=== PATIENT | female | born 1960 | race Caucasian/White ===

== ENCOUNTER 2020-11-23 16:18 | Inpatient (IN) | payer SELFPAY ==
--- OUTSIDE RECORDS SUMMARY | 2020-11-23 16:21 | XMS REPORT | Continuity of Care Document ---
:1960 Author Organization [facility] t Address [address] [place] [address] Care Team Providers Name Role Phone Unavailable Unavailable Unavailable Payers Payer Name Policy Type Policy Number Effective Date Expiration Date S ource Problems This patient has no known problems. Allergies, Adverse Reactions, Alerts Allergy Allergy Status Severity Reaction(s) Onset Inactive Treating Comm ents Source Name Type Date Date Clinician renata DA Active [place] [facility] ne 3-17 Clear 00:00: [address] Medications This patient has no known medications. Procedures This patient has no known procedures. Results Test Description Test Time Test Comments Results Result Comments Source COMPREHENSIVE METABOLIC PANEL 2019-06-27 05:44:00 Test Item Value Reference Range Interpretation Comme nts SODIUM (test code = NA) 139 mmol/L 134-147 N POTASSIUM (test code = K) 3.0 mmol/L 3.4-5.0 L CHLORIDE (test code = CL) 109 mmol/L 100-108 H CARBON DIOXIDE (test code = CO2) 25 mmol/L 21-32 N ANION GAP (test code = GAP) 5.0 GAP calc 4.0-15.0 N GLUCOSE (test code = GLU) 94 MG/DL 70-110 N BLOOD UREA NITROGEN (test code = BUN) 8 MG/DL 7-18 N GLOMERULAR FILTRATION RATE (test code = GFR) >=60 max estimate estG FR >60 CREATININE (test code = CREAT) 0.4 MG/DL 0.6-1.0 L TOTAL PROTEIN (test code = PROT) 6.1 G/DL 6.4-8.2 L ALBUMIN (test code = ALB) 2.7 G/DL 3.4-5.0 L GLOBULIN (test code = GLOB) 3.4 GM/dL ALBUMIN/GLOBULIN RATIO (test code = A/G) 0.8 RATIO 1.2-2.2 L CALCIUM (test code = CA) 8.4 MG/DL 8.5-10.1 L BILIRUBIN TOTAL (test code = BILT) 0.90 MG/DL 0.2-1.2 N SGOT/AST (test code = AST) 89 Unit/L 15-37 H SGPT/ALT (test code = ALT) 34 Unit/L 12-78 N ALKALINE PHOSPHATASE TOTAL (test code = ALKP) 71 Unit/L 45-117 N CBC W/AUTO [id number] 05:35:00 Test Item Value Reference Range Interpretation Comments WHITE BLOOD CELL (test code = 14.0 K/mm3 3.5-11.0 H WBC) RED BLOOD CELL (test code = RBC) 4.21 M/mm3 4.70-6.10 L HEMOGLOBIN (test code = HGB) 12.5 G/DL 10.4-14.9 N HEMATOCRIT (test code = HCT) 36.6 % 31.5-44.1 N MEAN CELL VOLUME (test code = 86.9 Fl 84.5-98.6 N MCV) MEAN CELL HGB (test code = MCH) 29.7 pg 27.0-34.2 N MEAN CELL HGB CONCETRATION (test 34.2 G/DL 31.5-34.0 H code = MCHC) RED CELL DISTRIBUTION WIDTH (test 12.8 SD 11.5-14.5 N code = RDW) PLATELET COUNT (test code = PLT) 197.0 K/mm3 150-450 N MEAN PLATELET VOLUME (test code = 11.60 fL 7.0-10.5 H MPV) NEUTROPHIL % (test code = NT%) 70.1 % 40-76 N LYMPHOCYTE % (test code = LY%) 19.0 % 20.5-51.1 L MONOCYTE % (test code = MO%) 9.3 % 1.7-9.3 N EOSINOPHIL % (test code = EO%) 1.1 % 0.0-6.0 N BASOPHIL % (test code = BA%) 0.5 % 0.0-2.0 N NEUTROPHIL # (test code = NT#) 9.82 K/mm3 1.8-7.6 H LYMPHOCYTE # (test code = LY#) 2.7 K/mm3 0.6-3.2 N MONOCYTE # (test code = MO#) 1.3 K/mm3 0.3-1.1 H EOSINOPHIL # (test code = EO#) 0.2 K/mm3 0.0-0.4 N BASOPHIL # (test code = BA#) 0.1 K/mm3 0.0-0.1 N MANUAL DIFF REQUIRED (test code = NO DIFF/SCN CRITERIA MDIFF) GLYCOSYLATED HEMOGLOBIN [id number] 06:58:00 Test Item Value Reference Range Interpretation Comments GLYCOSYLATED HEMOGLOBIN (HA1C) 5.1 % A1C 0.0-5.7 N (test code = GLYHGB) ESTIMATED AVERAGE GLUCOSE (test 100 MG/DLest code = EAG) COMPREHENSIVE METABOLIC [id number] 06:48:00 Test Item Value Reference Range Interpretation Comments SODIUM (test code = NA) 140 mmol/L 134-147 N POTASSIUM (test code = 3.4 mmol/L 3.4-5.0 N K) CHLORIDE (test code = 111 mmol/L 100-108 H CL) CARBON DIOXIDE (test 22 mmol/L 21-32 N code = CO2) ANION GAP (test code = 7.0 GAP calc 4.0-15.0 N GAP) GLUCOSE (test code = 101 MG/DL 70-110 N GLU) BLOOD UREA NITROGEN 6 MG/DL 7-18 L (test code = BUN) GLOMERULAR FILTRATION >=60 max estimate >60 RATE (test code = GFR) estGFR CREATININE (test code = 0.4 MG/DL 0.6-1.0 L CREAT) TOTAL PROTEIN (test code 5.8 G/DL 6.4-8.2 L = PROT) ALBUMIN (test code = 2.7 G/DL 3.4-5.0 L ALB) GLOBULIN (test code = 3.1 GM/dL GLOB) ALBUMIN/GLOBULIN RATIO 0.9 RATIO 1.2-2.2 L (test code = A/G) CALCIUM (test code = CA) 8.0 MG/DL 8.5-10.1 L BILIRUBIN TOTAL (test 0.70 MG/DL 0.2-1.2 N code = BILT) SGOT/AST (test code = 188 Unit/L 15-37 H AST) SGPT/ALT (test code = 43 Unit/L 12-78 N ALT) ALKALINE PHOSPHATASE 67 Unit/L 45-117 N TOTAL (test code = ALKP) LIPID PROFILE (CORONARY RISK)2019-06-26 06:48:00 Test Item Value Reference Range Interpretation Comments TRIGLYCERIDES (test code = TRIG) 170 MG/DL 0-150 H CHOLESTEROL (test code = CHOL) 177 MG/DL 133-200 N CHOLESTEROL/HDL RATIO (test code = 6.56 RATIO >0 CHOLHDL) HDL CHOLESTEROL (test code = HDL) 27 MG/DL 40-59 L NON-HDL CHOLESTEROL (test code = 150 mg/dL <130 H NHDL) LIPOPROTEIN LDL (test code = LDL) 126 MG/DL 0-129 N LDL/HDL (test code = LDL/HDL) 4.66 Ratio 1.48-3.22 Avg H [id number] 06:48:00 Test Item Value Reference Range Interpretation Comments PHOSPHOROUS (test code = PHOS) 2.2 MG/DL 2.5-4.9 L [id number] 06:48:00 Test Item Value Reference Range Interpretation Comments MAGNESIUM (test code = MAG) 1.8 MG/DL 1.8-2.4 N CBC W/AUTO [id number] 06:35:00 Test Item Value Reference Range Interpretation Comments WHITE BLOOD CELL (test code = 15.8 K/mm3 3.5-11.0 H WBC) RED BLOOD CELL (test code = RBC) 4.31 M/mm3 4.70-6.10 L HEMOGLOBIN (test code = HGB) 12.8 G/DL 10.4-14.9 N HEMATOCRIT (test code = HCT) 37.6 % 31.5-44.1 N MEAN CELL VOLUME (test code = 87.2 Fl 84.5-98.6 N MCV) MEAN CELL HGB (test code = MCH) 29.7 pg 27.0-34.2 N MEAN CELL HGB CONCETRATION (test 34.0 G/DL 31.5-34.0 N code = MCHC) RED CELL DISTRIBUTION WIDTH (test 12.9 SD 11.5-14.5 N code = RDW) PLATELET COUNT (test code = PLT) 208.0 K/mm3 150-450 N MEAN PLATELET VOLUME (test code = 11.30 fL 7.0-10.5 H MPV) NEUTROPHIL % (test code = NT%) 76.2 % 40-76 H LYMPHOCYTE % (test code = LY%) 17.3 % 20.5-51.1 L MONOCYTE % (test code = MO%) 5.4 % 1.7-9.3 N EOSINOPHIL % (test code = EO%) 0.6 % 0.0-6.0 N BASOPHIL % (test code = BA%) 0.5 % 0.0-2.0 N NEUTROPHIL # (test code = NT#) 12.06 K/mm3 1.8-7.6 H LYMPHOCYTE # (test code = LY#) 2.7 K/mm3 0.6-3.2 N MONOCYTE # (test code = MO#) 0.9 K/mm3 0.3-1.1 N EOSINOPHIL # (test code = EO#) 0.1 K/mm3 0.0-0.4 N BASOPHIL # (test code = BA#) 0.1 K/mm3 0.0-0.1 N MANUAL DIFF REQUIRED (test code = NO DIFF/SCN CRITERIA MDIFF) COAGULATION TIME [id number] 14:53:00 Test Item Value Reference Range Interpretation Comments COAGULATION TIME ACTIVATED (test 142 SECistat 74-125 H code = ACT) - XR CHEST 1 [id number] 10:40:00 Name: MARGIE COLLINS [facility] : 1960 Age/S: 58 / F [id number] [address] Unit #: [id number] Loc: [place] [address] Phys: Ramses Horowitz MD Acct: [id number] Dis Date: Status: ADM IN PHONE #: [phone] Exam Date: 06/25/2019 100 FAX #: Reason: STEMI EXAMS: CPT: [id number] XR CHEST 1 V [id number] Fluoro Time: DAP (Gy m2): Air Kerma (mGy): EXAM: - XR CHEST 1 V Location code:C3 HISTORY: Follow-up evaluation COMPARISON: 05/27/2019FINDINGS: Frontal view of the chest is submitted. Heart size within normal limits. Mild pulmonary congestive changes noted. The lungs are clear of focal consolidation. No effusion or evidence of pneumothorax.. No acute osseous pathology. IMPRESSION 1. Mild pulmonary congestive changes. No large effusion. at 1040 Reported and signed by: Ro Fuentes M.D. CC: Ramses Horowitz MD; Alistair Hays MD PAGE 1 Signed Report Name: MARGIE COLLINS [place] : 1960 Age/S: 58 / F [id number] [address] Unit #: [id number] Loc: [place] [address] Phys: Ramses Horowitz MD Acct: [id number] Dis Date: Status: ADM IN PHONE #: [phone] Exam Date: 06/25/2019 100 FAX #: Reason: STEMI EXAMS: CPT: [id number] XR CHEST 1 V 31300 Fluoro Time: DAP (Gy m2): Air Kerma (mGy): <Continued> Technologist: Una Ron, RT(R)(CT) Trnscb Date/Time: 06/25/2019 (1040) [id number] Orig Print D/T: S: 06/25/2019 (1043) PAGE 2 Signed ReportCOAGULATION TIME [id number] 07:17:00 Test Item Value Reference Range Interpretation Comments COAGULATION TIME ACTIVATED (test 384 SECistat 74-125 H code = ACT) TROPONIN I [id number] 07:12:00 Test Item Value Reference Range Interpretation Comments TROPONIN I RAPID 0.09 ng/mL 0.00-0.08 H Results above 0.08 are (test code = consistent with NACB TROPIRAP) IFCCCommittee recommendations to use the 99th percen tile of anormal populat ion as a reference decis ion-limit. - The use of se rial sampling and testingprotocol is arecommended pr actice.- An elevated tro poninlevel alone is often not sufficientfor d iagnosis of myocardial i nfraction. BASIC METABOLIC [id number] 06:22:00 Test Item Value Reference Range Interpretation Comments SODIUM (test code = NA) 140 mmol/L 134-147 N POTASSIUM (test code = 3.1 mmol/L 3.4-5.0 L K) CHLORIDE (test code = 110 mmol/L 100-108 H CL) CARBON DIOXIDE (test 21 mmol/L 21-32 N code = CO2) ANION GAP (test code = 9.0 GAP calc 4.0-15.0 N GAP) GLUCOSE (test code = 147 MG/DL 70-110 H GLU) BLOOD UREA NITROGEN 6 MG/DL 7-18 L (test code = BUN) GLOMERULAR FILTRATION >=60 max estimate >60 RATE (test code = GFR) estGFR CREATININE (test code = 0.7 MG/DL 0.6-1.0 N CREAT) CALCIUM (test code = CA) 8.5 MG/DL 8.5-10.1 N Completed by Nursing: IDANIAREATINE KINASE (CK)2019-06-25 06:22:00 Test Item Value Reference Range Interpretation Comments CREATINE KINASE (CK) (test code = 52 Unit/L 26-192 N CK) Completed by Nursing: [id number] 06:22:00 Test Item Value Reference Range Interpretation Comments TROPONIN-I (test 0.301 NG/ML 0.000-0.045 HH Negative: < /= 0.045 code = TROPI) Positive: >/= 0.046 Correlation wit h serial results, other cardiac markers, and cl inical findings is nec essary to determine the c linical significance of this result. Quantit ative results using d ifferent methodologies s hould not be compared to one another as nume rical results may hever yby method. Completed by Nursing: NOBASIC METABOLIC [id number] 06:03:00 Test Item Value Reference Range Interpretation Comments SODIUM (test code = NA) 140 mmol/L 134-147 N POTASSIUM (test code = K) 3.1 mmol/L 3.4-5.0 L CHLORIDE (test code = CL) 110 mmol/L 100-108 H CARBON DIOXIDE (test code = CO2) 21 mmol/L 21-32 N ANION GAP (test code = GAP) 9.0 GAP calc 4.0-15.0 N GLUCOSE (test code = GLU) 147 MG/DL 70-110 H BLOOD UREA NITROGEN (test code = 6 MG/DL 7-18 L BUN) GLOMERULAR FILTRATION RATE (test estGFR >60 code = GFR) CREATININE (test code = CREAT) MG/DL 0.6-1.0 CALCIUM (test code = CA) 8.5 MG/DL 8.5-10.1 N Completed by Nursing: IDANIAREATINE KINASE (CK)2019-06-25 06:03:00 Test Item Value Reference Range Interpretation Comments CREATINE KINASE (CK) (test code = CK) Unit/L 26-192 Completed by Nursing: [id number] 06:03:00 Test Item Value Reference Range Interpretation Comments TROPONIN-I (test code = TROPI) NG/ML 0.000-0.045 Completed by Nursing: NOCBC W/O [id number] 05:56:00 Test Item Value Reference Range Interpretation Comments WHITE BLOOD CELL (test code = 17.7 K/mm3 3.5-11.0 H WBC) RED BLOOD CELL (test code = RBC) 5.11 M/mm3 4.70-6.10 N HEMOGLOBIN (test code = HGB) 15.1 G/DL 10.4-14.9 H HEMATOCRIT (test code = HCT) 43.4 % 31.5-44.1 N MEAN CELL VOLUME (test code = 84.9 Fl 84.5-98.6 N MCV) MEAN CELL HGB (test code = MCH) 29.5 pg 27.0-34.2 N MEAN CELL HGB CONCETRATION (test 34.8 G/DL 31.5-34.0 H code = MCHC) RED CELL DISTRIBUTION WIDTH (test 12.7 SD 11.5-14.5 N code = RDW) PLATELET COUNT (test code = PLT) 323.0 K/mm3 150-450 N MEAN PLATELET VOLUME (test code = 11.10 fL 7.0-10.5 H MPV) - XR CHEST 1 [id number] 05:51:00 Name: MARGIE COLLINS [facility] : 1960 Age/S: 58 / F [address] [facility] Unit #: [id number] Loc: [place] [address] Phys: Ilir Bundy MD Acct: [id number] Dis Date: Status: ADM IN PHONE #: [phone] Exam Date: 06/25/201945 FAX #: Reason: chest pain EXAMS: CPT: [id number] XR CHEST 1 V 79837 Fluoro Time: DAP (Gy m2): Air Kerma (mGy): EXAMINATION: - XR CHEST 1 V LOCATION: H61 INDICATION/CLINICAL HISTORY: chest pain COMPARISON: None. TECHNIQUE: Frontal view of the chest. FINDINGS: Cardiomedia stinal silhouette: Mild enlargement of the cardiac silhouette. Pulmonary vasculature: Not congested. Lungs/pleura: No consolidation, pneumothorax or pleural effusion. Upper abdomen: Unremarkable. Regional osseous structures: Intact. IMPRESSION: No acute cardiopulmonary findings. at 0551 Reported and signed by: Mason Small M.D. CC: Ilir Bundy MD PAGE 1 Signed Report Name: MARGIE COLLINS [place] : 1960 Age/S: 58 / F [id number] Unit #: [id number] Loc: [place] [address] Phys: Ilir Bundy MD Acct: [id number] Dis Date: Status: ADM IN PHONE #: [phone] Exam Date: 06/25/201945 FAX#: Reason: chest pain EXAMS: CPT: [id number] XR CHEST 1 V 86887 Fluoro Time: DAP (Gy m2): Air Kerma (mGy): <Continued& gt; Technologist: RT Michael(R) Trnscb Date/Time: 06/25/2019 (0551) [id number] Orig Print D/T: S: 06/25/2019 (0554) PAGE 2 Signed Report
[2020-11-23 18:50] LABS: Urine Blood 1+ (Negative); Urine Glucose Negative (Negative); Urine Protein 2+ (Negative)
[2020-11-23 19:10] LABS: Urine Bacteria 20-50 /HPF (<20); Urine Mucus 2+ /HPF (NONE SEEN)
--- NOTE | 2020-11-23 21:59 | RAD REPORT ---
EXAM DESCRIPTION: RAD - Chest Single View - 11/23/2020 9:15 pm CLINICAL HISTORY: COUGH COMPARISON: August 2012 TECHNIQUE: AP portable chest image was obtained 11/23/2020 9:15 pm . FINDINGS: No peripheral mass or consolidation. Interstitial pattern is similar to comparison when ad justing for the differences in technology and technique between the 8 year interval. No failure or vo lume overload. Heart and vasculature are normal. No measurable pleural effusion and no pneumothorax. No acute bony abnormality seen. No acute aortic findings suspected. IMPRESSION: No acute cardiopulmonary process. No significant change from comparison study.
[2020-11-23 22:11] LABS: Protime INR 1.28
[2020-11-23 22:12] LABS: Absolute Lymphocytes (CBC) 2.4 K/uL (0.7-4.9); Basophils % 0.3 % (0-1.3); Hematocrit 33.5 % (36.0-45.0); Lymphocytes % 14.4 % (15.3-44.8); MPV 8.5 fL (7.6-11.3)
[2020-11-23 22:24] LABS: ALT/SGPT 71 U/L (12-78); AST/SGOT 44 U/L (15-37); Albumin 2.4 g/dL (3.4-5.0); Alkaline Phosphatase 292 U/L (45-117); BUN Blood Urea Nitrogen 13 mg/dL (7-18); Bicarbonate 32 mmol/L (21-32); Bilirubin Direct 0.2 mg/dL (0-0.2); Bilirubin Total 0.6 mg/dL (0.2-1.0); Glucose Level 104 mg/dL (74-106); Lipase 110 U/L (73-393); NT PRO-BNP 793 pg/mL (<125); Protein, Total 8.2 g/dL (6.4-8.2); Sodium Level 135 mmol/L (136-145); Troponin (Emerg Dept Use Only) < 0.02 ng/mL (0.0-0.045)
[2020-11-23 22:25] LABS: Potassium 2.8 mmol/L (3.5-5.1)
[2020-11-23] MEDS ORDERED: CEFTRIAXONE/SWI 1gm 1 GM/10 ML SYR ONE (22:27)
[2020-11-23] MEDS ORDERED: NA CHLORIDE 0.9% 1,000 ML ONE (22:27)
[2020-11-23 22:31] LABS: Thyroid Stimulating Hormone 1.7 uIU/mL (0.360-3.740)
[2020-11-23 22:34] LABS: Magnesium 2.1 mg/dL (1.8-2.4)
[2020-11-23 22:47] LABS: Phosphorus 3.8 mg/dL (2.5-4.9)
[2020-11-23] MEDS ORDERED: NS KCL 20MEQ 1,000 ML IV ONE (23:55)
[2020-11-23] MEDS ORDERED: FAMOTIDINE 20 MG/2 ML VIAL IV ONE (23:55)
[2020-11-23] MEDS ORDERED: POTASSIUM 25 MEQ EFFERV TAB ONE (23:55)
--- NOTE | 2020-11-24 00:25 | ER ---
Nurse's Notes [facility] Name: Idalmis Charles Age: 60 yrs Sex: Female : 1960 Arrival Date: 11/23/2020 Time: 16:43 Bed 28 Private MD: Diagnosis: Pyelonephritis acute;Hypokalemia;Weakness;Elevated white blood cell count Presentation: 11/23 16:59 Chief complaint: Generalized weakness and lack of appetite x 2 weeks. Denies hb pain/fever/cough/N/V/D. Coronavirus screen: At this time, the client does not indicate any symptoms associated with coronavirus-19. Ebola Screen: No symptoms or risks identified at this time. Risk Assessment: Do you want to hurt yourself or someone else? Patient reports no desire to harm self or others. Onset of symptoms was November 09, 2020. 16:59 Method Of Arrival: Wheelchair hb 16:59 Acuity: BAR 3 hb Historical: - Allergies: 17:01 meperidine HCl; hb - Immunization history:: Client reports receiving the 2nd dose of the Covid vaccine. - Social history:: Smoking status: Patient denies any tobacco usage or history of. Assessment: 11/24 03:05 General: Appears in no apparent distress. comfortable, Behavior is calm, cooperative. ch4 Pain: Denies pain. Neuro: No deficits noted. Cardiovascular: No deficits noted. Respiratory: Respiratory pattern is tachypnea. GI: No deficits noted. : Reports burning with urination, pain urgency, urinary frequency. EENT: No deficits noted. Derm: No deficits noted. Musculoskeletal: Reports weakness in right leg and left leg. 05:08 Reassessment: Patient is alert, oriented x 3, equal unlabored respirations, skin ch4 warm/dry/pink. Patient states feeling better. Vital Signs: 11/23 16:59 BP 128 / 88; Pulse 99; Resp 16; Temp 97.5; Pulse Ox 98% on R/A; Weight 65.77 kg; Height hb 5 ft. 2 in. (157.48 cm); Pain 0/10; 11/24 01:48 BP 136 / 96; Pulse 97; Resp 16; Temp 97.8; Pulse Ox 95% ; ch4 03:06 BP 100 / 65; Pulse 98; Resp 27; Temp 97.9; Pulse Ox 96% ; ch4 05:09 BP 116 / 85; Pulse 93; Resp 20; Temp 97.9; Pulse Ox 96% on R/A; ch4 11/23 16:59 Body Mass Index 26.52 (65.77 kg, 157.48 cm) hb ED Course: 11/23 16:43 Patient arrived in ED. ds1 17:00 Triage completed. hb 17:01 Arm band placed on. hb 18:51 Urine Microscopic Only Sent. hb 20:12 Antony Palacio MD is Attending Physician. ju 21:15 XRAY Chest (1 view) In Process Unspecified. EDMS 22:30 Abel Kapadia MD is Hospitalizing Provider. ju 22:58 CT Chest, Abdomen, Pelvis - W/Contrast In Process Unspecified. EDMI 11/24 00:17 Giancarlo Pereira is Hospitalizing Provider. ju 01:34 Violeta Gutierrez, VIKASH is Primary Nurse. ch4 01:44 LFT's Sent. ch4 01:44 CBC with Diff Sent. ch4 01:44 Basic Metabolic Panel Sent. ch4 03:06 Inserted saline lock: 20 gauge in right antecubital area, using aseptic technique. ch4 Administered Medications: 11/23 22:47 Discontinued: NS 0.9% 1000 ml IV at 1 bolus Per protocol; 1000 mL bolus ju 22:15 Drug: NS 0.9% 1000 ml Route: IV; Rate: 1 bolus; Site: right antecubital; bb 23:46 Follow up: IV Status: Completed infusion; IV Intake: 1000ml bb 22:15 Drug: Rocephin (cefTRIAXone) 1 grams Route: IV; Rate: per protocol; Site: right bb antecubital; 23:45 Drug: Potassium Effervescent Tablet 50 mEq Route: PO; bb 23:45 Drug: Pepcid (famotidine) 20 mg Route: IVP; Site: right antecubital; bb 23:46 Drug: NS 0.9% with KCl 20 mEq/L 1000 ml Route: IV; Rate: 125 ml/hr; Site: right bb antecubital; Intake: 23:46 IV: 1000ml; Total: 1000ml. bb Outcome: 22:31 Decision to Hospitalize by Provider. ju 11/24 00:25 Decision to Hospitalize by Provider. ju 11/25 12:59 Patient left the ED. ld1 Signatures: Dispatcher [employer] Antony Jennings MD MD cha Sanford, Kathy ds1 Awilda Burr, RN RN bb Ana Lilia Jones, RN RN hb Stefanie Ayers RN RN ld1 Violeta Gutierrez RN RN ch4
--- NOTE | 2020-11-24 00:26 | EDPHYS ---
Physician Documentation [facility] Name: Idalmis Charles Age: 60 yrs Sex: Female : 1960 Arrival Date: 11/23/2020 Time: 16:43 Bed 28 Private MD: MARILUZ Physician Antony Palacio HPI: 11/23 20:41 This 60 yrs old Female presents to ER via Wheelchair with complaints of ju General Weakness. 20:41 weak, not eating, foul urine. Onset: The symptoms/episode began/occurred 5 day(s) ago. ju Severity of symptoms: At their worst the symptoms were mild in the emergency department the symptoms are unchanged. The patient has not experienced similar symptoms in the past. Historical: - Allergies: 17:01 meperidine HCl; hb - Immunization history:: Client reports receiving the 2nd dose of the Covid vaccine. - Social history:: Smoking status: Patient denies any tobacco usage or history of. ROS: 20:42 Constitutional: Negative for fever, chills, and weight loss, Eyes: Negative for injury, ju pain, redness, and discharge, ENT: Negative for injury, pain, and discharge, Neck: Negative for injury, pain, and swelling, Cardiovascular: Negative for chest pain, palpitations, and edema, Respiratory: Negative for shortness of breath, cough, wheezing, and pleuritic chest pain, Back: Negative for injury and pain, MS/Extremity: Negative for injury and deformity, Skin: Negative for injury, rash, and discoloration, Neuro: Negative for headache, weakness, numbness, tingling, and seizure, Psych: Negative for depression, anxiety, suicide ideation, homicidal ideation, and hallucinations, Allergy/Immunology: Negative for hives, rash, and allergies, Endocrine: Negative for neck swelling, polydipsia, polyuria, polyphagia, and marked weight changes, Hematologic/Lymphatic: Negative for swollen nodes, abnormal bleeding, and unusual bruising. 20:42 Abdomen/GI: Positive for 20:42 : Positive for foul smelling urine. Exam: 20:42 Constitutional: This is a well developed, well nourished patient who is awake, alert, ju and in no acute distress. Head/Face: Normocephalic, atraumatic. Eyes: Pupils equal round and reactive to light, extra-ocular motions intact. Lids and lashes normal. Conjunctiva and sclera are non-icteric and not injected. Cornea within normal limits. Periorbital areas with no swelling, redness, or edema. ENT: Nares patent. No nasal discharge, no septal abnormalities noted. Tympanic membranes are normal and external auditory canals are clear. Oropharynx with no redness, swelling, or masses, exudates, or evidence of obstruction, uvula midline. Mucous membranes moist. Neck: Trachea midline, no thyromegaly or masses palpated, and no cervical lymphadenopathy. Supple, full range of motion without nuchal rigidity, or vertebral point tenderness. No Meningismus. Chest/axilla: Normal chest wall appearance and motion. Nontender with no deformity. No lesions are appreciated. Cardiovascular: Regular rate and rhythm with a normal S1 and S2. No gallops, murmurs, or rubs. Normal PMI, no JVD. No pulse deficits. Respiratory: Lungs have equal breath sounds bilaterally, clear to auscultation and percussion. No rales, rhonchi or wheezes noted. No increased work of breathing, no retractions or nasal flaring. Abdomen/GI: Soft, non-tender, with normal bowel sounds. No distension or tympany. No guarding or rebound. No evidence of tenderness throughout. Back: No spinal tenderness. No costovertebral tenderness. Full range of motion. Skin: Warm, dry with normal turgor. Normal color with no rashes, no lesions, and no evidence of cellulitis. MS/ Extremity: Pulses equal, no cyanosis. Neurovascular intact. Full, normal range of motion. Neuro: Awake and alert, GCS 15, oriented to person, place, time, and situation. Cranial nerves II-XII grossly intact. Motor strength 5/5 in all extremities. Sensory grossly intact. Cerebellar exam normal. Normal gait. Psych: Awake, alert, with orientation to person, place and time. Behavior, mood, and affect are within normal limits. 20:42 Musculoskeletal/extremity: DVT Exam: No signs of deep vein thrombosis. no pain, no swelling, no tenderness, negative Homans' sign noted on exam, no appreciated bluish discoloration, no erythema, no increased warmth. 22:12 ECG was reviewed by the Attending Physician. ju Vital Signs: 16:59 BP 128 / 88; Pulse 99; Resp 16; Temp 97.5; Pulse Ox 98% on R/A; Weight 65.77 kg; Height hb 5 ft. 2 in. (157.48 cm); Pain 0/10; 11/24 01:48 BP 136 / 96; Pulse 97; Resp 16; Temp 97.8; Pulse Ox 95% ; ch4 03:06 BP 100 / 65; Pulse 98; Resp 27; Temp 97.9; Pulse Ox 96% ; ch4 05:09 BP 116 / 85; Pulse 93; Resp 20; Temp 97.9; Pulse Ox 96% on R/A; ch4 11/23 16:59 Body Mass Index 26.52 (65.77 kg, 157.48 cm) hb [facility]: 11/23 20:12 Patient medically screened. [facility] 20:43 Differential diagnosis: urinary tract infection. Data reviewed: vital signs, nurses [facility] notes, lab test result(s), EKG, radiologic studies, plain films. Data interpreted: environmental monitoring specialist: rate is 99 beats/min, rhythm is regular, Pulse oximetry: on room air is 98 %. Test interpretation: by ED physician or midlevel provider: ECG, plain radiologic studies. Counseling: I had a detailed discussion with the patient and/or guardian regarding: the historical points, exam findings, and any diagnostic results supporting the discharge/admit diagnosis, lab results, radiology results. 11/23 18:49 Order name: Urine Microscopic Only 11/23 18:49 Order name: Urine Dipstick-Ancillary; Complete Time: 20:30 [facility] 11/23 18:49 Order name: Urine Microscopic Only; Complete Time: 20:30 [facility] 11/23 19:11 Order name: Urine Culture [facility] 11/23 20:32 Order name: Basic Metabolic Panel [facility] 11/23 20:32 Order name: CBC with Diff [facility] 11/23 20:32 Order name: LFT's [facility] 11/23 20:32 Order name: Magnesium; Complete Time: 22:44 [facility] 11/23 20:32 Order name: NT PRO-BNP; Complete Time: 22:44 [facility] 11/23 20:32 Order name: PT-INR; Complete Time: 22:26 [facility] 11/23 20:32 Order name: Troponin (emerg Dept Use Only); Complete Time: 22:44 [facility] 11/23 20:32 Order name: Lipase; Complete Time: 22:44 [facility] 11/23 20:32 Order name: Blood Culture Adult (2) ju 11/23 20:32 Order name: Basic Metabolic Panel; Complete Time: 22:44 [facility] 11/23 20:32 Order name: CBC with Automated Diff; Complete Time: 22:26 [facility] 11/23 20:32 Order name: Liver (Hepatic) Function; Complete Time: 22:44 [facility] 11/23 21:54 Order name: TSH; Complete Time: 22:48 ju 11/23 22:35 Order name: Phosphorus; Complete Time: 22:48 ED[facility] 11/24 01:24 Order name: SARS-COV-2 RT PCR [facility] 11/24 07:54 Order name: CBC with Automated Diff [facility] 11/24 08:31 Order name: Comprehensive Metabolic Panel [facility] 11/24 08:31 Order name: Lipid Profile ED[facility] 11/24 08:31 Order name: Magnesium EDMS 11/24 08:31 Order name: Thyroid Stimulating Hormone EDMS 11/25 03:39 Order name: CBC with Automated Diff EDMS 11/25 03:44 Order name: Comprehensive Metabolic Panel EDMS 11/25 03:44 Order name: Magnesium EDMS 11/25 04:10 Order name: T4 Free EDMS 11/23 18:49 Order name: Urine Dipstick-Ancillary (obtain specimen); Complete Time: 18:49 11/23 20:32 Order name: XRAY Chest (1 view); Complete Time: 22:26 ju 11/23 20:32 Order name: EKG; Complete Time: 20:33 ju 11/23 20:32 Order name: Cardiac monitoring; Complete Time: 01:44 [facility] 11/23 20:32 Order name: EKG - Nurse/Tech; Complete Time: 01:44 [facility] 11/23 20:32 Order name: IV Saline Lock; Complete Time: 00:53 [facility] 11/23 20:32 Order name: Labs collected and sent; Complete Time: 00:53 [facility] 11/23 20:32 Order name: O2 Per Protocol; Complete Time: 00:53 [facility] 11/23 20:32 Order name: O2 Sat Monitoring; Complete Time: 00:53 [facility] 11/23 22:29 Order name: CT Chest, Abdomen, Pelvis - W/Contrast [facility] 11/25 04:10 Order name: Transferrin Sat/Iron Binding [facility] 11/25 04:10 Order name: Ferritin [facility] 11/25 04:10 Order name: Vitamin B12 Level EDMS EC:12 Rate is 102 beats/min. Rhythm is regular. QRS [place] is Normal. ID interval is normal. ju QRS interval is normal. QT interval is normal. No Q waves. T waves are Normal. No ST changes noted. Clinical impression: Abnormal EKG without significant change and No evidence of ischemia. Interpreted by me. Reviewed by me. Administered Medications: 22:47 Discontinued: NS 0.9% 1000 ml IV at 1 bolus Per protocol; 1000 mL bolus ju 22:15 Drug: NS 0.9% 1000 ml Route: IV; Rate: 1 bolus; Site: right antecubital; bb 23:46 Follow up: IV Status: Completed infusion; IV Intake: 1000ml bb 22:15 Drug: Rocephin (cefTRIAXone) 1 grams Route: IV; Rate: per protocol; Site: right bb antecubital; 23:45 Drug: Potassium Effervescent Tablet 50 mEq Route: PO; bb 23:45 Drug: Pepcid (famotidine) 20 mg Route: IVP; Site: right antecubital; bb 23:46 Drug: NS 0.9% with KCl 20 mEq/L 1000 ml Route: IV; Rate: 125 ml/hr; Site: right bb antecubital; Disposition Summary: 11/24/20 00:25 Hospitalization Ordered Hospitalization Status: Inpatient Admission(11/24/20 00:25) ju Provider: Giancarlo Pereira(11/24/20 00:25) ju Condition: Fair(11/24/20 00:25) ju Problem: new(11/24/20 00:25) ju Symptoms: have improved(11/24/20 00:25) ju Bed/Room Type: Standard(11/24/20 00:25) ju Location: [facility] ER HOLD(11/24/20 02:35) mw Room Assignment: ERHOLD-(11/24/20 02:35) mw Diagnosis - Pyelonephritis acute ju - Hypokalemia ju - Weakness ju - Elevated white blood cell count ju Forms: - Medication Reconciliation Form ju - SBAR form ju Signatures: Dispatcher [employer] [facility] Yaritza Hanson RN RN mw Anderson, Corey, MD MD cha Ballard, Brenda, RN RN bb Attema, Lee, FNP-C FNP-Ana Lilia Paniagua, RN RN hb Corrections: (The following items were deleted from the chart) 22:31 22:31 Inpatient Admission ju ju 22:31 22:31 Abel Kapadia ju ju 22:31 22:31 Telemetry/MedSurg (Inpatient) ju ju 22:31 22:31 Stable ju ju 22:31 22:31 new ju ju 22:31 22:31 have improved ju ju 22:31 22:31 Standard ju ju 22:31 22:31 ju ju 22:31 22:31 COPD/ Chronic obstructive pulmonary disease, unspecified ju ju 22:31 22:31 COPD/ Chronic obstructive pulmonary disease with (acute) exacerbation ju ju 22:31 22:31 Dyspnea ju ju 22:35 22:28 PHOSPHORUS+C.LAB.BRZ ordered. EDMS EDMS 23:56 23:42 CORONAVIRUS+MR.LAB.BRZ ordered. EDMS EDMS 11/24 02:35 00:25 Telemetry/MedSurg (Inpatient) ju mw 02:35 00:25 ju mw
--- NOTE | 2020-11-24 01:26 | P.HP ---
Certification for Inpatient Patient admitted to: Inpatient With expected LOS: >2 Midnights Patient will require the following post-hospital care: None Practitioner: I am a practitioner with admitting privileges, knowledge of patient current condition, hospital course, and medical plan of care. Services: Services provided to patient in accordance with Admission requirements found in Title 42 Section 412.3 of the Code of Federal Regulations Patient History Date of Service: 11/24/20 Primary Care Provider: Dr. Fernandes Reason for admission: Bilateral pyelonephritis, hypokalemia History of Present Illness: 60-year-old female with history of CAD, hyperlipidemia, hypertension presents emergency department for malaise, fatigue over the course of last 2 weeks. Patient was evaluated in the emergency department labs were significant for white blood cell count 16.7 hemoglobin 1.5 adequate 33.5 sodium 135 potassium 2.8 chloride 95 alk phos 292 BNP 793 urinalysis with positive nitrite 2+ leukoesterase, microscopic with 20-50 bacteria greater than [address] abdomen pelvis with bilateral pyelonephritis. ED provider wishes to admit for hypokalemia, pyelonephritis. Allergies meperidine HCl [From Demerol] Allergy (Severe, Verified 08/29/12 20:58) Pt states "went into coma for 21 days" Home Medications: Propranolol [Inderal*] 20 mg PO BID 08/28/12 Valsartan [Diovan*] DAILY 08/28/12 Butalbital/Acetaminophen [Bupap Tablet] 1 each PO Q6HP PRN #40 tablet 08/30/12 Naproxen [Naprosyn] 500 mg PO BID #60 tablet 08/30/12 Tizanidine [Zanaflex*] 2 mg PO TIDP PRN #60 tab 08/30/12 - Past Medical/Surgical History Diabetic: No -: CAD -: Hypertension -: Hyperlipidemia -: Hysterectomy -: Left ankle -: Right surgery Psychosocial/ Personal History: Patient lives at home with her family - Family History Father -: Cancer - Social History Smoking Status: Never smoker Alcohol use: No CD- Drugs: No Caffeine use: Yes Place of Residence: Home Review of Systems 10-point ROS is otherwise unremarkable General: Chills, Sweats, Weakness, Malaise Physical Examination - Physical Exam General: Alert, In no apparent distress, Oriented x3 HEENT: Atraumatic, PERRLA, Mucous membr. moist/pink, EOMI, Sclerae nonicteric Neck: Supple, 2+ carotid pulse no bruit, No LAD, Without JVD or thyroid abnormality Respiratory: Clear to auscultation bilaterally, Normal air movement Cardiovascular: Regular rate/rhythm, Normal S1 S2 Capillary refill: <2 Seconds Gastrointestinal: Normal bowel sounds, No tenderness Musculoskeletal: No tenderness Integumentary: No rashes Neurological: Normal speech, Normal strength at 5/5 x4 extr, Normal tone, Normal affect - Studies Laboratory Data (last 24 hrs) 11/23/20 22:27: Phosphorus Cancelled 11/23/20 21:51: Phosphorus 3.8 11/23/20 21:51: PT 14.7 H, INR 1.28 11/23/20 21:51: WBC 16.70 H, Hgb 11.5 L, Hct 33.5 L, Plt Count 514 H 11/23/20 21:20: Sodium 135 L, Potassium 2.8 L*, BUN 13, Creatinine 0.58, Glucose 104, Magnesium 2.1, Total Bilirubin 0.6, AST 44 H, ALT 71, Alkaline Phosphatase 292 H, Lipase 110 Assessment and Plan - Plan Assessment: Bilateral pyelonephritis Hypokalemia CAD Hypertension Hyperlipidemia Plan: Bilateral pyelonephritis: Continue with IV Rocephin, full liquid diet advance as tolerated. Daily labs. Patient afebrile at this time. Anticipate clinical improvement over the course next 24 to 48 hours. Hypokalemia: Replaced in ER, continue with potassium protocol. CAD: Continue medications. Hypertension: Continue home medications Hyperlipidemia: Continue home medications DVT PPX: Lovenox Code status: Full Discharge Plan: Home Plan to discharge in: 48 Hours - Advance Directives Does patient have a Living Will: Yes Does patient have a Durable POA for Healthcare: No - Code Status/Comfort Care Code Status Assessed: Yes (Full code) Critical Care: No Time Spent Managing Pts Care (In Minutes): 55
--- NOTE | 2020-11-24 06:23 | P.PN ---
Subjective Date of Service: 11/24/20 Primary Care Provider: Dr. Fernandes Chief Complaint: Bilateral pyelonephritis, hypokalemia Subjective: Improving (Patient reports improvement.) Physical Examination - Studies Laboratory Data (last 24 hrs) 11/23/20 22:27: Phosphorus Cancelled 11/23/20 21:51: Phosphorus 3.8 11/23/20 21:51: PT 14.7 H, INR 1.28 11/23/20 21:51: WBC 16.70 H, Hgb 11.5 L, Hct 33.5 L, Plt Count 514 H 11/23/20 21:20: Sodium 135 L, Potassium 2.8 L*, BUN 13, Creatinine 0.58, Glucose 104, Magnesium 2.1, Total Bilirubin 0.6, AST 44 H, ALT 71, Alkaline Phosphatase 292 H, Lipase 110 Assessment & Plan Discharge Plan: Home Plan to discharge in: 48 Hours Physician Review Additional Text: COVID: negative CT Scan: TECHNIQUE: CT images through the chest, abdomen, and pelvis following IV contrast. Multiplanar reformats. Automated exposure control was utilized on this examination as a dose lowering technique. CT CHEST FINDINGS: Heart and mediastinum: Heart size is normal. Small pericardial effusion. Severe multivessel calcified and soft atherosclerosis. Mediastinal lymph nodes are increased in number but not in size and are favored to be reactive. Thyroid gland: Visualized portions are normal. Lungs: Moderate emphysema. Numerous small bilateral pulmonary nodules measure up to 4 mm in the left upper lobe (reference nodule series 401 image 26, left lower lobe). Airways: No filling defects. No bronchiectasis. Pleura: No pneumothorax. No significant pleural effusion. Musculoskeletal and soft tissues: Breast implants are noted. CHEST IMPRESSION: 1. Numerous bilateral small pulmonary nodules are likely infectious or inflammatory. If patient is low risk for malignancy, no routine follow-up imaging is recommended; if patient is high risk for malignancy, a non- contrast Chest CT at 12 months is optional. If performed and the nodules are stable at 12 months, no further follow-up is recommended. 2. Small pericardial effusion. 3. Severe atherosclerosis. 4. Moderate emphysema. 5. Reactive appearing mediastinal lymph nodes. CT ABDOMEN & PELVIS FINDINGS: Liver: A 1.5 cm arterially enhancing lesion is noted in the lateral right liver, likely representing a perfusion anomaly or hemangioma. Gallbladder and biliary: Normal gallbladder. Unremarkable biliary tree. Pancreas: Normal. Spleen: Normal. Kidneys and adrenal glands: Normal adrenal glands. Bilateral renal cysts are present. Areas of cortical hypoenhancement are present bilaterally. Left ureteral wall enhancement is noted. Stomach and Small Bowel: The stomach and small bowel are normal. Urinary bladder: Normal. Uterus and Adnexa: Hysterectomy. Colon and Appendix: The colon is unremarkable. No evidence of appendicitis. Peritoneal cavity: No ascites or free air. Retroperitoneum and lymph nodes: Retroperitoneal lymph nodes are increased in number but not in size and are likely reactive. Vascular: Severe multivessel calcified and soft atherosclerosis with focal 50% narrowing of the aorta on series 501 image 20 at the diaphragmatic hiatus. Musculoskeletal and soft tissues: Soft tissues are unremarkable. Lumbar spondylosis.No aggressive bone lesions. No compression fracture. ABDOMEN AND PELVIS IMPRESSION: 1. Bilateral renal cortical hypoenhancing areas likely represent pyelonephritis. 2. Severe atherosclerosis with 50% focal narrowing of the aorta at the diaphragmatic hiatus. CXR: COMPARISON: August 2012 TECHNIQUE: AP portable chest image was obtained 11/23/2020 9:15 pm . FINDINGS: No peripheral mass or consolidation. Interstitial pattern is similar to comparison when adjusting for the differences in technology and technique between the 8 year interval. No failure or volume overload. Heart and vasculature are normal. No measurable pleural effusion and no pneumothorax. No acute bony abnormality seen. No acute aortic findings suspected. IMPRESSION: No acute cardiopulmonary process. No significant change from comparison study. Physical exam: General: Alert, In no apparent distress, Oriented x3 HEENT: Atraumatic, PERRLA, Mucous membr. moist/pink, EOMI, Sclerae nonicteric Neck: Supple, 2+ carotid pulse no bruit, No LAD, Without JVD or thyroid abnormality Respiratory: Clear to auscultation bilaterally, Normal air movement Cardiovascular: Regular rate/rhythm, Normal S1 S2 Capillary refill: <2 Seconds Gastrointestinal: Normal bowel sounds, No tenderness Musculoskeletal: No tenderness Integumentary: No rashes Neurological: Normal speech, Normal strength at 5/5 x4 extr, Normal tone, Normal affect Impression: Bilateral pyelonephritis Hypokalemia CAD Hypertension Hyperlipidemia CT scan showing multiple small pulmonary nodules, moderate emphysema, reactive mediastinal lymph nodes, with possible small pericardial effusion Anemia likely dilutional Plan: Bilateral pyelonephritis: Patient improved. Will change IV Rocephin to IV Cipro for better pyelonephritis coverage. Will check echocardiogram. Await blood, urine culture results. Will advance diet. Will provide medication for pain. Continue Lovenox for DVT prophylaxis. Anticipate continued improvement. Hypokalemia: Electrolyte protocol in place. CAD: Need to obtain and restart home medication. Hypertension: Blood pressure stable off medication at this time. Obtain and verify home medication. Hyperlipidemia: Obtain and verify home medication. CT scan showing multiple small pulmonary nodules, moderate emphysema, reactive mediastinal lymph nodes, with possible small pericardial effusion: Will check echocardiogram to further evaluate. Plenty nodules can be followed up as an outpatient with pulmonology with repeat CT scan. Anemia likely dilutional: Continue to monitor lab closely. Will check iron and B12 studies. DVT PPX: Lovenox Code status: Full Discharge Plan: Home Time Spent Managing Pts Care (In Minutes): 55
[2020-11-24] MEDS ORDERED: ONDANSETRON 4 MG/2 ML VIAL IV PRN (07:19)
[2020-11-24] MEDS ORDERED: ACETAMINOPHEN 500 MG TAB PO PRN (07:19)
[2020-11-24] MEDS: NA CHLORIDE 0.9% 1,000 ML IV SCH ×3 (07:19→23:05)
[2020-11-24 07:53] LABS: Basophils % 0.4 % (0-1.3); Hematocrit 28.2 % (36.0-45.0); Lymphocytes % 15.6 % (15.3-44.8); MPV 8.2 fL (7.6-11.3); RBC Red Blood Cell Count 3.25 M/uL (3.86-4.86)
[2020-11-24] MEDS: CIPROFLOXACIN 400mg IV 400 MG/200 ML BAG IV SCH ×2 (08:17→21:02)
[2020-11-24] MEDS: ENOXAPARIN 40 MG/0.4 ML SQ SCH (08:17)
[2020-11-24 08:20] LABS: ALT/SGPT 48 U/L (12-78); AST/SGOT 25 U/L (15-37); Alkaline Phosphatase 221 U/L (45-117); BUN Blood Urea Nitrogen 10 mg/dL (7-18); Bicarbonate 32 mmol/L (21-32); Bilirubin Total 0.5 mg/dL (0.2-1.0); Glucose Level 105 mg/dL (74-106); HDL Cholesterol 14 mg/dL (40-60); LDL Cholesterol, Calculated 87 (<130); Potassium 3.2 mmol/L (3.5-5.1); Protein, Total 6.7 g/dL (6.4-8.2); Sodium Level 140 mmol/L (136-145)
[2020-11-24] MEDS ORDERED: CIPROFLOXACIN 400mg IV 400 MG/200 ML BAG IV ONE ×2 (08:29→21:24)
[2020-11-24] MEDS ORDERED: ENOXAPARIN 40 MG/0.4 ML SQ ONE (08:29)
[2020-11-24] MEDS ORDERED: NA CHLORIDE 0.9% 1,000 ML ONE ×2 (08:30→23:15)
[2020-11-24 08:57] VITALS: BMI 26.5
[2020-11-24] MEDS ORDERED: CEFTRIAXONE/SWI 1gm 1 GM/10 ML SYR IV SCH (09:00)
[2020-11-24] MEDS ORDERED: CEFTRIAXONE 1 GM/NS 50 ML 1 GM/50 ML BAG IV SCH (09:00)
--- NOTE | 2020-11-24 10:49 | RAD REPORT ---
EXAM DESCRIPTION: CT Chest, Abdomen, and Pelvis COMPARISON: None. CLINICAL HISTORY: [facility] TECHNIQUE: CT images through the chest, abdomen, and pelvis following IV contrast. Multiplanar refor mats. Automated exposure control was utilized on this examination as a dose lowering technique. CT CHEST FINDINGS: Heart and mediastinum: Heart size is normal. Small pericardial effusion. Severe m ultivessel calcified and soft atherosclerosis. Mediastinal lymph nodes are increased in number but no t in size and are favored to be reactive. Thyroid gland: Visualized portions are normal. Lungs: Moderate emphysema. Numerous small bilateral pulmonary nodules measure up to 4 mm in the left upper lobe (reference nodule series 401 image 26, left lower lobe). Airways: No filling defects. No bronchiectasis. Pleura: No pneumothorax. No significant pleural effusion. Musculoskeletal and soft tissues: Breast implants are noted. CHEST IMPRESSION: 1. Numerous bilateral small pulmonary nodules are likely infectious or inflammator y. If patient is low risk for malignancy, no routine follow-up imaging is recommended; if patient i s high risk for malignancy, a non-contrast Chest CT at 12 months is optional. If performed and the no dules are stable at 12 months, no further follow-up is recommended. 2. Small pericardial effusion. 3. Severe atherosclerosis. 4. Moderate emphysema. 5. Reactive appearing mediastinal lymph nodes. CT ABDOMEN & PELVIS FINDINGS: Liver: A 1.5 cm arterially enhancing lesion is noted in the lateral ri ght liver, likely representing a perfusion anomaly or hemangioma. Gallbladder and biliary: Normal gallbladder. Unremarkable biliary tree. Pancreas: Normal. Spleen: Normal. Kidneys and adrenal glands: Normal adrenal glands. Bilateral renal cysts are present. Areas of cortic al hypoenhancement are present bilaterally. Left ureteral wall enhancement is noted. Stomach and Small Bowel: The stomach and small bowel are normal. Urinary bladder: Normal. Uterus and Adnexa: Hysterectomy. Colon and Appendix: The colon is unremarkable. No evidence of appendicitis. Peritoneal cavity: No ascites or free air. Retroperitoneum and lymph nodes: Retroperitoneal lymph nodes are increased in number but not in size and are likely reactive. Vascular: Severe multivessel calcified and soft atherosclerosis with focal 50% narrowing of the aorta on series 501 image 20 at the diaphragmatic hiatus. Musculoskeletal and soft tissues: Soft tissues are unremarkable. Lumbar spondylosis.No aggressive bon e lesions. No compression fracture. ABDOMEN AND PELVIS IMPRESSION: 1. Bilateral renal cortical hypoenhancing areas likely represent pyel onephritis. 2. Severe atherosclerosis with 50% focal narrowing of the aorta at the diaphragmatic hiatus. Electronically signed by: Trever Jerome MD 11/23/2020 11:56 PM CDT Due to temporary technical issues with the PACS/Fluency reporting system, reports are being signed by the in house radiologists without review as a courtesy to insure prompt reporting. The interpreting radiologist is fully responsible for the content of the report.
[2020-11-24] MEDS ORDERED: HYDROCODONE/APAP 7.5/325 MG TAB PO PRN (12:35)
[2020-11-24] MEDS ORDERED: TRAMADOL HCL 50 MG TAB PO PRN (12:35)
--- NOTE | 2020-11-24 16:55 | EKG ---
Test Date: 2020-11-23 Test Time: 21:56:16 Hand Chain Maker: ARTUR MEASUREMENT RESULTS: Intervals: Rate: 102 KS: 164 QRSD: 110 QT: 386 QTc: 503 Golden: P: 74 KS: 164 QRS: 75 T: 62 INTERPRETIVE STATEMENTS: Sinus tachycardia Incomplete right bundle branch block Borderline ECG Compared to ECG 08/29/2012 06:41:37 Incomplete right bundle-branch block now present Sinus rhythm no longer present Left-axis deviation no longer present Electronically Signed On 11-24-20 16:53:35 CDT by Shane French
[2020-11-25] MEDS: NA CHLORIDE 0.9% 1,000 ML IV SCH (00:31)
[2020-11-25 03:24] LABS: Absolute Lymphocytes (CBC) 2.4 K/uL (0.7-4.9); Basophils % 0.6 % (0-1.3); Hematocrit 28.9 % (36.0-45.0); Lymphocytes % 18.5 % (15.3-44.8); MPV 8.5 fL (7.6-11.3); RBC Red Blood Cell Count 3.31 M/uL (3.86-4.86)
[2020-11-25 03:35] VITALS: O2SAT 95
[2020-11-25 03:44] LABS: ALT/SGPT 40 U/L (12-78); AST/SGOT 18 U/L (15-37); Alkaline Phosphatase 197 U/L (45-117); BUN Blood Urea Nitrogen 9 mg/dL (7-18); Bicarbonate 31 mmol/L (21-32); Bilirubin Total 0.4 mg/dL (0.2-1.0); Glucose Level 102 mg/dL (74-106); Magnesium 1.9 mg/dL (1.8-2.4); Potassium 3.2 mmol/L (3.5-5.1); Protein, Total 6.7 g/dL (6.4-8.2); Sodium Level 142 mmol/L (136-145)
[2020-11-25 04:09] LABS: Ferritin 486.6 ng/mL (8-388)
--- NOTE | 2020-11-25 06:26 | P.PN ---
Subjective Date of Service: 11/25/20 Primary Care Provider: Dr. Fernandes Chief Complaint: Bilateral pyelonephritis, hypokalemia Subjective: Improving, Doing well Physical Examination - Vital Signs Temperature: 97.3 F Blood Pressure: 135/82 Pulse: 100 Respirations: 19 Pulse Ox (%): 96 Assessment & Plan Discharge Plan: Home Physician Review Additional Text: COVID: negative CT Scan: TECHNIQUE: CT images through the chest, abdomen, and pelvis following IV contrast. Multiplanar reformats. Automated exposure control was utilized on this examination as a dose lowering technique. CT CHEST FINDINGS: Heart and mediastinum: Heart size is normal. Small pericardial effusion. Severe multivessel calcified and soft atherosclerosis. Mediastinal lymph nodes are increased in number but not in size and are favored to be reactive. Thyroid gland: Visualized portions are normal. Lungs: Moderate emphysema. Numerous small bilateral pulmonary nodules measure up to 4 mm in the left upper lobe (reference nodule series 401 image 26, left lower lobe). Airways: No filling defects. No bronchiectasis. Pleura: No pneumothorax. No significant pleural effusion. Musculoskeletal and soft tissues: Breast implants are noted. CHEST IMPRESSION: 1. Numerous bilateral small pulmonary nodules are likely infectious or inflammatory. If patient is low risk for malignancy, no routine follow-up imaging is recommended; if patient is high risk for malignancy, a non- contrast Chest CT at 12 months is optional. If performed and the nodules are stable at 12 months, no further follow-up is recommended. 2. Small pericardial effusion. 3. Severe atherosclerosis. 4. Moderate emphysema. 5. Reactive appearing mediastinal lymph nodes. CT ABDOMEN & PELVIS FINDINGS: Liver: A 1.5 cm arterially enhancing lesion is noted in the lateral right liver, likely representing a perfusion anomaly or hemangioma. Gallbladder and biliary: Normal gallbladder. Unremarkable biliary tree. Pancreas: Normal. Spleen: Normal. Kidneys and adrenal glands: Normal adrenal glands. Bilateral renal cysts are present. Areas of cortical hypoenhancement are present bilaterally. Left ureteral wall enhancement is noted. Stomach and Small Bowel: The stomach and small bowel are normal. Urinary bladder: Normal. Uterus and Adnexa: Hysterectomy. Colon and Appendix: The colon is unremarkable. No evidence of appendicitis. Peritoneal cavity: No ascites or free air. Retroperitoneum and lymph nodes: Retroperitoneal lymph nodes are increased in number but not in size and are likely reactive. Vascular: Severe multivessel calcified and soft atherosclerosis with focal 50% narrowing of the aorta on series 501 image 20 at the diaphragmatic hiatus. Musculoskeletal and soft tissues: Soft tissues are unremarkable. Lumbar spon dylosis.No aggressive bone lesions. No compression fracture. ABDOMEN AND PELVIS IMPRESSION: 1. Bilateral renal cortical hypoenhancing areas likely represent pyelonephritis. 2. Severe atherosclerosis with 50% focal narrowing of the aorta at the diaphragmatic hiatus. CXR: COMPARISON: August 2012 TECHNIQUE: AP portable chest image was obtained 11/23/2020 9:15 pm . FINDINGS: No peripheral mass or consolidation. Interstitial pattern is similar to comparison when adjusting for the differences in technology and technique between the 8 year interval. No failure or volume overload. Heart and vasculature are normal. No measurable pleural effusion and no pneumothorax. No acute bony abnormality seen. No acute aortic findings suspected. IMPRESSION: No acute cardiopulmonary process. No significant change from comparison study. ECHO: MEASUREMENTS (cm) DIASTOLIC (NORMALS) SYSTOLIC (NORMALS) IVSd 1.0 (0.6-1.2) LA Diam 3.4 (1.9-4.0) LVEF 59% LVIDd 3.8 (3.5-5.7) LVIDs 2.6 (2.0-3.5) %FS 31% LVPWd 0.9 (0.6-1.2) Ao Diam 2.4 (2.0-3.7) 2 DIMENSIONAL ASSESSMENT: RIGHT ATRIUM: NORMAL LEFT ATRIUM: NORMAL RIGHT VENTRICLE: NORMAL LEFT VENTRICLE: NORMAL TRICUSPID VALVE: NORMAL MITRAL VALVE: NORMAL PULMONIC VALVE: NORMAL AORTIC VALVE: NORMAL PERICARDIAL EFFUSION: TRACE AORTIC ROOT: NORMAL LEFT VENTRICULAR WALL MOTION: NORMAL DOPPLER/COLOR FLOW: NORMAL COMMENTS: TRACE PERICARDIAL EFFUSION. NORMAL LEFT VENTRICULAR SIZE AND FUNCTION. Physical exam: General: Alert, In no apparent distress, Oriented x3 HEENT: Atraumatic, PERRLA, Mucous membr. moist/pink, EOMI, Sclerae nonicteric Neck: Supple, 2+ carotid pulse no bruit, No LAD, Without JVD or thyroid abnormality Respiratory: Clear to auscultation bilaterally, Normal air movement Cardiovascular: Regular rate/rhythm, Normal S1 S2 Capillary refill: <2 Seconds Gastrointestinal: Normal bowel sounds, No tenderness Musculoskeletal: No tenderness Integumentary: No rashes Neurological: Normal speech, Normal strength at 5/5 x4 extr, Normal tone, Normal affect Impression: Bilateral pyelonephritis Hypokalemia CAD Hypertension Hyperlipidemia CT scan showing multiple small pulmonary nodules, moderate emphysema, reactive mediastinal lymph nodes, with possible small pericardial effusion Anemia likely dilutional Plan: Bilateral pyelonephritis: Patient improved and doing well. She is currently on Cipro IV. Urine culture pending. Blood culture negative. She is without pain. She is wanting to go home today. We will plan for discharge today. Hypokalemia: Electrolyte protocol in place. CAD: Need to obtain and restart home medication. Hypertension: Blood pressure stable off medication at this time. Obtain and verify home medication. Hyperlipidemia: Obtain and verify home medication. CT scan showing multiple small pulmonary nodules, moderate emphysema, reactive mediastinal lymph nodes, with possible small pericardial effusion: Will check echocardiogram to further evaluate. Plenty nodules can be followed up as an outpatient with pulmonology with repeat CT scan. Anemia likely dilutional: We will start iron supplementation at discharge DVT PPX: Lovenox Code status: Full Discharge Plan: Home Time Spent Managing Pts Care (In Minutes): 55
--- NOTE | 2020-11-25 08:21 | ECHO ---
HEIGHT: 5 ft 2 in WEIGHT: 144 lb 15.968 oz DATE OF STUDY: 11/24/[address]: Elmer Harris DO 2-DIMENSIONAL: YES M.MODE: YES DOPPLER: YES COLOR FLOW: YES TDS: NO PORTABLE: NO DEFINITY: NO BUBBLE STUDY: NO DIAGNOSIS: PERICARDIAL EFFUSION CARDIAC HISTORY: CATHERIZATION: NO SURGERY: NO PROSTHETIC VALVE: NO PACEMAKER: NO MEASUREMENTS (cm) DIASTOLIC (NORMALS) SYSTOLIC (NORMALS) IVSd 1.0 (0.6-1.2) LA Diam 3.4 (1.9-4.0) LVEF 59% LVIDd 3.8 (3.5-5.7) LVIDs 2.6 (2.0-3.5) %FS 31% LVPWd 0.9 (0.6-1.2) Ao Diam 2.4 (2.0-3.7) 2 DIMENSIONAL ASSESSMENT: RIGHT ATRIUM: NORMAL LEFT ATRIUM: NORMAL RIGHT VENTRICLE: NORMAL LEFT VENTRICLE: NORMAL TRICUSPID VALVE: NORMAL MITRAL VALVE: NORMAL PULMONIC VALVE: NORMAL AORTIC VALVE: NORMAL PERICARDIAL EFFUSION: TRACE AORTIC ROOT: NORMAL LEFT VENTRICULAR WALL MOTION: NORMAL DOPPLER/COLOR FLOW: NORMAL COMMENTS: TRACE PERICARDIAL EFFUSION. NORMAL LEFT VENTRICULAR SIZE AND FUNCTION. TECHNOLOGIST: Beth YI
[2020-11-25] MEDS ORDERED: NA CHLORIDE 0.9% 1,000 ML ONE (08:48)
[2020-11-25] MEDS: CIPROFLOXACIN 400mg IV 400 MG/200 ML BAG IV SCH (09:00)
[2020-11-25] MEDS: ENOXAPARIN 40 MG/0.4 ML SQ SCH (09:00)
[2020-11-25] MEDS ORDERED: THIAMINE HCL 100 MG TABLET PO SCH (09:00)
[2020-11-25] MEDS ORDERED: FOLIC ACID 1 MG TABLET PO SCH (09:00)
[2020-11-25] MEDS ORDERED: POTASSIUM CL SA 10 MEQ TAB PO ONE ×2 (09:00→09:41)
[2020-11-25] MEDS ORDERED: THIAMINE HCL 100 MG TABLET ONE (09:41)
[2020-11-25] MEDS ORDERED: ENOXAPARIN 40 MG/0.4 ML SQ ONE (09:41)
[2020-11-25] MEDS ORDERED: FOLIC ACID 1 MG TABLET ONE (09:41)
[2020-11-25] MEDS ORDERED: CIPROFLOXACIN 400mg IV 400 MG/200 ML BAG IV ONE (09:42)
--- NOTE | 2020-11-25 10:57 | P.DS ---
Admission Date: 11/24/20 Discharge Date: 11/25/20 Primary Care Provider: Dr. Fernandes Disposition: ROUTINE DISCHARGE Discharge Condition: GOOD Reason for Admission: Bilateral pyelonephritis, hypokalemia Consultations: none Procedures: COVID: negative CT Scan: TECHNIQUE: CT images through the chest, abdomen, and pelvis following IV c ontrast. Multiplanar reformats. Automated exposure control was utilized on this examination as a dose lowering technique. CT CHEST FINDINGS: Heart and mediastinum: Heart size is normal. Small bette cardial effusion. Severe multivessel calcified and soft atherosclerosis. Mediastinal lymph nodes are increased in number but not in size and are favored to be reactive. Thyroid gland: Visualized portions are normal. Lungs: Moderate emphysema. Numerous small bilateral pulmonary nodules measure up to 4 mm in the left upper lobe (reference nodule series 401 image 26, left lower lobe). Airways: No filling defects. No bronchiectasis. Pleura: No pneumothorax. No significant pleural effusion. Musculoskeletal and soft tissues: Breast implants are noted. CHEST IMPRESSION: 1. Numerous bilateral small pulmonary nodules are likely infectious or inflammatory. If patient is low risk for malignancy, no routine follow-up imaging is recommended; if patient is high risk for malignancy, a non- contrast Chest CT at 12 months is optional. If performed and the nodules are stable at 12 months, no further follow-up is recommended. 2. Small pericardial effusion. 3. Severe atherosclerosis. 4. Moderate emphysema. 5. Reactive appearing mediastinal lymph nodes. CT ABDOMEN & PELVIS FINDINGS: Liver: A 1.5 cm arterially enhancing lesion is noted in the lateral right liver, likely representing a perfusion anomaly or hemangioma. Gallbladder and biliary: Normal gallbladder. Unremarkable biliary tree. Pancreas: Normal. Spleen: Normal. Kidneys and adrenal glands: Normal adrenal glands. Bilateral renal cysts are present. Areas of cortical hypoenhancement are present bilaterally. Left ureteral wall enhancement is noted. Stomach and Small Bowel: The stomach and small bowel are normal. Urinary bladder: Normal. Uterus and Adnexa: Hysterectomy. Colon and Appendix: The colon is unremarkable. No evidence of appendicitis. Peritoneal cavity: No ascites or free air. Retroperitoneum and lymph nodes: Retroperitoneal lymph nodes are increased in number but not in size and are likely reactive. Vascular: Severe multivessel calcified and soft atherosclerosis with focal 50% narrowing of the aorta on series 501 image 20 at the diaphragmatic hiatus. Musculoskeletal and soft tissues: Soft tissues are unremarkable. Lumbar spondylosis.No aggressive bone lesions. No compression fracture. ABDOMEN AND PELVIS IMPRESSION: 1. Bilateral renal cortical hypoenhancing areas likely represent pyelonephritis. 2. Severe atherosclerosis with 50% focal narrowing of the aorta at the diaphragmatic hiatus. CXR: COMPARISON: August 2012 TECHNIQUE: AP portable chest image was obtained 11/23/2020 9:15 pm . FINDINGS: No peripheral mass or consolidation. Interstitial pattern is similar to comparison when adjusting for the differences in technology and technique between the 8 year interval. No failure or volume overload. Heart and vasculature are normal. No measurable pleural effusion and no pneumothorax. No acute bony abnormality seen. No acute aortic findings suspected. IMPRESSION: No acute cardiopulmonary process. No significant change from comparison study. ECHO: MEASUREMENTS (cm) DIASTOLIC (NORMALS) SYSTOLIC (NORMALS) IVSd 1.0 (0.6-1.2) LA Diam 3.4 (1.9-4.0) LVEF 59% LVIDd 3.8 (3.5-5.7) LVIDs 2.6 (2.0-3.5) %FS 31% LVPWd 0.9 (0.6-1.2) Ao Diam 2.4 (2.0-3.7) 2 DIMENSIONAL ASSESSMENT: RIGHT ATRIUM: NORMAL LEFT ATRIUM: NORMAL RIGHT VENTRICLE: NORMAL LEFT VENTRICLE: NORMAL TRICUSPID VALVE: NORMAL MITRAL VALVE: NORMAL PULMONIC VALVE: NORMAL AORTIC VALVE: NORMAL PERICARDIAL EFFUSION: TRACE AORTIC ROOT: NORMAL LEFT VENTRICULAR WALL MOTION: NORMAL DOPPLER/COLOR FLOW: NORMAL COMMENTS: TRACE PERICARDIAL EFFUSION. NORMAL LEFT VENTRICULAR SIZE AND FUNCTION. Medical problem list: Bilateral pyelonephritis Hypokalemia CAD Hypertension Hyperlipidemia CT scan showing multiple small pulmonary nodules, moderate emphysema, reactive mediastinal lymph nodes, with possible small pericardial effusion Anemia likely dilutional with iron deficiency History of tobacco abuse Brief History of Present Illness: 60-year-old female with history of CAD, hyperlipidemia, hypertension presents emergency department for malaise, fatigue over the course of last 2 weeks. Patient was evaluated in the emergency department labs were significant for white blood cell count 16.7 hemoglobin 1.5 adequate 33.5 sodium 135 potassium 2.8 chloride 95 alk phos 292 BNP 793 urinalysis with positive nitrite 2+ leukoesterase, microscopic with 20-50 bacteria greater than [address] abdomen pelvis with bilateral pyelonephritis. Patient was admitted for treatment. Hospital Course: Patient presented with fatigue secondary to bilateral pyelonephritis. Patient was admitted for treatment. Patient received IV fluids and antibiotic therapy. Patient has improved. Blood cultures negative. Urine culture pending. White count improved. Patient has significantly improved. Patient desires to leave. With improved status patient will be discharged home with Cipro 500 mg 1 pill twice daily for 10 days. Recommend follow-up with PCP within 1 week to follow- up his hospitalization. PCP will need to follow-up on urine culture results. These will result tomorrow. Education on pyelonephritis provided. Recommend to recheck urine culture in 1 week to monitor resolution. UTI prevention provided. Patient with history of CAD, hypertension, hyperlipidemia. Patient takes valsartan and propanolol. Blood pressure stable off medication at this time. Recommend to hold medication at this time. Recommend to monitor blood pressure daily. Recommend to maintain blood pressure less than 130/80. If blood pressure remains above 140/90 then she may restart her medication with the help of her PCP. Recommend follow-up with her PCP within 1 week to further monitor and address. CT scan showed multiple small pulmonary nodules, moderate emphysema, reactive mediastinal lymph nodes with small pericardial effusion. Echocardiogram shows trace pericardial effusion. Ejection fraction within normal range. Patient likely with underlying COPD. Recommend follow-up with PCP to further evaluate and monitor. Patient may benefit with pulmonology evaluation as an outpatient for pulmonary function test to further evaluate. Patient will also benefit with repeat CT scan in the future to monitor stability of pulmonary nodules. Recommend recheck echocardiogram within 1 month to monitor the pericardial effusion. Patient may also benefit evaluation by cardiology as an outpatient due to her chronic conditions including CAD, hypertension and hyperlipidemia. Patient with anemia. This is likely dilutional. Iron deficiency noted. Patient will continue with iron supplementation daily. Recommend to recheck labCBC in 1 to 2 weeks to monitor her progress. This can be done with the help of her PCP. Vital Signs/Physical Exam: Temp Pulse Resp BP Pulse Ox 97.3 F 100 H 19 135/82 96 11/25/20 10:56 11/25/20 10:56 11/25/20 10:56 11/25/20 10:56 11/25/20 10:56 General: Alert, In no apparent distress, Oriented x3, Cooperative HEENT: Atraumatic Neck: Supple Respiratory: Clear to auscultation bilaterally, Normal air movement Cardiovascular: Normal pulses, Regular rate/rhythm Gastrointestinal: Normal bowel sounds, No ascites, No tenderness, No masses, No rebound, No guarding Musculoskeletal: No tenderness, No warmth Integumentary: No tenderness/swelling Neurological: Normal speech, Normal strength at 5/5 x4 extr, Normal tone Laboratory Data at Discharge: WBC 12.80 K/uL (4.3-10.9) H 11/25/20 02:48 Hgb 9.8 g/dL (12.0-15.0) L 11/25/20 02:48 Hct 28.9 % (36.0-45.0) L 11/25/20 02:48 Plt Count 460 K/uL (152-406) H 11/25/20 02:48 PT 14.7 SECONDS (9.5-12.5) H 11/23/20 21:51 INR 1.28 11/23/20 21:51 Sodium 142 mmol/L (136-145) 11/25/20 02:48 Potassium 3.2 mmol/L (3.5-5.1) L 11/25/20 02:48 BUN 9 mg/dL (7-18) 11/25/20 02:48 Creatinine 0.47 mg/dL (0.55-1.3) L 11/25/20 02:48 Glucose 102 mg/dL (74-106) 11/25/20 02:48 Phosphorus Cancelled 11/23/20 22:27 Magnesium 1.9 mg/dL (1.8-2.4) 11/25/20 02:48 Total Bilirubin 0.4 mg/dL (0.2-1.0) 11/25/20 02:48 AST 18 U/L (15-37) 11/25/20 02:48 ALT 40 U/L (12-78) 11/25/20 02:48 Alkaline Phosphatase 197 U/L (45-117) H 11/25/20 02:48 Triglycerides 104 mg/dL (<150) 11/24/20 07:34 Cholesterol 122 mg/dL (<200) 11/24/20 07:34 HDL Cholesterol 14 mg/dL (40-60) L 11/24/20 07:34 Cholesterol/HDL Ratio 8.71 11/24/20 07:34 Lipase 110 U/L (73-393) 11/23/20 21:20 Home Medications: Ciprofloxacin HCl [Cipro 500 MG Tablet] 500 mg PO BID #20 tab 11/25/20 Ferrous Sulfate [Ferrous Sulfate*] 325 mg PO DAILY #30 tab 11/25/20 New Medications: Ciprofloxacin HCl [Cipro 500 MG Tablet] 500 mg PO BID #20 tab Ferrous Sulfate [Ferrous Sulfate*] 325 mg PO DAILY #30 tab Physician Discharge Instructions: Patient presented with fatigue secondary to bilateral pyelonephritis. Patient was admitted for treatment. Patient received IV fluids and antibiotic therapy. Patient has improved. Blood cultures negative. Urine culture pending. White count improved. Patient has significantly improved. Patient desires to leave. With improved status patient will be discharged home with Cipro 500 mg 1 pill twice daily for 10 days. Recommend follow-up with PCP within 1 week to follow- up his hospitalization. PCP will need to follow-up on urine culture results. These will result tomorrow. Education on pyelonephritis provided. Recommend to recheck urine culture in 1 week to monitor resolution. UTI prevention provided. Patient with history of CAD, hypertension, hyperlipidemia. Patient takes valsartan and propanolol. Blood pressure stable off medication at this time. Recommend to hold medication at this time. Recommend to monitor blood pressure daily. Recommend to maintain blood pressure less than 130/80. If blood pressure remains above 140/90 then she may restart her medication with the help of her PCP. Recommend follow-up with her PCP within 1 week to further monitor and address. CT scan showed multiple small pulmonary nodules, moderate emphysema, reactive mediastinal lymph nodes with small pericardial effusion. Echocardiogram shows trace pericardial effusion. Ejection fraction within normal range. Patient likely with underlying COPD. Recommend follow-up with PCP to further evaluate and monitor. Patient may benefit with pulmonology evaluation as an outpatient for pulmonary function test to further evaluate. Patient will also benefit with repeat CT scan in the future to monitor stability of pulmonary nodules. Recommend recheck echocardiogram within 1 month to monitor the pericardial effusion. Patient may also benefit evaluation by cardiology as an outpatient due to her chronic conditions including CAD, hypertension and hyperlipidemia. Patient with anemia. This is likely dilutional. Iron deficiency noted. Patient will continue with iron supplementation daily. Recommend to recheck labCBC in 1 to 2 weeks to monitor her progress. This can be done with the help of her PCP. Diet: AHA Activity: Ad iwona Followup: NONE,NONE [Primary Care Provider] - Time spent managing pt's care (in minutes): 55
[2020-11-25 15:03] VITALS: BP 139/65; TEMP 98.9
[2020-11-26] MEDS ORDERED: FERROUS SULFATE 325 MG TAB PO SCH (09:00)
== END 2020-11-25 12:45 | disposition home or self-care (01) | DRG 690 ==
LOC: ER 16:18 → ERHOLD 11-24 00:55
PROVIDERS: ADMIT Family Medicine; ATTEND Family Medicine
DX: N10 Acute pyelonephritis (principal); I31.3 Pericardial effusion (noninflammatory); E87.6 Hypokalemia; I25.10 Atherosclerotic heart disease of native coronary artery without angina pectoris; E78.5 Hyperlipidemia, unspecified; I10 Essential (primary) hypertension; R91.8 Other nonspecific abnormal finding of lung field; J43.9 Emphysema, unspecified; D64.9 Anemia, unspecified; Z20.822 Contact with and (suspected) exposure to COVID-19
CPT/HCPCS: 36415; 71045; 71260; 74177; 80048; 80053; 80061; 80076; 81003; 81015; 82607; 82728; 83540; 83690; 83735; 83880; 84100; 84439; 84443; 84466; 84484; 85025; 85610; 87040; 87077; 87086; 87088; 87186; 93005; 93306; 94010; 96361; 96374; 96375; 99284; J0696; J0744; J1650; J3480; J7030; Q9967; U0003

== ENCOUNTER 2021-02-06 15:55 | Emergency (ER) | payer SELFPAY ==
[2021-02-06 16:35] LABS: Basophils % 1.3 % (0-1.3); Hematocrit 42.8 % (36.0-45.0); Lymphocytes % 31.8 % (15.3-44.8); MPV 9.2 fL (7.6-11.3); RBC Red Blood Cell Count 5.12 M/uL (3.86-4.86)
[2021-02-06 16:36] LABS: Protime INR 1.01
--- NOTE | 2021-02-06 16:47 | RAD REPORT ---
EXAM DESCRIPTION: CT - Stone Protocol - 02/06/2021 4:31 pm CLINICAL HISTORY: Abdominal pain. COMPARISON: November 2020 TECHNIQUE: Computed axial tomography of the abdomen pelvis was obtained without oral or IV contrast. Lack of IV and oral contrast limits evaluation of solid organs, bowel, and vessels. Coronal reformat marcel images were obtained and reviewed. All CT scans are performed using dose optimization technique as appropriate and may include automated exposure control or mA/KV adjustment according to patient size. FINDINGS: A renal calculus is not seen. An ureteral calculus is not noted. A bladder calculus is not present. Bilateral renal cysts. The liver, spleen, pancreas and adrenals appear grossly normal There is no evidence of diverticulitis. Small umbilical hernia contains fat. Hysterectomy. No adnexal mass. IMPRESSION: Negative for a genitourinary calculus
--- NOTE | 2021-02-06 16:48 | RAD REPORT ---
EXAM DESCRIPTION: Jason Single View02/06/2021 4:12 pm CLINICAL HISTORY: Chest pain COMPARISON: November 2020 FINDINGS: The lungs appear clear of acute infiltrate. The heart is borderline enlarged IMPRESSION: No acute abnormalities displayed
[2021-02-06 16:51] LABS: ALT/SGPT 27 U/L (12-78); AST/SGOT 18 U/L (15-37); Albumin 3.7 g/dL (3.4-5.0); Alkaline Phosphatase 110 U/L (45-117); BUN Blood Urea Nitrogen 10 mg/dL (7-18); Bicarbonate 26 mmol/L (21-32); Bilirubin Direct 0.1 mg/dL (0-0.2); Bilirubin Total 0.4 mg/dL (0.2-1.0); Glucose Level 112 mg/dL (74-106); Lipase 69 U/L (73-393); Magnesium 2.3 mg/dL (1.8-2.4); NT PRO-BNP 449 pg/mL (<125); Potassium 3.6 mmol/L (3.5-5.1); Protein, Total 7.7 g/dL (6.4-8.2); Sodium Level 142 mmol/L (136-145); Troponin (Emerg Dept Use Only) < 0.02 ng/mL (0.0-0.045)
[2021-02-06] MEDS ORDERED: HYDROMORPHONE HCL 1 MG/ML INJ ONE ×2 (17:06→19:17)
[2021-02-06] MEDS ORDERED: ONDANSETRON 4 MG/2 ML VIAL ONE (17:06)
[2021-02-06] MEDS ORDERED: NA CHLORIDE 0.9% 1,000 ML ONE (17:06)
[2021-02-06 17:25] LABS: Urine Blood Negative (Negative); Urine Glucose Negative (Negative); Urine Protein Negative (Negative)
[2021-02-06 17:47] LABS: Urine Bacteria <20 /HPF (<20); Urine RBC <5 /HPF (NONE SEEN)
--- NOTE | 2021-02-06 18:25 | EDPHYS ---
Physician Documentation [facility] Name: Idalmis Charles Age: 60 yrs Sex: Female : 1960 Arrival Date: 02/06/2021 Time: 15:57 Bed 8 Private MD: Christian Fernandes T ED Physician Bladimir Sandoval HPI: 02/06 16:17 This 60 yrs old Female presents to ER via EMS with complaints of Breathing ma2 Difficulty, Flank Pain. 16:17 Onset: The symptoms/episode began/occurred gradually, 1 day(s) ago. Associated signs ma2 and symptoms: Pertinent negatives: diaphoresis, fever, hemoptysis, nausea. Severity of symptoms: At their worst the symptoms were moderate in the emergency department the symptoms are unchanged. The patient has not experienced similar symptoms in the past. Historical: - Allergies: 16:06 meperidine HCl; ss - Immunization history:: Client reports receiving the 2nd dose of the Covid vaccine. - Social history:: Smoking status: Patient denies any tobacco usage or history of. Patient/guardian denies using alcohol, street drugs, The patient lives with family. - Family history:: not pertinent. ROS: 16:17 Constitutional: Negative for fever, chills, and weight loss. ma2 16:17 All other systems are negative. Exam: 16:17 Constitutional: This is a well developed, well nourished patient who is awake, alert, ma2 and in no acute distress. ENT: Nares patent. No nasal discharge, no septal abnormalities noted. Tympanic membranes are normal and external auditory canals are clear. Oropharynx with no redness, swelling, or masses, exudates, or evidence of obstruction, uvula midline. Mucous membranes moist. Neck: Trachea midline, no thyromegaly or masses palpated, and no cervical lymphadenopathy. Supple, full range of motion without nuchal rigidity, or vertebral point tenderness. No Meningismus. Chest/axilla: Normal chest wall appearance and motion. Nontender with no deformity. No lesions are appreciated. Cardiovascular: Regular rate and rhythm with a normal S1 and S2. No gallops, murmurs, or rubs. Normal PMI, no JVD. No pulse deficits. Respiratory: Lungs have equal breath sounds bilaterally, clear to auscultation and percussion. No rales, rhonchi or wheezes noted. No increased work of breathing, no retractions or nasal flaring. Abdomen/GI: Soft, non-tender, with normal bowel sounds. No distension or tympany. No guarding or rebound. No evidence of tenderness throughout. Back: No spinal tenderness. No costovertebral tenderness. Full range of motion. MS/ Extremity: Pulses equal, no cyanosis. Neurovascular intact. Full, normal range of motion. Neuro: Awake and alert, GCS 15, oriented to person, place, time, and situation. Cranial nerves II-XII grossly intact. Motor strength 5/5 in all extremities. Sensory grossly intact. Cerebellar exam normal. Normal gait. Vital Signs: 16:03 BP 162 / 99; Pulse 92; Resp 18 S; Temp 98.7(TE); Pulse Ox 100% on R/A; Weight 68.04 kg; ss Height 5 ft. 2 in. (157.48 cm); Pain 10/; 17:03 BP 151 / 91; Pulse 80; Resp 16; Pulse Ox 95% ; bp 17:38 BP 119 / 84; Pulse 81; Pulse Ox 95% on R/A; ap3 18:34 BP 130 / 88; Pulse 75; Resp 16; Temp 98.5; Pulse Ox 96% ; bp 16:03 Body Mass Index 27.44 (68.04 kg, 157.48 cm) MDM: 15:57 Patient medically screened. ma2 16:17 Differential diagnosis: Anxiety Reaction uti, right flank pain, renal colic vs ma2 pyelonephritis. 18:24 Data reviewed: vital signs, nurses notes, EMS record. Counseling: I had a detailed [facility] discussion with the patient and/or guardian regarding: the historical points, exam findings, and any diagnostic results supporting the discharge/admit diagnosis, the presence of at least one elevated blood pressure reading (>120/80) during this emergency department visit, the need for outpatient follow up. Response to treatment: the patient's symptoms have markedly improved after treatment. 02/06 15:59 Order name: Basic Metabolic Panel wv2 02/06 15:59 Order name: CBC with Diff ma2 02/06 15:59 Order name: LFT's; Complete Time: 16:54 ma2 02/06 15:59 Order name: Magnesium; Complete Time: 16:54 ma2 02/06 15:59 Order name: NT PRO-BNP; Complete Time: 16:54 ma2 02/06 15:59 Order name: PT-INR; Complete Time: 17:18 ma2 02/06 15:59 Order name: Troponin (emerg Dept Use Only); Complete Time: 16:54 ma2 02/06 15:59 Order name: XRAY Chest (1 view); Complete Time: 16:54 ma2 02/06 15:59 Order name: Lipase; Complete Time: 16:54 ma2 02/06 15:59 Order name: Urine Microscopic Only; Complete Time: 17:58 ma2 02/06 15:59 Order name: CT Stone Protocol; Complete Time: 16:54 ma2 02/06 15:59 Order name: Basic Metabolic Panel; Complete Time: 16:54 EDMS 02/06 15:59 Order name: CBC with Automated Diff; Complete Time: 17:18 EDMS 02/06 17:25 Order name: Urine Dipstick-Ancillary EDMS 02/06 15:59 Order name: EKG; Complete Time: 16:00 ma2 02/06 15:59 Order name: Cardiac monitoring; Complete Time: 16:12 ma2 02/06 15:59 Order name: EKG - Nurse/Tech; Complete Time: 16:12 ma2 02/06 15:59 Order name: IV Saline Lock; Complete Time: 16:11 ma2 02/06 15:59 Order name: Labs collected and sent; Complete Time: 16:11 ma2 02/06 15:59 Order name: O2 Per Protocol; Complete Time: 16:11 ma2 02/06 15:59 Order name: O2 Sat Monitoring; Complete Time: 16:11 ma2 02/06 15:59 Order name: NPO; Complete Time: 16:03 ma2 02/06 15:59 Order name: Urine Dipstick-Ancillary (obtain specimen); Complete Time: 17:34 ma2 02/06 17:21 Order name: US Abdomen Limited ma2 Administered Medications: 16:14 Drug: Dilaudid (HYDROmorphone) 1 mg Route: IVP; Site: left antecubital; ap3 18:10 Follow up: Response: Pain is decreased bp 16:14 Drug: NS 0.9% 1000 ml Route: IV; Rate: 1000 ml; Site: left antecubital; ap3 18:10 Follow up: IV Status: Completed infusion; IV Intake: 1000ml bp 16:15 Drug: Zofran (Ondansetron) 4 mg Route: IVP; Site: left antecubital; ap3 18:10 Follow up: Response: No adverse reaction bp 18:21 Drug: Dilaudid (HYDROmorphone) 1 mg Route: IVP; Site: left antecubital; bp 18:36 Follow up: Response: No adverse reaction; Pain is decreased bp Disposition Summary: 02/06/21 18:25 Discharge Ordered Location: Home ma2 Condition: Stable ma2 Diagnosis - Low back pain - Right flank ma2 Followup: ma2 - With: Christian Fernandes MD - When: Tomorrow - Reason: Continuance of care Discharge Instructions: - Discharge Summary Sheet ma2 - Flank Pain, Adult, [id number] ma2 Forms: - Medication Reconciliation Form ma2 - Thank You Letter ma2 - Antibiotic Education ma2 - Prescription Opioid Use ma2 Prescriptions: - Diclofenac Sodium 75 mg Oral Tablet Sustained Release - take 1 tablet by ORAL route 2 times per day; 30 tablet; Refills: 0, Product ma2 Selection Permitted Signatures: Dispatcher [employer] Citlali Fisher RN RN ss Scar Anderson RN RN bp Bladimir Sandoval MD MD ma2 Suri Parkinson RN RN ap3
--- NOTE | 2021-02-06 18:25 | ER ---
Nurse's Notes [facility] Name: Idalmis Charles Age: 60 yrs Sex: Female : 1960 Arrival Date: 02/06/2021 Time: 15:57 Bed 8 Private MD: Christian Fernandes T Diagnosis: Low back pain-Right flank Presentation: 02/06 16:03 Chief complaint: Patient states: R low/ mid back pain that at times radiates towards R ss side of abd since 01/25. Pt reports that today she began to have severe chest pain, "like somebody is putting their fist in it.". Coronavirus screen: Client denies travel out of the [place] in the last 14 days. Ebola Screen: Patient denies exposure to infectious person. Patient denies travel to an Ebola-affected area in the 21 days before illness onset. Initial Sepsis Screen: Does the patient meet any 2 criteria? No. Patient's initial sepsis screen is negative. Does the patient have a suspected source of infection? No. Patient's initial sepsis screen is negative. Risk Assessment: Do you want to hurt yourself or someone else? Patient reports no desire to harm self or others. Onset of symptoms was January 25, 2021. Care prior to arrival: Medication(s) given: ASA, 81 mg, x 4, IV initiated. 20 GA. 16:03 Method Of Arrival: EMS: [facility] 16:03 Acuity: BAR 2 ss Triage Assessment: 16:10 General: Appears distressed, uncomfortable, Behavior is cooperative, appropriate for bp age, anxious. Pain: Complains of pain in back and chest. EENT: No deficits noted. Neuro: Level of Consciousness is alert, obeys commands. Cardiovascular: No deficits noted. Respiratory: Reports shortness of breath Onset: The symptoms/episode began/occurred 2 WK, the patient has mild shortness of breath. GI: No signs and/or symptoms were reported involving the gastrointestinal system. : No signs and/or symptoms were reported regarding the genitourinary system. Derm: No deficits noted. Musculoskeletal: No deficits noted. Historical: - Allergies: 16:06 meperidine HCl; ss - Immunization history:: Client reports receiving the 2nd dose of the Covid vaccine. - Social history:: Smoking status: Patient denies any tobacco usage or history of. Patient/guardian denies using alcohol, street drugs, The patient lives with family. - Family history:: not pertinent. Screenin:10 Abuse screen: Denies threats or abuse. Denies injuries from another. bp 16:10 Nutritional screening: No deficits noted. Tuberculosis screening: No symptoms or risk bp factors identified. Fall Risk None identified. Assessment: 16:10 General: SEE TRIAGE NOTE. bp 17:04 Reassessment: No changes from previously documented assessment. Cardiovascular: Rhythm bp is sinus rhythm. Respiratory: Airway is patent Respiratory effort is even, unlabored, Breath sounds are clear bilaterally. 18:35 Reassessment: PT D/C HOME AMBULATORY WITH FAMILY, DX WITH FLANK PAIN. bp Vital Signs: 16:03 BP 162 / 99; Pulse 92; Resp 18 S; Temp 98.7(TE); Pulse Ox 100% on R/A; Weight 68.04 kg; ss Height 5 ft. 2 in. (157.48 cm); Pain 10/10; 17:03 BP 151 / 91; Pulse 80; Resp 16; Pulse Ox 95% ; bp 17:38 BP 119 / 84; Pulse 81; Pulse Ox 95% on R/A; ap3 18:34 BP 130 / 88; Pulse 75; Resp 16; Temp 98.5; Pulse Ox 96% ; bp 16:03 Body Mass Index 27.44 (68.04 kg, 157.48 cm) ED Course: 15:57 Patient arrived in ED. am2 15:57 Christian Fernandes MD is Private Physician. am2 15:57 Bladimir Sandoval MD is Attending Physician. ma2 16:06 Triage completed. ss 16:06 Arm band placed on right wrist. ss 16:10 Scar Anderson, RN is Primary Nurse. bp 16:10 Patient has correct armband on for positive identification. Bed in low position. Call bp light in reach. Side rails up X2. 16:10 Inserted saline lock: 20 gauge in right antecubital area, using aseptic technique. bp forearm, using aseptic technique. Blood collected. 16:11 XRAY Chest (1 view) In Process Unspecified. EDMS 16:31 CT Stone Protocol In Process Unspecified. EDMS 16:39 EKG done, by ED staff, reviewed by Bladimir Sandoval MD. em1 18:10 CBC with Diff Sent. bp 18:10 Basic Metabolic Panel Sent. bp 18:14 US Abdomen Limited In Process Unspecified. EDMS 18:24 Christian Fernandes MD is Referral Physician. ma2 18:35 No provider procedures requiring assistance completed. IV discontinued, intact, bp bleeding controlled, No redness/swelling at site. Pressure dressing applied. Administered Medications: 16:14 Drug: Dilaudid (HYDROmorphone) 1 mg Route: IVP; Site: left antecubital; ap3 18:10 Follow up: Response: Pain is decreased bp 16:14 Drug: NS 0.9% 1000 ml Route: IV; Rate: 1000 ml; Site: left antecubital; ap3 18:10 Follow up: IV Status: Completed infusion; IV Intake: 1000ml bp 16:15 Drug: Zofran (Ondansetron) 4 mg Route: IVP; Site: left antecubital; ap3 18:10 Follow up: Response: No adverse reaction bp 18:21 Drug: Dilaudid (HYDROmorphone) 1 mg Route: IVP; Site: left antecubital; bp 18:36 Follow up: Response: No adverse reaction; Pain is decreased bp Intake: 18:10 IV: 1000ml; Total: 1000ml. bp Outcome: 18:25 Discharge ordered by MD. ma2 18:35 Discharged to home ambulatory, with family. bp 18:35 Condition: stable 18:35 Discharge instructions given to patient, Instructed on discharge instructions, follow up and referral plans. medication usage, Demonstrated understanding of instructions, follow-up care, medications, Prescriptions given X 1. 18:37 Patient left the ED. bp Signatures: Dispatcher [employer] EDVA John Pelletier em1 Citlali Ching RN RN ss Moreno, Amanda am2 Peltier, Brian, RN RN bp Alzahri, Mohammad, MD MD ma2 Prokisch, Amanda, RN RN ap3
--- NOTE | 2021-02-06 18:33 | RAD REPORT ---
EXAM DESCRIPTION: US - Abdomen Exam Limited - 02/06/2021 6:14 pm CLINICAL HISTORY: Abdominal pain. COMPARISON: None. FINDINGS: The gallbladder wall is not thickened. A gallstone is not seen. The biliary tree is normal caliber. IMPRESSION: Unremarkable gallbladder ultrasound.
[2021-02-06 18:46] VITALS: BP 130/88; TEMP 98.5; O2SAT 96
== END 2021-02-06 18:37 | disposition home or self-care (01) ==
LOC: ER 15:55
DX: R10.9 Unspecified abdominal pain (principal); Z88.8 Allergy status to other drugs, medicaments and biological substances
CPT/HCPCS: 36415; 71045; 74176; 76377; 76705; 80048; 80076; 81003; 81015; 83690; 83735; 83880; 84484; 85025; 85610; 93005; 96361; 96374; 96375; 99285; J1170; J2405; J7030

== ENCOUNTER 2021-02-07 20:01 | Emergency (ER) | payer SELFPAY ==
--- NOTE | 2021-02-07 22:07 | RAD REPORT ---
EXAM DESCRIPTION: CT - Chest For Pe Angio - 02/07/2021 9:45 pm CLINICAL HISTORY: Chest pain COMPARISON: November 2020 TECHNIQUE: Dynamically enhanced axial 3 mm thick images of the chest were obtained during administra tion of <100> mL Isovue 370 IV contrast. Coronal and oblique reconstruction images were generated and reviewed. Exam utilizes a protocol for optimal evaluation of pulmonary arterial tree. Maximum intensity projections 3D imaging was utilized All CT scans are performed using dose optimization technique as appropriate and may include automated exposure control or mA/KV adjustment according to patient size. FINDINGS: A pulmonary embolus is not seen. A thoracic aortic aneurysm is not noted. A pleural effusion is not seen. A pericardial effusion is not seen. Centrilobular emphysema. Several subcentimeter ground-glass opacities within the lungs have developed . Several additional tiny bilateral nodules described on the prior exam have resolved. IMPRESSION: Negative for a pulmonary embolism. COPD Multiple, bilateral subcentimeter ground-glass pulmonary nodules probably infectious or inflammatory. Followup CT chest 6 months recommended
[2021-02-07 22:12] LABS: Absolute Lymphocytes (CBC) 4.7 K/uL (0.7-4.9); Basophils % 1.4 % (0-1.3); Hematocrit 39.5 % (36.0-45.0); Lymphocytes % 36.1 % (15.3-44.8); MPV 8.8 fL (7.6-11.3); RBC Red Blood Cell Count 4.71 M/uL (3.86-4.86)
[2021-02-07 22:25] LABS: ALT/SGPT 23 U/L (12-78); AST/SGOT 22 U/L (15-37); Albumin 3.7 g/dL (3.4-5.0); Alkaline Phosphatase 103 U/L (45-117); BUN Blood Urea Nitrogen 10 mg/dL (7-18); Bicarbonate 24 mmol/L (21-32); Bilirubin Direct < 0.1 mg/dL (0-0.2); Bilirubin Total 0.3 mg/dL (0.2-1.0); Glucose Level 104 mg/dL (74-106); Magnesium 2.1 mg/dL (1.8-2.4); NT PRO-BNP 605 pg/mL (<125); Potassium 3.6 mmol/L (3.5-5.1); Protein, Total 7.4 g/dL (6.4-8.2); Sodium Level 140 mmol/L (136-145); Troponin (Emerg Dept Use Only) < 0.02 ng/mL (0.0-0.045)
--- NOTE | 2021-02-07 22:50 | ER ---
Nurse's Notes [facility] Name: Idalmis Charles Age: 60 yrs Sex: Female : 1960 Arrival Date: 02/07/2021 Time: 20:03 Bed 19 Private MD: Diagnosis: Chest pain, unspecified Presentation: 02/07 20:20 Chief complaint: Patient states: Reports ED visit yesterday for same complaint of right lp1 posterior back pain; Unable to take medication that was prescribed to her from previous ED visit; Pain has not decreased, denies any injury. Coronavirus screen: At this time, the client does not indicate any symptoms associated with coronavirus-19. Ebola Screen: No symptoms or risks identified at this time. Risk Assessment: Do you want to hurt yourself or someone else? Patient reports no desire to harm self or others. Onset of symptoms was February 07, 2021. 20:20 Method Of Arrival: Wheelchair lp1 20:20 Acuity: BAR 3 lp1 20:24 Initial Sepsis Screen: Does the patient meet any 2 criteria? No. Patient's initial lp1 sepsis screen is negative. Does the patient have a suspected source of infection? No. Patient's initial sepsis screen is negative. Triage Assessment: 20:45 General: Appears uncomfortable, Behavior is calm, cooperative. Pain: Complains of pain cc4 in back and right mid back Pain radiates to right mid back to right lower back Pain currently is 10 out of 10 on a pain scale. at worst was 10 out of 10 on a pain scale. level that patient reports is acceptable is 0 out of 10 on a pain scale. Quality of pain is described as aching, radiating, Pain began 01/25/2021. Historical: - Allergies: 20:23 meperidine HCl; lp1 - Home Meds: 20:28 aspirin 81 mg Oral TbEC 1 tab once daily [Active]; Plavix 75 mg Oral tab 1 tab once lp1 daily [Active]; metoprolol tartrate 25 mg Oral tab 1 tab 2 times per day [Active]; atorvastatin 40 mg oral tab 1 tab once daily [Active]; - PMHx: 20:28 Hypertensive disorder; Myocardial infarction; hyperlipidemia; lp1 - PSHx: 20:28 heart stents; lp1 - Immunization history:: Adult Immunizations up to date. - Social history:: Smoking status: Patient denies any tobacco usage or history of. Screenin:45 Abuse screen: Denies threats or abuse. Nutritional screening: No deficits noted. cc4 Tuberculosis screening: No symptoms or risk factors identified. Fall Risk None identified. Assessment: 20:45 General: Appears uncomfortable, Behavior is calm, cooperative. Pain: Complains of pain cc4 in back and right mid back radiates into lower right back Pain currently is 10 out of 10 on a pain scale. at worst was 10 out of 10 on a pain scale. Quality of pain is described as aching, radiating, throbbing. 20:45 Neuro: Level of Consciousness is awake, alert, obeys commands, Oriented to person, cc4 place, time, situation. Respiratory: Breath sounds are clear bilaterally. 20:45 GI: No deficits noted. Abdomen is non-distended. : Reports Treated x 1 week ago for cc4 UTI with antibiotics. EENT: No deficits noted. Eyes clear. Nares are clear. Musculoskeletal: No deficits noted. Capillary refill < 3 seconds, Range of motion: intact in all extremities, no tenderness noted of back. 22:00 Reassessment: No changes from previously documented assessment. medicated for pain as cc4 ordered(see orders). 22:05 Reassessment: c/o nausea with Dr. Pereira notified; zofran 4 mg given slow IVP as cc4 ordered; no vomiting noted. 23:00 Reassessment: Reports pain decreased to a 5 of back. cc4 Vital Signs: 20:24 BP 181 / 106; Pulse 93; Resp 20; Temp 97.7(TE); Pulse Ox 98% on R/A; Weight 68.04 kg; lp1 Height 5 ft. 2 in. (157.48 cm); Pain 10/10; 20:45 BP 159 / 108; Pulse 80; Resp 20; Temp 97.9; Pulse Ox 99% on R/A; cc4 20:58 BP 150 / 98; Pulse 79; Resp 20; Pulse Ox 98% on R/A; cc4 21:00 BP 171 / 96; Pulse 77; Resp 20; Pulse Ox 97% on R/A; cc4 21:15 BP 159 / 89; Pulse 75; Resp 20; Pulse Ox 97% on R/A; cc4 23:00 BP 122 / 81; Pulse 79; Resp 20; Pulse Ox 98% ; cc4 20:24 Body Mass Index 27.44 (68.04 kg, 157.48 cm) lp1 Vitals: 22:00 Cardiac Rhythm Assessment Regular Sinus rhythm. cc4 ED Course: 20:03 Patient arrived in ED. bp1 20:18 Arm band placed on right wrist. lp1 20:23 Triage completed. lp1 20:35 Collin Pereira MD is Attending Physician. sp3 20:45 Patient has correct armband on for positive identification. Bed in low position. Call cc4 light in reach. Side rails up X 1. 21:00 Lola Holcomb, RN is Primary Nurse. cc4 21:41 Basic Metabolic Panel Sent. cc4 21:41 CBC with Diff Sent. cc4 21:41 LFT's Sent. cc4 21:42 Magnesium Sent. cc4 21:42 NT PRO-BNP Sent. cc4 21:42 PT-INR Sent. cc4 21:42 Troponin (emerg Dept Use Only) Sent. cc4 21:42 CT Chest For PE Angio Sent. cc4 21:44 CT Chest For PE Angio In Process Unspecified. EDMS 21:46 Inserted saline lock: 20 gauge in left antecubital area, using aseptic technique. Blood ds4 collected. Missed attempt(s): 22 gauge in right wrist. antecubital area. Bleeding controlled, band aid applied, catheter tip intact. 22:02 Lab(s) recollected, by me, sent to lab. bb 22:11 Basic Metabolic Panel Sent. cc4 22:11 CBC with Diff Sent. cc4 22:11 LFT's Sent. cc4 22:11 Magnesium Sent. cc4 22:11 NT PRO-BNP Sent. cc4 22:11 PT-INR Sent. cc4 22:11 Troponin (emerg Dept Use Only) Sent. cc4 22:47 Nacho Santiago MD is Referral Physician. sp3 23:00 No provider procedures requiring assistance completed. cc4 23:00 IV discontinued, intact, bleeding controlled, No redness/swelling at site. Pressure cc4 dressing applied. Administered Medications: 22:00 Drug: Dilaudid (HYDROmorphone) 1 mg Route: IVP; Site: left antecubital; cc4 22:15 Follow up: Response: No adverse reaction; Pain is decreased cc4 22:05 Drug: Zofran (Ondansetron) 4 mg Route: IVP; Site: left antecubital; cc4 22:15 Follow up: Response: No adverse reaction; Nausea is decreased cc4 Outcome: 22:49 Discharge ordered by . guy 23:00 Discharged to home ambulatory, with friend. cc4 23:00 Condition: improved 23:00 Discharge instructions given to patient, Instructed on discharge instructions, follow up and referral plans. Demonstrated understanding of instructions, follow-up care. 23:55 Patient left the ED. bb Signatures: Dispatcher [employer] EDMS Awilda Burr RN RN bb Sophie Arreola RN RN lp1 Donnie Singleton ds4 Delmis Skinner Setul, MD MD sp3 Lola Holcomb RN RN cc4 Corrections: (The following items were deleted from the chart) 02/08 00:14 02/07 20:45 Cardiovascular: No deficits noted. Heart tones S1 S2 Capillary refill < 3 cc4 seconds Patient's skin is warm and dry. Pulses are all present. Rhythm is sinus rhythm Chest pain with cough.. cc4 02/08 00:18 02/07 20:50 Reassessment: EKG done; # 20 g angiocath inserted left AC x2 attempts per cc4 MAILE Fields with blood drawn \T\ sent to lab, denia. well. cc4
--- NOTE | 2021-02-07 22:50 | EDPHYS ---
Physician Documentation [facility] Name: Idalmis Charles Age: 60 yrs Sex: Female : 1960 Arrival Date: 02/07/2021 Time: 20:03 Bed 19 Private MD: ED Physician Collin Pereira HPI: 02/07 20:27 This 60 yrs old Female presents to ER via Wheelchair with complaints of Mid cp Back Pain. 20:27 The patient presents with pain that is acute, with no known mechanism of injury. The cp symptoms are located in the right subscapular area and right mid back. The problem was sustained from unknown cause. Onset: The symptoms/episode began/occurred 2 week(s) ago. 21:45 60-year-old female with history of hypertension, hyperlipidemia, prior AR on Plavix sp3 presents to the ED for mid back pain. Patient was seen yesterday by the day team and had an extensive work-up which included laboratory values, ultrasound of the abdomen, CT scan stone protocol, chest x-ray, EKG, urine analysis all which demonstrated no significant abnormality. Patient was discharged on NSAIDs but returns today for continued mid back pain that she says now is extending into her chest. Patient denies anterior chest pain, substernal chest pain, headache, neck pain, fever, anterior abdominal pain, lower back pain, urinary symptoms, URI symptoms, extremity pain, rash, known sick contacts, travel history, any other significant changes since yesterday.. Historical: - Allergies: 20:23 meperidine HCl; lp1 - Home Meds: 20:28 aspirin 81 mg Oral TbEC 1 tab once daily [Active]; Plavix 75 mg Oral tab 1 tab once lp1 daily [Active]; metoprolol tartrate 25 mg Oral tab 1 tab 2 times per day [Active]; atorvastatin 40 mg oral tab 1 tab once daily [Active]; - PMHx: 20:28 Hypertensive disorder; Myocardial infarction; hyperlipidemia; lp1 - PSHx: 20:28 heart stents; lp1 - Immunization history:: Adult Immunizations up to date. - Social history:: Smoking status: Patient denies any tobacco usage or history of. ROS: 20:30 Constitutional: Negative for body aches, chills, fever, malaise. cp 20:30 Cardiovascular: Negative for chest pain. 20:30 Abdomen/GI: Negative for abdominal pain, nausea, vomiting, and diarrhea. 20:30 Back: Positive for pain at rest, pain with movement, of the right subscapular area and right mid back. 20:30 Skin: Negative for rash. 20:30 All other systems are negative. 21:48 Constitutional: Negative for fever, chills, and weight loss, Eyes: Negative for injury, sp3 pain, redness, and discharge, ENT: Negative for injury, pain, and discharge, Neck: Negative for injury, pain, and swelling, Abdomen/GI: Negative for abdominal pain, nausea, vomiting, diarrhea, and constipation, MS/Extremity: Negative for injury and deformity, Skin: Negative for injury, rash, and discoloration, Neuro: Negative for headache, weakness, numbness, tingling, and seizure, Psych: Negative for depression, anxiety, suicide ideation, homicidal ideation, and hallucinations, Allergy/Immunology: Negative for hives, rash, and allergies, Endocrine: Negative for neck swelling, polydipsia, polyuria, polyphagia, and marked weight changes, Hematologic/Lymphatic: Negative for swollen nodes, abnormal bleeding, and unusual bruising. 21:48 All other systems are negative. Exam: 20:30 Head/Face: Normocephalic, atraumatic. cp 20:30 Constitutional: The patient appears in no acute distress, alert, awake, non-diaphoretic, non-toxic, well developed, well nourished, uncomfortable. 20:30 Back: pain, that is severe, of the right subscapular area and right mid back, ROM is painful, with all movement. 20:30 Skin: no rash present. 20:31 Chest/axilla: Inspection: normal. cp 20:31 Cardiovascular: Rate: normal, Rhythm: regular. 20:31 Respiratory: the patient does not display signs of respiratory distress, Respirations: labored breathing, is not present, shallow respirations, that is mild, Breath sounds: are clear throughout, no decreased breath sounds, no stridor, no wheezing. 21:49 Constitutional: This is a well developed, well nourished patient who is awake, alert, sp3 and in no acute distress. Head/Face: Normocephalic, atraumatic. Eyes: Pupils equal round and reactive to light, extra-ocular motions intact. Lids and lashes normal. Conjunctiva and sclera are non-icteric and not injected. Cornea within normal limits. Periorbital areas with no swelling, redness, or edema. ENT: Nares patent. No nasal discharge, no septal abnormalities noted. External auditory canals are clear. Oropharynx with no redness, swelling, or masses, exudates, or evidence of obstruction, uvula midline. Mucous membranes moist. Neck: Trachea midline, no thyromegaly or masses palpated, and no cervical lymphadenopathy. Supple, full range of motion without nuchal rigidity, or vertebral point tenderness. No Meningismus. Chest/axilla: Normal chest wall appearance and motion. Nontender with no deformity. No lesions are appreciated. Cardiovascular: Regular rate and rhythm with a normal S1 and S2. No gallops, murmurs, or rubs. Normal PMI, no JVD. No pulse deficits. Respiratory: Lungs have equal breath sounds bilaterally, clear to auscultation and percussion. No rales, rhonchi or wheezes noted. No increased work of breathing, no retractions or nasal flaring. Abdomen/GI: Soft, non-tender, with normal bowel sounds. No distension or tympany. No guarding or rebound. No evidence of tenderness throughout. Skin: Warm, dry with normal turgor. Normal color with no rashes, no lesions, and no evidence of cellulitis. MS/ Extremity: Pulses equal, no cyanosis. Neurovascular intact. Full, normal range of motion. Neuro: Awake and alert, GCS 15, oriented to person, place, time, and situation. Cranial nerves II-XII grossly intact. Motor strength 5/5 in all extremities. Sensory grossly intact. Cerebellar exam normal. Normal gait. 21:49 Back: Exam negative for deformity, ecchymosis kyphosis, scoliosis, Patient has mild pain to muscular palpation without any pain on bony prominences. Patient states that the pain is more "anterior".. 22:18 ECG was reviewed by the Attending Physician. Normal sinus rhythm at 80 bpm with small S sp3 wave in lead I, S waves inferiorly, nonspecific ST/T changes diffuse with an incomplete right bundle branch block without evidence of ischemia. Vital Signs: 20:24 BP 181 / 106; Pulse 93; Resp 20; Temp 97.7(TE); Pulse Ox 98% on R/A; Weight 68.04 kg; lp1 Height 5 ft. 2 in. (157.48 cm); Pain 10/10; 20:45 BP 159 / 108; Pulse 80; Resp 20; Temp 97.9; Pulse Ox 99% on R/A; cc4 20:58 BP 150 / 98; Pulse 79; Resp 20; Pulse Ox 98% on R/A; cc4 21:00 BP 171 / 96; Pulse 77; Resp 20; Pulse Ox 97% on R/A; cc4 21:15 BP 159 / 89; Pulse 75; Resp 20; Pulse Ox 97% on R/A; cc4 23:00 BP 122 / 81; Pulse 79; Resp 20; Pulse Ox 98% ; cc4 20:24 Body Mass Index 27.44 (68.04 kg, 157.48 cm) lp1 MDM: 20:35 Patient medically screened. sp3 21:48 Data reviewed: vital signs, nurses notes. sp3 21:50 Data reviewed: vital signs, nurses notes. ED course: Reviewed entire chart from sp3 yesterday. Will order CT scan of the chest pulmonary molybdenum protocol to assess the upper chest which was not assessed yesterday. Also get a second set of troponin and full laboratory work-up again. Dilaudid IV for pain control.. 22:46 ED course: The scan of the chest demonstrates no pulmonary embolism, vascular sp3 compromise, infection, any other abnormality. Patient feels better after pain medications. At this point I have advised her to follow-up with her primary care physician and GI specialist for endoscopy as all other work-up has been negative to date. Instructions were given to avoid NSAIDs and take Tylenol as needed for pain and return here for any further issues.. 02/07 20:53 Order name: Basic Metabolic Panel; Complete Time: 22:39 sp3 02/07 20:53 Order name: CBC with Diff; Complete Time: 22:39 sp3 02/07 20:53 Order name: LFT's; Complete Time: 22:39 sp3 02/07 20:53 Order name: Magnesium; Complete Time: 22:39 sp3 02/07 20:53 Order name: NT PRO-BNP; Complete Time: 22:39 sp3 02/07 20:53 Order name: PT-INR; Complete Time: 22:39 sp3 02/07 20:53 Order name: Troponin (emerg Dept Use Only); Complete Time: 22:39 sp3 02/07 20:53 Order name: EKG; Complete Time: 20:53 sp3 02/07 20:53 Order name: Cardiac monitoring; Complete Time: 21:41 sp3 02/07 20:53 Order name: EKG - Nurse/Tech; Complete Time: 21:41 sp3 02/07 20:53 Order name: IV Saline Lock; Complete Time: 21:41 sp3 02/07 20:53 Order name: CT Chest For PE Angio; Complete Time: 22:39 sp3 02/07 20:53 Order name: Labs collected and sent; Complete Time: 21:41 sp3 02/07 20:53 Order name: O2 Per Protocol; Complete Time: 21:46 sp3 02/07 20:53 Order name: O2 Sat Monitoring; Complete Time: 21:41 sp3 Administered Medications: 22:00 Drug: Dilaudid (HYDROmorphone) 1 mg Route: IVP; Site: left antecubital; cc4 22:15 Follow up: Response: No adverse reaction; Pain is decreased cc4 22:05 Drug: Zofran (Ondansetron) 4 mg Route: IVP; Site: left antecubital; cc4 22:15 Follow up: Response: No adverse reaction; Nausea is decreased cc4 Disposition: 02/08 06:40 Co-signature as Attending Physician, Collin Pereira MD I agree with the assessment and sp3 plan of care. Disposition Summary: 02/07/21 22:49 Discharge Ordered Location: Home sp3 Condition: Stable sp3 Diagnosis - Chest pain, unspecified sp3 Followup: sp3 - With: Private Physician - When: - Reason: Re-evaluation by your physician Followup: sp3 - With: Nacho Santiago MD - When: - Reason: Recheck today's complaints Discharge Instructions: - Discharge Summary Sheet sp3 - Acute Back Pain, Adult sp3 - Nonspecific Chest Pain, Pediatric sp3 Forms: - Medication Reconciliation Form sp3 - Thank You Letter sp3 - Antibiotic Education sp3 - Prescription Opioid Use sp3 Signatures: Dispatcher Medst EDSophie Morales RN RN lp1 Antony Edwards PA PA cp Patel, Setul, MD MD sp3 Zhang, Lola, RN RN cc4
[2021-02-07] MEDS ORDERED: HYDROMORPHONE HCL 1 MG/ML INJ ONE (22:55)
[2021-02-07] MEDS ORDERED: ONDANSETRON 4 MG/2 ML VIAL ONE (23:02)
[2021-02-08 00:33] VITALS: TEMP 97.9
[2021-02-08 00:35] VITALS: O2SAT 97
[2021-02-08 00:36] VITALS: BP 159/89
== END 2021-02-07 23:55 | disposition home or self-care (01) ==
LOC: ER 20:01
DX: R07.9 Chest pain, unspecified (principal); I10 Essential (primary) hypertension; E78.5 Hyperlipidemia, unspecified; I25.2 Old myocardial infarction; Z95.818 Presence of other cardiac implants and grafts; Z79.01 Long term (current) use of anticoagulants; Z79.82 Long term (current) use of aspirin; Z88.8 Allergy status to other drugs, medicaments and biological substances
CPT/HCPCS: 36415; 71275; 80048; 80076; 83735; 83880; 84484; 85025; 85610; 93005; 96374; 96375; 99284; J1170; J2405; Q9967

== ENCOUNTER 2022-04-03 15:55 | Inpatient (IN) | payer SELFPAY ==
--- OUTSIDE RECORDS SUMMARY | 2022-04-03 15:59 | XMS REPORT | Continuity of Care Document ---
:1960 Author Organization [facility] t Address [address] [place] [address] Care Team Providers Name Role Phone Ailstair Hays Attending Clinician Unavailable KNOW, DOES_NOT Admitting Clinician Unavailable Payers Payer Name Policy Type Policy Number Effective Date Expiration Date S ource Problems This patient has no known problems. Allergies, Adverse Reactions, Alerts Allergy Allergy Status Severity Reaction(s) Onset Inactive Treating Comm ents Source Name Type Date Date Clinician meperidi DA Active [place] 2020-0 [facility] ne 3-17 Clear 00:00: [address] meperidi DA Active [place] RASH-RAISED 2019-0 [facility] ne 3-17 Clear 00:00: [address] Medications This patient has no known medications. Procedures Procedure Date / Time Performed Performing Clinician Jerome rita [id number] 2019-06-25 00:00:00 [facility] [id number] 2019-06-25 00:00:00 [facility] [id number] 2019-06-25 00:00:00 [facility] [id number] 2019-06-25 00:00:00 [facility] Encounters Start End Encounter Admission Attending Care Care Encounter Source Date/Time Date/Time Type Type Clinicians Facility Department ID 2019-06-25 Inpatient HCAPM MCKENZIE [id number] [facility] 05:35:00 03 [facility] 2019-06-25 2019-06-25 Outpatient YANI Hays OUTD [id number] [facility] 09:11:00 09:11:00 [facility] Results Test Description Test Time Test Comments [...] ALKP) 71 Unit/L 45-117 N CBC W/AUTO [id number] 05:35:00 Test Item Value Reference Range Interpretation [...] = NO DIFF/SCN CRITERIA MDIFF) GLYCOSYLATED HEMOGLOBIN [id number] 06:58:00 Test Item Value Reference Range Interpretation Comments GLYCOSYLATED HEMOGLOBIN (HA1C) 5.1 % A1C 0.0-5.7 N (test code = GLYHGB) ESTIMATED AVERAGE GLUCOSE (test 100 MG/DLest code = EAG) COMPREHENSIVE METABOLIC [id number] 06:48:00 Test Item Value Reference Range Interpretation [...] = LDL/HDL) 4.66 Ratio 1.48-3.22 Avg H [id number] 06:48:00 Test Item Value Reference Range Interpretation Comments PHOSPHOROUS (test code = PHOS) 2.2 MG/DL 2.5-4.9 L [id number] 06:48:00 Test Item Value Reference Range Interpretation Comments MAGNESIUM (test code = MAG) 1.8 MG/DL 1.8-2.4 N CBC W/AUTO [id number] 06:35:00 Test Item Value Reference Range Interpretation [...] = NO DIFF/SCN CRITERIA MDIFF) COAGULATION TIME [id number] 14:53:00 Test Item Value Reference Range Interpretation Comments COAGULATION TIME ACTIVATED (test 142 SECistat 74-125 H code = ACT) - XR CHEST 1 [id number] 10:40:00 [facility] [place] [facility] 1960 Age/S: 58 / F [id number] Unit #: [id number] Loc: [place] [address] Phys: Ramses Horowitz MD Acct: [id number] Dis Date: Status: ADM IN PHONE #: [phone] Exam Date: 06/25/2019 1005 FAX #: Reason: STEMI EXAMS: CPT: [id number] XR CHEST 1 V [id number] Fluoro Time: DAP (Gy m2): Air Kerma (mGy): EXAM: - XR CHEST 1 V Location code:C3 HISTORY: Follow-up evaluation COMPARISON: 05/27/2019 FINDINGS: Frontal view of the chest is submitted. Heart size within normal limits. Mild pulmonary congestive changes noted. The lungs are clear of focal consolidation. No effusion or evidence of pneumothorax.. No acute osseous pathology. IMPRESSION 1. Mild pulmonary congestive changes. No large effusion. at 1040 Reported and signed by: Ro Fuentes M.D. CC: Ramses Lara; Alistair Hays MD PAGE 1 Signed Report Name: MARGIE COLLINS [facility] : 1960 Age/S: 58 / F [id number] Unit #: [id number] Loc: [place] [address] Phys: Ramses Horowitz MD Acct: [id number] Dis Date: Status: ADM IN PHONE #: [phone] Exam Date: 06/25/2019 1005 FAX #: Reason: STEMI EXAMS: CPT: [id number] XR CHEST 1 V 51320 Fluoro Time: DAP (Gy m2): Air Kerma (mGy): (Continued) Technologist: Una Ron, RT(R)(CT) Trnscb Date/Time: 06/25/2019 (1060) [email or web address] Orig Print D/T: S: 06/25/2019 (7986) PAGE 2 Signed ReportCOAGULATION TIME [id number] 07:17:00 Test Item Value Reference Range Interpretation Comments COAGULATION TIME ACTIVATED (test 384 SECistat 74-125 H code = ACT) TROPONIN I [id number] 07:12:00 Test Item Value Reference Range Interpretation [...] iagnosis of myocardial i nfraction. BASIC METABOLIC [id number] 06:22:00 Test Item Value Reference Range Interpretation [...] 8.5 MG/DL 8.5-10.1 N Completed by Nursing: NOCREATINE KINASE (CK)2019-06-25 06:22:00 Test Item Value Reference Range Interpretation Comments CREATINE KINASE (CK) (test code = 52 Unit/L 26-192 N CK) Completed by Nursing: [id number] 06:22:00 Test Item Value Reference Range Interpretation [...] yby method. Completed by Nursing: NOBASIC METABOLIC [id number] 06:03:00 Test Item Value Reference Range Interpretation [...] = CK) Unit/L 26-192 Completed by Nursing: [id number] 06:03:00 Test Item Value Reference Range Interpretation Comments TROPONIN-I (test code = TROPI) NG/ML 0.000-0.045 Completed by Nursing: IDANIABC W/O [id number] 05:56:00 Test Item Value Reference Range Interpretation [...] 7.0-10.5 H MPV) - XR CHEST 1 [id number] 05:51:00 Name: MARGIE COLLINS [place] : 1960 Age/S: 58 / F [id number] [place] [address] Unit #: [id number] Loc: [place] [address] Phys: Ilir Bundy MD Acct: [id number] Dis Date: Status: ADM IN [facility] #: [phone] Exam Date: 06/25/2019 0545 FAX #: Reason: chest pain EXAMS: CPT: [id number] XR CHEST 1 V 39833 Fluoro Time: DAP (Gy m2): Air Kerma (mGy): EXAMINATION: - XR CHEST 1 V LOCATION: 1 INDICATION/CLINICAL HISTORY: chest pain COMPARISON: None. TECHNIQUE: Frontal view of the chest. FINDINGS: Cardiomediastinal silhouette: Mild enlargement of the cardiac silhouette. Pulmonary vasculature: Not congested. Lungs/pleura: No consolidation, pneumothorax or pleural effusion. Upper abdomen: Unremarkable. Regional osseous structures: Intact. IMPRESSION: No acute cardiopulmonary findings. Ghazal ctronically Signed by Cat Small on 06/25/2019 at 0551 Reported and signed by: Mason Small M.D. CC: Ilir Bundy MD PAGE 1 Signed Report Name: MARGIE COLLINS [place] : 1960 Age/S: 58 / F [id number] [facility] Unit #: [id number] Loc: [place] [address] Phys: Ilir Bundy MD Acct: [id number] Dis Date: Status: ADM IN PHONE #: [phone] Exam Date: 06/25/2019 0572 FAX #: Reason: chest pain EXAMS: CPT: [id number] XR CHEST 1 V 77791 Fluoro Time: DAP (Gy m2): Air Kerma (mGy): (Continued) Technologist: Terry Alvarado RT(R) Trnscb Date/Time: 06/25/2019 (0551) [email or web address] OrigPrint D/T: S: 06/25/2019 (1045) PAGE 2 Signed Report
--- NOTE | 2022-04-03 16:31 | RAD REPORT ---
EXAM DESCRIPTION: RAD - Chest Single View - 04/03/2022 4:22 pm CLINICAL HISTORY: CHEST PAIN Chest pain. COMPARISON: Chest Single View dated 02/06/2021; Chest Single View dated 11/23/2020; CHEST SINGLE VIEW dated 08/27/2012 FINDINGS: Portable technique limits examination quality. Mild pulmonary edema suspected. The heart is mildly prominent size. No displaced fractures. IMPRESSION: Mild CHF.
[2022-04-03] MEDS ORDERED: DIPHENHYDRAMINE 50 MG/ML VIAL ONE (16:51)
[2022-04-03] MEDS ORDERED: METHYLPREDNISOLONE 125 MG INJ ONE (16:51)
[2022-04-03] MEDS ORDERED: METOPROLOL TAR 50 MG TAB ONE (16:51)
[2022-04-03] MEDS ORDERED: ASPIRIN 81 MG CHEWABLE TABLET ONE (16:52)
[2022-04-03] MEDS ORDERED: FAMOTIDINE 20 MG/2 ML VIAL IV ONE (16:52)
[2022-04-03] MEDS ORDERED: NA CHLORIDE 0.9% 1,000 ML ONE (16:52)
[2022-04-03 16:56] LABS: SARS-CoV-2 Antigen Rapid Res Negative (Negative)
[2022-04-03 16:58] LABS: Troponin High Sensitivity 22.2 pg/mL (<58.9)
[2022-04-03 16:59] LABS: Potassium 3.4 mmol/L (3.5-5.1)
[2022-04-03 17:02] LABS: Absolute Lymphocytes (CBC) 4.4 K/uL (0.7-4.9); Hematocrit 47.2 % (36.0-45.0); Lymphocytes % 29.3 % (15.3-44.8); MCV 82.9 fL (80-100); MPV 9.2 fL (7.6-11.3); RBC Red Blood Cell Count 5.69 M/uL (3.86-4.86)
--- NOTE | 2022-04-03 17:54 | ER ---
Nurse's Notes [facility] Name: Idalmis Charles Age: 61 yrs Sex: Female : 1960 Arrival Date: 04/03/2022 Time: 16:01 Bed 4 Private MD: Diagnosis: Chest pain, unspecified;Essential (primary) hypertension;Hypokalemia;Elevated white blood cell count;Tobacco abuse counseling;Tobacco use;Allergy, unspecified, initial encounter-FOOD;Tachycardia, unspecified Presentation: 04/03 16:05 Chief complaint: EMS states: BACK PAIN x1 HR. Coronavirus screen: At this time, the bp client does not indicate any symptoms associated with coronavirus-19. Ebola Screen: No symptoms or risks identified at this time. Initial Sepsis Screen: Does the patient meet any 2 criteria? HR > 90 bpm. No. Patient's initial sepsis screen is negative. Does the patient have a suspected source of infection? No. Patient's initial sepsis screen is negative. Risk Assessment: Do you want to hurt yourself or someone else? Patient reports no desire to harm self or others. Onset of symptoms was April 03, 2022 at 15:00. Care prior to arrival: Medication(s) given: ASA, 81 mg, x 4, Nitroglycerin, 0.4 mg SL x 1, Glucose check: 193. 16:05 Method Of Arrival: EMS: [facility] bp 16:05 Acuity: BAR 3 bp Triage Assessment: 16:06 General: Appears distressed, uncomfortable, obese, Behavior is cooperative, appropriate bp for age, anxious. Pain: Complains of pain in back. EENT: No deficits noted. Neuro: No deficits noted. Cardiovascular: Rhythm is atrial fibrillation with rapid ventricular response. Respiratory: No deficits noted. GI: No signs and/or symptoms were reported involving the gastrointestinal system. : No signs and/or symptoms were reported regarding the genitourinary system. Derm: Skin is red. Musculoskeletal: No deficits noted. Historical: - Allergies: 16:06 meperidine HCl; bp - Home Meds: 16:06 aspirin 81 mg Oral TbEC 1 tab once daily [Active]; atorvastatin 40 mg Oral tab 1 tab bp once daily [Active]; metoprolol tartrate 25 mg Oral tab 1 tab 2 times per day [Active]; Plavix 75 mg Oral tab 1 tab once daily [Active]; - PMHx: 16:06 Hyperlipidemia; Hypertensive disorder; Myocardial infarction; bp - PSHx: 16:06 Heart Stents; bp - Immunization history:: Adult Immunizations up to date. - Social history:: Smoking status: Patient reports the use of cigarette tobacco products, unknown amount. Screenin:12 [facility] ED Fall Risk Assessment (Adult) History of falling in the last 3 months, including since admission No falls in past 3 months (0 pts) Confusion or Disorientation No (0 pts) Intoxicated or Sedated No (0 pts) Impaired Gait No (0 pts) Mobility Assist Device Used No (0 pt) Altered Elimination No (0 pt) Score/Fall Risk Level 0 - 2 = Low Risk. Abuse screen: Denies threats or abuse. Nutritional screening: No deficits noted. Tuberculosis screening: No symptoms or risk factors identified. Assessment: 16:07 General: SEE TRIAGE NOTE. bp Vital Signs: 16:00 BP 154 / 102; Pulse 128; Resp 22; Pulse Ox 98% ; Weight 113.4 kg; bp 16:05 BP 170 / 90; Pulse 124; Resp 24; Temp 98; Pulse Ox 96% on R/A; bp 16:30 BP 122 / 99; Pulse 110; Resp 22; Pulse Ox 98% ; kb3 17:00 BP 137 / 91; Pulse 112; Resp 20; Pulse Ox 100% ; kb3 17:30 BP 156 / 82; Pulse 103; Resp 20; Pulse Ox 100% ; kb3 19:30 BP 135 / 74; Pulse 83; Resp 22; Pulse Ox 98% on 2 lpm NC; kl 20:11 BP 125 / 77; Pulse 87; Resp 18; Pulse Ox 97% on 2 lpm NC; kl ED Course: 16:01 Patient arrived in ED. ju 16:02 Antony Palacio MD is Attending Physician. ju 16:04 EKG done, by ED staff, reviewed by Antony Palacio MD. mm9 16:04 Patient has correct armband on for positive identification. Placed in gown. Bed in low mm9 position. Call light in reach. Side rails up X2. Adult w/ patient. Warm blanket given. monitor car operator on. Pulse ox on. NIBP on. 16:06 Triage completed. bp 16:24 XRAY Chest (1 view) In Process Unspecified. EDMS 16:33 SARS RAPID Sent. kb3 17:[address] kb3 17:33 CT Aorta for Dissection In Process Unspecified. EDMS 17:42 Scar Anderson, VIKASH is Primary Nurse. bp 17:52 Ba Cervantes MD is Hospitalizing Provider. ju 20:12 No provider procedures requiring assistance completed. Patient admitted, IV remains in kl place. Administered Medications: 16:46 Not Given (Duplicate Order): NS 0.9% 1000 ml IV at 1 bolus Per protocol; 1000 mL bolus ju 16:46 Not Given (Duplicate Order): Benadryl (diphenhydrAMINE) 50 mg IVP once ju 16:46 Not Given (Duplicate Order): predniSONE 60 mg PO once ju 16:55 Drug: Pepcid (famotidine) 40 mg Route: IVP; Site: right hand; kb3 16:58 Drug: SOLU-Medrol (methylPrednisoLONE) 125 mg Route: IVP; Site: right hand; kb3 17:00 Drug: Benadryl (diphenhydrAMINE) 25 mg Route: IVP; Site: right hand; kb3 17:00 Drug: NS 0.9% 1000 ml Route: IV; Rate: 75 ml/hr; Site: right hand; bp 17:00 Drug: Lopressor (metoprolol TARTRATE) 50 mg Route: PO; kb3 17:45 Drug: Potassium Effervescent Tablet 25 mEq Route: PO; bp 18:00 Drug: Lopressor (metoprolol) 2.5 mg Route: IVP; Site: right hand; bp 18:00 Drug: Xopenex (levalbuterol) 2.5 mg Route: Inhalation; bp 18:00 Drug: AtroVENT (ipratropium) Aerosol 0.5 mg Route: Inhalation; bp 18:10 Drug: Lovenox (enoxaparin) 1 mg/kg Route: Sub-Q; Site: right lower abdomen; bp 18:15 Drug: Lopressor (metoprolol) 2.5 mg Route: IVP; Site: right hand; bp Medication: 16:07 VIS not applicable for this client. bp Outcome: 17:54 Decision to Hospitalize by Provider. ju 20:12 Admitted to Med/surg accompanied by tech, via stretcher, room 207, with chart, Report kl called to jodi 20:12 Condition: stable 20:12 Discharge instructions given to patient, family, Instructed on the need for admit, Demonstrated understanding of instructions, follow-up care. 21:42 Patient left the ED. jaycee Signatures: Dispatcher [employer] EDRo Martin RN RN kl Anderson, Corey, MD MD cha Ballard, Brenda, RN RN bb Peltier, Brian, RN RN bp Bradberry, Kelly, RN RN kb3 Martinez, Maria mm9 Corrections: (The following items were deleted from the chart) 17:55 16:00 BP 154 / 102; Pulse 128bpm; Resp 22bpm; Pulse Ox 98%; kb3 bp
--- NOTE | 2022-04-03 17:55 | EDPHYS ---
Physician Documentation [facility] Name: Idalmis Charles Age: 61 yrs Sex: Female : 1960 Arrival Date: 04/03/2022 Time: 16:01 Bed 4 Private MD: ED Physician Antony Palacio HPI: 04/03 16:51 This 61 yrs old Female presents to ER via EMS with complaints of Shortness Of ju Breath, Chest Pain. 16:51 The patient has shortness of breath at rest, with light activity. Onset: The ju symptoms/episode began/occurred just prior to arrival. Duration: The symptoms are continuous, but are steadily getting better. The patient's shortness of breath has no apparent modifying factors. Associated signs and symptoms: The patient has no apparent associated signs or symptoms. Severity of symptoms: At their worst the symptoms were mild in the emergency department the symptoms are unchanged. The patient has experienced similar episodes in the past, a few times. Historical: - Allergies: 16:06 meperidine HCl; bp - Home Meds: 16:06 aspirin 81 mg Oral TbEC 1 tab once daily [Active]; atorvastatin 40 mg Oral tab 1 tab bp once daily [Active]; metoprolol tartrate 25 mg Oral tab 1 tab 2 times per day [Active]; Plavix 75 mg Oral tab 1 tab once daily [Active]; - PMHx: 16:06 Hyperlipidemia; Hypertensive disorder; Myocardial infarction; bp - PSHx: 16:06 Heart Stents; bp - Immunization history:: Adult Immunizations up to date. - Social history:: Smoking status: Patient reports the use of cigarette tobacco products, unknown amount. ROS: 16:52 Constitutional: Negative for fever, chills, and weight loss, Eyes: Negative for injury, ju pain, redness, and discharge, ENT: Negative for injury, pain, and discharge, Neck: Negative for injury, pain, and swelling, Abdomen/GI: Negative for abdominal pain, nausea, vomiting, diarrhea, and constipation, Back: Negative for injury and pain, : Negative for injury, bleeding, discharge, and swelling, MS/Extremity: Negative for injury and deformity, Neuro: Negative for headache, weakness, numbness, tingling, and seizure, Psych: Negative for depression, anxiety, suicide ideation, homicidal ideation, and hallucinations, Allergy/Immunology: Negative for hives, rash, and allergies, Endocrine: Negative for neck swelling, polydipsia, polyuria, polyphagia, and marked weight changes, Hematologic/Lymphatic: Negative for swollen nodes, abnormal bleeding, and unusual bruising. 16:52 Cardiovascular: Positive for chest pain, palpitations. 16:52 Respiratory: Positive for shortness of breath. 16:52 Skin: Positive for erythema, diffusely, FLUSHED. Exam: 16:52 Constitutional: This is a well developed, well nourished patient who is awake, alert, ju and in no acute distress. Head/Face: Normocephalic, atraumatic. Eyes: Pupils equal round and reactive to light, extra-ocular motions intact. Lids and lashes normal. Conjunctiva and sclera are non-icteric and not injected. Cornea within normal limits. Periorbital areas with no swelling, redness, or edema. ENT: Nares patent. No nasal discharge, no septal abnormalities noted. Tympanic membranes are normal and external auditory canals are clear. Oropharynx with no redness, swelling, or masses, exudates, or evidence of obstruction, uvula midline. Mucous membranes moist. Neck: Trachea midline, no thyromegaly or masses palpated, and no cervical lymphadenopathy. Supple, full range of motion without nuchal rigidity, or vertebral point tenderness. No Meningismus. Chest/axilla: Normal chest wall appearance and motion. Nontender with no deformity. No lesions are appreciated. Cardiovascular: Regular rate and rhythm with a normal S1 and S2. No gallops, murmurs, or rubs. Normal PMI, no JVD. No pulse deficits. Respiratory: Lungs have equal breath sounds bilaterally, clear to auscultation and percussion. No rales, rhonchi or wheezes noted. No increased work of breathing, no retractions or nasal flaring. Abdomen/GI: Soft, non-tender, with normal bowel sounds. No distension or tympany. No guarding or rebound. No evidence of tenderness throughout. Back: No spinal tenderness. No costovertebral tenderness. Full range of motion. Female : Normal external genitalia. Skin: Warm, dry with normal turgor. Normal color with no rashes, no lesions, and no evidence of cellulitis. MS/ Extremity: Pulses equal, no cyanosis. Neurovascular intact. Full, normal range of motion. Neuro: Awake and alert, GCS 15, oriented to person, place, time, and situation. Cranial nerves II-XII grossly intact. Motor strength 5/5 in all extremities. Sensory grossly intact. Cerebellar exam normal. Normal gait. Psych: Awake, alert, with orientation to person, place and time. Behavior, mood, and affect are within normal limits. 16:52 ECG was reviewed by the Attending Physician. 18:45 ECG was reviewed by the Attending Physician. [facility] Vital Signs: 16:00 BP 154 / 102; Pulse 128; Resp 22; Pulse Ox 98% ; Weight 113.4 kg; bp 16:05 BP 170 / 90; Pulse 124; Resp 24; Temp 98; Pulse Ox 96% on R/A; bp 16:30 BP 122 / 99; Pulse 110; Resp 22; Pulse Ox 98% ; kb3 17:00 BP 137 / 91; Pulse 112; Resp 20; Pulse Ox 100% ; kb3 17:30 BP 156 / 82; Pulse 103; Resp 20; Pulse Ox 100% ; kb3 19:30 BP 135 / 74; Pulse 83; Resp 22; Pulse Ox 98% on 2 lpm NC; kl 20:11 BP 125 / 77; Pulse 87; Resp 18; Pulse Ox 97% on 2 lpm NC; kl MDM: 16:02 Patient medically screened. [facility] 16:54 Data reviewed: vital signs, nurses notes, lab test result(s), EKG, radiologic studies, ju CT scan, plain films. 16:54 Differential diagnosis: Anemia Bronchitis CHF exacerbation, Chronic Obstructive ju Pulmonary Disease abnormal EKG, acute myocardial infarction, acute pericarditis, anxiety, coronary artery disease congestive heart failure Cholelithiasis Abdominal Aortic Aneurysm arthritis, Basilar Pneumonia Cholelithiasis chronic back pain, esophagitis, gastritis, gastroesophageal reflux disease (GERD), herpes zoster, hiatal hernia, pancreatitis, pneumonia, pulmonary embolus, stable angina, Neoplasm Obesity Osteoarthritis ruptured disc, spinal injury, Ureterolithiasis thoracic aortic disection, unstable angina, pulmonary edema, Pulmonary Embolism reactive airway disease, Unstable Angina. Antibiotic administration: Not indicated. HEART Score: History: Moderately Suspicious (1), ECG: Non specific repolarization disturbance / LBTB / PM (1), Age: > 45 and < 65 years (1), Risk Factors: > or = 3 Risk factors for atherosclerotic disease (2), [Hypercholesterolemia] [Hypertension] [Active Smoker] [+ Family HX] [Obesity] Troponin: < or = 1 x Normal Limit (0), Total Score = 4. The patient was given aspirin in the Emergency Department. The patient's Wells Deep Vein Thrombosis Score was calculated as follows: Total Score: 0. This patient was found to be at low risk for a deep vein thrombosis by using the Well's assessment criteria Total Score: 0-2 Pts- Low Risk. The patient's pulmonary embolism risk score was calculated as follows: Total Score: 0-2 points. This patient was found to be at low risk for a pulmonary embolism by using the Well's assessment criteria Total Score: 0-2 points. This patient was found to be at low risk for a pulmonary embolism by using the Well's assessment criteria. AIMEE Risk Score: 1 - Three or more CAD risk factors, 1- Known CAD, 1 - ASA use in past 7 days, 1 - Recent [<24hrs] Severe Angina, TOTAL SCORE = 4. Immunization status: Influenza vaccine: Data interpreted: planer off bearer: rate is 124 beats/min, rhythm is regular, Pulse oximetry: on room air is 96 %. Test interpretation: by ED physician or midlevel provider: ECG, plain radiologic studies. 04/03 16:08 Order name: Basic Metabolic Panel; Complete Time: 18: [facility] 04/03 16:08 Order name: CBC with Diff; Complete Time: 17: [facility] 04/03 16:08 Order name: Troponin HS; Complete Time: 18: [facility] 04/03 16:10 Order name: Lipase; Complete Time: 17: [facility] 04/03 16:10 Order name: SARS RAPID; Complete Time: 17:22 [facility] 04/03 16:08 Order name: XRAY Chest (1 view); Complete Time: 17: [facility] 04/03 16:47 Order name: CT Aorta for Dissection; Complete Time: 18:04 [facility] 04/03 17:52 Order name: NT PRO-BNP; Complete Time: 18:05 [facility] 04/03 16:08 Order name: EKG; Complete Time: 16: [facility] 04/03 16:08 Order name: Cardiac monitoring; Complete Time: 16:08 [facility] 04/03 16:08 Order name: EKG - Nurse/Tech; Complete Time: 16: [facility] 04/03 16:08 Order name: IV Saline Lock; Complete Time: 16:08 [facility] 04/03 16:08 Order name: Labs collected and sent; Complete Time: 16: [facility] 04/03 16:08 Order name: O2 Per Protocol; Complete Time: 16: [facility] 04/03 18:24 Order name: EKG; Complete Time: 18:25 [facility] 04/03 16:08 Order name: O2 Sat Monitoring; Complete Time: 16: [facility] 04/03 18:24 Order name: EKG - Nurse/Tech; Complete Time: 18:48 [facility] EC:52 Rate is 128 beats/min. Rhythm is regular. QRS [place] is Normal. MA interval is normal. ju QRS interval is normal. QT interval is normal. No Q waves. T waves are Normal. No ST changes noted. Clinical impression: Sinus tachycardia and No evidence of ischemia. Interpreted by me. Reviewed by me. 18:45 Rate is 91 beats/min. Rhythm is regular. QRS [place] is Normal. MA interval is normal. QRS ju interval is normal. QT interval is normal. No Q waves. T waves are Normal. No ST changes noted. Clinical impression: NSR w/ Non-specific ST/T Changes and No evidence of ischemia. Interpreted by me. Reviewed by me. Administered Medications: 16:46 Not Given (Duplicate Order): NS 0.9% 1000 ml IV at 1 bolus Per protocol; 1000 mL bolus ju 16:46 Not Given (Duplicate Order): Benadryl (diphenhydrAMINE) 50 mg IVP once ju 16:46 Not Given (Duplicate Order): predniSONE 60 mg PO once ju 16:55 Drug: Pepcid (famotidine) 40 mg Route: IVP; Site: right hand; kb3 16:58 Drug: SOLU-Medrol (methylPrednisoLONE) 125 mg Route: IVP; Site: right hand; kb3 17:00 Drug: Benadryl (diphenhydrAMINE) 25 mg Route: IVP; Site: right hand; kb3 17:00 Drug: NS 0.9% 1000 ml Route: IV; Rate: 75 ml/hr; Site: right hand; bp 17:00 Drug: Lopressor (metoprolol TARTRATE) 50 mg Route: PO; kb3 17:45 Drug: Potassium Effervescent Tablet 25 mEq Route: PO; bp 18:00 Drug: Lopressor (metoprolol) 2.5 mg Route: IVP; Site: right hand; bp 18:00 Drug: Xopenex (levalbuterol) 2.5 mg Route: Inhalation; bp 18:00 Drug: AtroVENT (ipratropium) Aerosol 0.5 mg Route: Inhalation; bp 18:10 Drug: Lovenox (enoxaparin) 1 mg/kg Route: Sub-Q; Site: right lower abdomen; bp 18:15 Drug: Lopressor (metoprolol) 2.5 mg Route: IVP; Site: right hand; bp Disposition Summary: 04/03/22 17:54 Hospitalization Ordered Hospitalization Status: Observation ju Provider: Ba Cervantes cha Location: Telemetry/MedSurg (observation) ju Condition: Stable ju Problem: new ju Symptoms: have improved ju Bed/Room Type: Standard [facility] Room Assignment: 207(04/03/22 19:53) cg Diagnosis - Chest pain, unspecified ju - Essential (primary) hypertension ju - Hypokalemia ju - Elevated white blood cell count ju - Tobacco abuse counseling ju - Tobacco use ju - Allergy, unspecified, initial encounter - FOOD ju - Tachycardia, unspecified ju Forms: - Medication Reconciliation Form ju - SBAR form ju Signatures: Dispatcher [employer] EDMS Antony Palacio MD MD cha Calderon, Audri, RN RN aa5 Davey Chan, NET FRONT END DEVELOPER-C NET FRONT END DEVELOPER-Cla1 Maria Teresa Whitlock RN RN cg Scar Anderson, RN RN bp Abi Melara RN RN kb3 Corrections: (The following items were deleted from the chart) 17:52 17:40 PROBNP+C.LAB.BRZ ordered. EDMS EDMS 18:33 18:32 Abnormal electrocardiogram [ECG] [EKG] ju [facility] 19:53 17:54 ju cg
--- NOTE | 2022-04-03 18:00 | RAD REPORT ---
EXAM DESCRIPTION: CT - Angio Aorta For Dissection - 04/03/2022 5:32 pm CLINICAL HISTORY: Chest pain radiating to the back. CP COMPARISON: No comparisons TECHNIQUE: CT angiography of the aorta was performed with MIPs. All CT scans are performed using dose optimization technique as appropriate and may include automated exposure control or mA/KV adjustment according to patient size. 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 No evidence of thoracic aortic an eurysm or dissection. Moderate mural thrombus is present in the descending thoracic aorta near the di aphragmatic hiatus. A small focal infrarenal aortic aneurysm is present with maximum dimension of 2.9 cm. Mild atherosclerosis of the distal abdominal aorta and both iliac vessels is present. No evidence of pulmonary embolism. Mild COPD is present. The liver demonstrates no focal mass or biliary dilatation.The spleen, pancreas, adrenal glands and k idneys are within normal limits for arterial phase imaging.Bilateral renal cysts are present, benign appearance. No bowel obstruction, free fluid or abscess.Moderate stool is present throughout the colon. Nonvisual ized appendix.No pathologic enlarged lymphadenopathy identified. No fracture or worrisome bone lesion seen. IMPRESSION: No acute aortic finding is demonstrated. Small infrarenal abdominal aortic aneurysm measuring 2.9 cm. Mild COPD.
[2022-04-03] MEDS ORDERED: LEVALBUTEROL 1.25 MG/3 ML NEB ONE (18:06)
[2022-04-03] MEDS ORDERED: POTASSIUM 25 MEQ EFFERV TAB ONE (18:06)
[2022-04-03] MEDS ORDERED: ENOXAPARIN 100 MG/ML SYR SQ ONE (18:06)
[2022-04-03] MEDS ORDERED: METOPROLOL TARTRATE 5 MG/5 ML INJ IV ONE (18:07)
[2022-04-03] MEDS ORDERED: IPRATROPIUM BROM 0.5MG/2.5ML ONE (18:07)
--- NOTE | 2022-04-03 20:08 | P.HP ---
Certification for Inpatient Patient admitted to: Observation With expected LOS: <2 Midnights Patient will require the following post-hospital care: None Practitioner: I am a practitioner with admitting privileges, knowledge of patient current condition, hospital course, and medical plan of care. Services: Services provided to patient in accordance with Admission requirements found in Title 42 Section 412.3 of the Code of Federal Regulations <Davey Chan - Last Filed: 04/03/22 20:05> Patient History Date of Service: 04/03/22 Reason for admission: ACS rule out History of Present Illness: 61-year-old female with history of hypertension, hyperlipidemia, CAD presents emergency department for chest pain/back pain. She reports her symptoms began while resting started as a squeezing back pain radiating to her chest she reports is similar to her previous ND, became dizzy, nauseous had near syncopal event at home. Her labs were significant for leukocytosis white blood cell 15.1 hemoglobin 16.3 hematocrit 47.2 potassium 3[address] dissection protocol was performed which did identify incidental finding of a 2.9 cm infrarenal abdominal aortic aneurysm, mild COPD, no acute aortic finding. Initial high- sensitivity troponin negative, ED provider wishes to admit under observation for ACS rule out. - Past Medical/Surgical History Diabetic: No -: CAD -: Hypertension -: Hyperlipidemia -: Hysterectomy -: Left ankle -: Right surgery Psychosocial/ Personal History: Patient lives at home with her family - Family History Father -: Cancer - Social History Smoking Status: Current every day smoker Counseled patient to stop smoking for: less than 10 minutes Smoking therapy provided: No (Patient declined) Alcohol use: No CD- Drugs: No Caffeine use: No Place of Residence: Home <Davey Chan - Last Filed: 04/03/22 20:05> Date of Service: 04/05/22 <Bladimir Lockhart - Last Filed: 04/05/22 14:35> Allergies meperidine HCl [From Demerol] Allergy (Severe, Verified 08/29/12 20:58) Pt states "went into coma for 21 days" Home Medications: Aspirin Chewable [Aspirin Chewable*] 81 mg PO DAILY 04/03/22 Atorvastatin Calcium [Lipitor] 40 mg PO BEDTIME 04/03/22 Cetirizine HCl [Zyrtec] 10 mg PO DAILY 04/03/22 Clopidogrel Bisulfate [Plavix*] 75 mg PO DAILY 04/03/22 Metoprolol Tartrate 25 mg PO BID 04/03/22 Multivitamin 1 each PO DAILY 04/03/22 Vit C/E/Zn/Coppr/Lutein/Zeaxan [Preservision Areds 2 Softgel] 1 each PO BID 04/03/22 Atorvastatin Calcium [Lipitor] 40 mg PO BEDTIME #30 tab 04/05/22 Review of Systems 10-point ROS is otherwise unremarkable Respiratory: Shortness of Breath Cardiovascular: Chest Pain <Davey Chan - Last Filed: 04/03/22 20:05> Physical Examination - Physical Exam General: Alert, In no apparent distress, Oriented x3 HEENT: Atraumatic, PERRLA, Mucous membr. moist/pink, EOMI, Sclerae nonicteric Neck: Supple, 2+ carotid pulse no bruit, No LAD, Without JVD or thyroid abnormality Respiratory: Normal air movement, Expiratory wheezes Cardiovascular: No edema, Regular rate/rhythm, Normal S1 S2 Gastrointestinal: Normal bowel sounds, No tenderness Musculoskeletal: No tenderness Integumentary: No rashes Neurological: Normal speech, Normal strength at 5/5 x4 extr, Normal tone, Normal affect - Studies Laboratory Data (last 24 hrs) 04/03/22 16:24: Lipase 140 04/03/22 16:24: WBC 15.10 H, Hgb 16.3 H, Hct 47.2 H, Plt Count 372 04/03/22 16:24: Sodium 138, Potassium 3.4 L, BUN 14, Creatinine 0.94, Glucose 228 H <Davey Chan - Last Filed: 04/03/22 20:05> Assessment and Plan - Plan Assessment: Chest pain rule out ACShistory CAD Leukocytosis Hyperglycemia Hypertension Hyperlipidemia Plan: Chest pain rule out ACShistory CAD: Trend troponins, monitor on telemetry, cardiology consult in place. Given aspirin, therapeutic Lovenox in ED. Continue aspirin, Plavix, metoprolol the patient takes at home. Last heart catheterization at [facility] facility in June 2019 with 2 stent placements. Appreciate further input from cardiology. Leukocytosis: Appears hemoconcentrated, continue gentle IV fluids overnight repeat in the morning. No signs of infection or fever. Hyperglycemia: Glucose elevated 228 no known history of diabetes. Obtain A1c in the morning. Hypertension: Home medications continued. Hyperlipidemia: Home medications continued. DVT PPX: Lovenox Code status: Full Discharge Plan: Home Plan to discharge in: 24 Hours - Advance Directives Does patient have a Living Will: No Does patient have a Durable POA for Healthcare: No - Code Status/Comfort Care Code Status Assessed: Yes (Full code) Critical Care: No Time Spent Managing Pts Care (In Minutes): 55 <Davey Chan - Last Filed: 04/03/22 20:05> - Problems (Diagnosis) (1) Chest pain, rule out acute myocardial infarction Current Visit: Yes Status: Acute (2) History of UTI Current Visit: Yes Status: Acute (3) History of hypertension Current Visit: Yes Status: Acute <Bladimir Lockhart - Last Filed: 04/05/22 14:35> Date of Service: 04/04/22 Subjective: HPI as mentioned above Physical Examination: Vitals: Afebrile vital signs are stable Physical exam: Cardiovascular: Within normal limits. Lungs: Within normal limits Abdomen: Within normal limits Neuro: Awake, alert, oriented to person place and time Assessment: 1. Chest pain rule out acute coronary syndrome 2. Flank tenderness 3. Generalized complaints Plan: 1. Continue with current plan of care as mentioned above <Bladimir Lockhart - Last Filed: 04/05/22 14:35>
[2022-04-03] MEDS ORDERED: NITROGLYCERIN 0.4 MG/TAB SL PRN (20:36)
[2022-04-03 21:54] VITALS: BMI 31.1
[2022-04-03] MEDS ORDERED: MORPHINE 2 MG/ML SYR ONE (22:35)
[2022-04-03] MEDS: ATORVASTATIN 40 MG TAB PO SCH (22:35)
[2022-04-03] MEDS ORDERED: Ringers Lactate 1,000 ML IV ONE (22:35)
[2022-04-03] MEDS: Ringers Lactate 1,000 ML IV SCH (22:36)
[2022-04-03] MEDS ORDERED: ATORVASTATIN 40 MG TAB ONE (22:36)
[2022-04-03] MEDS: MORPHINE 2 MG/ML SYR IV PRN (22:37)
[2022-04-03] MEDS: ONDANSETRON 4 MG/2 ML VIAL IV PRN (22:51)
[2022-04-03] MEDS ORDERED: ONDANSETRON 4 MG/2 ML VIAL ONE (22:53)
[2022-04-04] MEDS ORDERED: ONDANSETRON 4 MG/2 ML VIAL ONE (04:27)
[2022-04-04] MEDS ORDERED: MORPHINE 2 MG/ML SYR ONE (04:27)
[2022-04-04 04:31] LABS: Absolute Lymphocytes (CBC) 1.8 K/uL (0.7-4.9); Hematocrit 40.9 % (36.0-45.0); Lymphocytes % 11.5 % (15.3-44.8); MCV 83.2 fL (80-100); RBC Red Blood Cell Count 4.92 M/uL (3.86-4.86)
[2022-04-04] MEDS: ONDANSETRON 4 MG/2 ML VIAL IV PRN ×3 (04:31→18:04)
[2022-04-04] MEDS: MORPHINE 2 MG/ML SYR IV PRN ×3 (04:31→18:04)
[2022-04-04 04:47] LABS: Albumin 3.2 g/dL (3.4-5.0); Bilirubin Total 0.3 mg/dL (0.2-1.0); Potassium 3.9 mmol/L (3.5-5.1); Protein, Total 6.8 g/dL (6.4-8.2); Troponin High Sensitivity 24.1 pg/mL (<58.9)
[2022-04-04] MEDS: METOPROLOL TAR 25 MG TAB PO SCH ×2 (06:06→18:00)
[2022-04-04] MEDS: ASPIRIN EC 81 MG TAB PO SCH (08:45)
[2022-04-04] MEDS: CLOPIDOGREL 75 MG TABLET PO SCH (08:45)
[2022-04-04] MEDS: ENOXAPARIN 40 MG/0.4 ML SQ SCH (08:45)
[2022-04-04] MEDS ORDERED: POTASSIUM CL SA 10 MEQ TAB PO ONE (09:00)
[2022-04-04] MEDS: Ringers Lactate 1,000 ML IV SCH (10:20)
--- NOTE | 2022-04-04 14:57 | CON ---
Date of Consultation: 04/04/2022 Reason For Consultation: Chest pain. History Of Present Illness: A 61-year-old female with history of hypertension, dyslipidemia, coronar y artery disease, COPD, active smoker, presented with chest pain. It is more in the back side and ra diates to the chest and she claims that the pain is similar to the pain that she had when she had her heart attack in the past. She has shortness of breath and wheezing and no cough. Past Medical History: As outlined above in the HPI. Medications: Refer to reconciliation sheet for detailed list. Allergies: MEPERIDINE. Family History: No premature coronary artery disease or cancer. Social History: She smokes a pack per day. Does not drink or use any drugs. Review of Systems: All systems reviewed and they were negative except what mentioned in HPI. Physical Examination: Vital Signs: Reviewed. Head and Neck: Pupils are equal, reactive to light. Intact eye movements. No JVD. No cervical lym phadenopathy. Neck is supple. Thyroid is not enlarged. Lungs: Decreased breathing sounds with scattered wheezing. No accessory muscle use or muscle retrac tion. Heart: Regular rate and rhythm. No extra sounds. Abdomen: Soft, nontender. Bowel sounds positive. No organomegaly. No masses or hernia. No rigidi ty or rebound. Extremities: No edema, clubbing, or cyanosis. Intact pulses. Skin: No rash. Neurologic: Alert, awake, oriented x3. No acute focal deficits appreciated. Investigations: Cardiac enzymes are negative. BUN 14, creatinine 0.8, hemoglobin is 13.6. Assessment And Recommendations: 1.Chest pain. She claims that it is similar to the pain that she had when she had her heart attack in the past. Cardiac enzymes are negative. She was assured that there was no myocardial infarction; however, recommend exercise stress test and an echocardiogram and further recommendation to follow a ccordingly. The patient was counseled against smoking in details. 2.Smoker. The patient was encouraged and counseled to quit smoking immediately. SR/MODL Voice ID: [id number] Report ID: [id number]
--- NOTE | 2022-04-04 16:03 | EKG ---
Test Date: 2022-04-04 Test Time: 06:15:41 Hand Stamper: ARNOLD MEASUREMENT RESULTS: Intervals: Rate: 86 AK: 202 QRSD: 112 QT: 402 QTc: 481 [place]: P: 68 AK: 202 QRS: 62 T: 48 INTERPRETIVE STATEMENTS: Normal sinus rhythm Incomplete right bundle branch block Borderline ECG Compared to ECG 04/03/2022 18:42:48 No significant changes Electronically Signed On 04-04-22 16:02:54 SPECIAL NEEDS CHILD CAREGIVER by Tono Ponce
--- NOTE | 2022-04-04 16:05 | EKG ---
Test Date: 2022-04-03 Test Time: 18:42:24 Capacity Analyst: GIUSEPPE MEASUREMENT RESULTS: Intervals: Rate: 91 ME: 200 QRSD: 104 QT: 384 QTc: 472 [place]: P: 61 ME: 200 QRS: 21 T: 34 INTERPRETIVE STATEMENTS: Normal sinus rhythm Incomplete right bundle branch block Inferior infarct, age undetermined Abnormal ECG Compared to ECG 04/03/2022 16:13:17 Sinus tachycardia no longer present Atrial premature complex(es) no longer present Myocardial infarct finding still present Electronically Signed On 04-04-22 16:04:03 FIBER OPTIC ASSEMBLER by Tono Ponce
--- NOTE | 2022-04-04 16:05 | EKG ---
Test Date: 2022-04-03 Test Time: 18:42:48 Programs Director: GIUSEPPE MEASUREMENT RESULTS: Intervals: Rate: 91 CO: 202 QRSD: 92 QT: 364 QTc: 447 [place]: P: 64 CO: 202 QRS: 47 T: 46 INTERPRETIVE STATEMENTS: Normal sinus rhythm Incomplete right bundle branch block Borderline ECG Compared to ECG 04/03/2022 18:42:24 Myocardial infarct finding no longer present Electronically Signed On 04-04-22 16:04:01 PUBLIC DEFENDER by Tono Ponce
[2022-04-04] MEDS: ATORVASTATIN 40 MG TAB PO SCH (20:47)
[2022-04-04 22:47] LABS: Urine Bilirubin NEGATIVE (Negative); Urine Blood Negative (Negative); Urine Clarity Clear (Clear); Urine Color Colorless (Yellow); Urine Glucose NEGATIVE (Negative); Urine Protein NEGATIVE (Negative); Urine Urobilinogen Normal (Normal); Urine pH 5.5 (5.0-7.0)
[2022-04-05] MEDS: MORPHINE 2 MG/ML SYR IV PRN ×4 (00:09→22:43)
[2022-04-05] MEDS: ONDANSETRON 4 MG/2 ML VIAL IV PRN ×4 (00:09→22:42)
[2022-04-05] MEDS ORDERED: ACETAMINOPHEN 325 MG TABLET PO PRN (02:45)
[2022-04-05] MEDS: Ringers Lactate 1,000 ML IV SCH (03:14)
[2022-04-05] MEDS: METOPROLOL TAR 25 MG TAB PO SCH ×2 (05:34→17:44)
[2022-04-05 06:48] LABS: Hematocrit 36.6 % (36.0-45.0); Lymphocytes % 34.3 % (15.3-44.8); MCV 83.3 fL (80-100); MPV 8.6 fL (7.6-11.3); RBC Red Blood Cell Count 4.39 M/uL (3.86-4.86)
[2022-04-05 07:14] LABS: Albumin 3.1 g/dL (3.4-5.0); Bilirubin Total 0.3 mg/dL (0.2-1.0); Protein, Total 6.3 g/dL (6.4-8.2)
[2022-04-05] MEDS: ASPIRIN EC 81 MG TAB PO SCH (08:25)
[2022-04-05] MEDS: ENOXAPARIN 40 MG/0.4 ML SQ SCH (08:25)
--- NOTE | 2022-04-05 08:25 | PN ---
Date of Progress Note: 04/05/2022 Subjective: Seen by bedside. Doing clinically well. No further chest pain at rest. Review of Systems: No chest pain, shortness of breath, orthopnea, cough. No nausea, vomiting, diarrhea. All other syst ems reviewed and they were negative. Physical Examination: Vital Signs: Reviewed. Head and Neck: Pupils are equal, reactive to light. Intact eye movements. No JVD. No cervical lym phadenopathy. Neck is supple. Thyroid is not enlarged. Lungs: Clear to auscultation bilaterally. No rhonchi, wheezing, or crackles. No accessory muscle u se. Heart: Regular rate and rhythm. No extra sounds. Abdomen: Soft, nontender. Bowel sounds positive. No organomegaly. No masses or hernia. No rigidi ty or rebound. Extremities: No edema, clubbing, or cyanosis. Intact pulses. Skin: No rash. Neurologic: Alert, awake, oriented x3. No acute focal deficits appreciated. Investigations: Labs were reviewed. Assessment And Recommendations: Chest pain. Could be unstable angina. Await on stress test and ech ocardiogram today. SR/MODL Voice ID: [id number] Report ID: [id number]
[2022-04-05] MEDS: CLOPIDOGREL 75 MG TABLET PO SCH (08:26)
[2022-04-05 08:45] LABS: Magnesium 2.2 mg/dL (1.6-2.4); Thyroid Stimulating Hormone 1.36 uIU/mL (0.358-3.740)
[2022-04-05 09:38] LABS: Folic Acid, (Folate) 18.8 ng/mL (3.1-17.5)
--- NOTE | 2022-04-05 12:32 | RAD REPORT ---
EXAM DESCRIPTION: NM - Rest Stress Cardiac Imaging - 04/05/2022 12:22 pm CLINICAL HISTORY: unstable angina Chest pain. COMPARISON: REST STRESS CARDIAC dated 08/29/2012 TECHNIQUE: The patient was administered approximately 10mCi of Tc 99m Sestamibi prior to resting SPE CT imaging of the heart. The patient was then administered approximately 30 mCi of Tc 99m Sestamibi f ollowing exercise or pharmacologic stress. Multiplanar SPECT images were reviewed. FINDINGS: There is mild stress-induced ischemia likely present involving the anterior wall. In addit ion, there is diminished radiopharmaceutical accumulation along the inferior wall extending to the ap ex which is probably related to previous infarction. The end diastolic volume is 69 ml, the end systolic volume is 25 ml, and the ejection fraction is 64 %. IMPRESSION: Mild stress-induced ischemia suspected involving the left ventricular anterior wall. Changes related to previous infarct suspected along the inferior wall extending to the apex.
--- NOTE | 2022-04-05 14:25 | ECHO ---
HEIGHT: 5 ft 2 in WEIGHT: 170 lb 0 oz DATE OF STUDY: 04/05/[address]: Tono Ponce 2-DIMENSIONAL: YES M.MODE: YES DOPPLER: YES COLOR FLOW: YES TDS: YES PORTABLE: YES DEFINITY: BUBBLE STUDY: DIAGNOSIS: CHEST PAIN CARDIAC HISTORY: CATHERIZATION: SURGERY: PROSTHETIC VALVE: PACEMAKER: MEASUREMENTS (cm) DIASTOLIC (NORMALS) SYSTOLIC (NORMALS) IVSd 1.4 (0.6-1.2) LA Diam 3.6 (1.9-4.0) LVEF 61% LVIDd 2.9 (3.5-5.7) LVIDs 2.0 (2.0-3.5) %FS 31% LVPWd 1.3 (0.6-1.2) Ao Diam 2.6 (2.0-3.7) 2 DIMENSIONAL ASSESSMENT: RIGHT ATRIUM: NORMAL LEFT ATRIUM: NORMAL RIGHT VENTRICLE: NORMAL LEFT VENTRICLE: NORMAL TRICUSPID VALVE: MILD TRICUSPID REGURGITATION MITRAL VALVE: MILD MITRAL REGURGITATION PULMONIC VALVE: NORMAL AORTIC VALVE: NORMAL PERICARDIAL EFFUSION: TRACE AORTIC ROOT: NORMAL LEFT VENTRICULAR WALL MOTION: NORMAL DOPPLER/COLOR FLOW: SEE BELOW COMMENTS: 1. NORMAL LEFT VENTRICULAR EJECTION FRACTION 55-60% 2. NORMAL WALL MOTION 3. MILD TRICUSPID REGURGITATION 4. MILD MITRAL REGURGITATION TECHNOLOGIST: ASTER YI
--- NOTE | 2022-04-05 14:35 | P.PN ---
Subjective Date of Service: 04/04/22 Patient is still having some back pain. Symptoms really have not improved much. Plan to do an echocardiogram and a stress test but they are not available today so we will do it in the morning. Review of Systems 10-point ROS is otherwise unremarkable Physical Examination - Vital Signs Temperature: 97.3 F Blood Pressure: 143/69 Pulse: 63 Respirations: 16 Pulse Ox (%): 95 - Physical Exam General: Alert, In no apparent distress, Oriented x3 Respiratory: Clear to auscultation bilaterally, Normal air movement Cardiovascular: Regular rate/rhythm, Normal S1 S2, No murmurs Gastrointestinal: Normal bowel sounds, Soft and benign, Non-distended, No tenderness Musculoskeletal: No clubbing, No swelling, No tenderness Neurological: Sensation intact, Cranial nerves 3-12 intact - Studies Medications List Reviewed: Yes Assessment & Plan - Problems (Diagnosis) (1) Chest pain, rule out acute myocardial infarction Current Visit: Yes Status: Acute (2) History of UTI Current Visit: Yes Status: Acute (3) History of hypertension Current Visit: Yes Status: Acute - Plan -High-sensitivity troponin elevated -Cardiology consultation appreciated -Echocardiogram and stress test today -Lipid profile pending -check Ua and thyroid and cortisol study - Advance Directives Does patient have a Living Will: Yes Does patient have a Durable POA for Healthcare: Yes
--- NOTE | 2022-04-05 14:42 | P.PN ---
Date of Service: 04/05/22 Subjective Patient's stress test revealed some reversible ischemia in the anterior wall of the myocardium. We will discuss the case with cardiology. Patient may need cardiac catheterization during hospitalization. We may be able to do this as an outpatient as well. We will discuss this further with cardiology. Review of Systems 10-point ROS is otherwise unremarkable Physical Examination - Vital Signs reviewed - Physical Exam General: Alert, In no apparent distress, Oriented x3 Respiratory: Clear to auscultation bilaterally, Normal air movement Cardiovascular: Regular rate/rhythm, Normal S1 S2, No murmurs Gastrointestinal: Normal bowel sounds, Soft and benign, Non-distended, No tenderness Musculoskeletal: No clubbing, No swelling, No tenderness Neurological: Sensation intact, Cranial nerves 3-12 intact - Studies Medications List Reviewed: Yes Assessment & Plan - Problems (Diagnosis) (1) Chest pain, rule out acute myocardial infarction Current Visit: Yes Status: Acute (2) History of UTI Current Visit: Yes Status: Acute (3) History of hypertension Current Visit: Yes Status: Acute (4) Adrenal insufficiency Current Visit: Yes Status: Acute - Plan -Stress test shows some mild reversible ischemia. Will discuss with cardiology regarding further plan of care -High-sensitivity troponin elevated -Cardiology consultation appreciated -Echocardiogram and stress test today -Lipid profile reviewed -Ua was negative and thyroid WNL but cortisol levels were low; start hydrocortisone and outpt follow-up with Endocrinology - Advance Directives Does patient have a Living Will: Yes Does patient have a Durable POA for Healthcare: Yes
[2022-04-05] MEDS: ATORVASTATIN 40 MG TAB PO SCH (21:22)
[2022-04-06] MEDS: ONDANSETRON 4 MG/2 ML VIAL IV PRN ×4 (04:53→23:16)
[2022-04-06] MEDS: MORPHINE 2 MG/ML SYR IV PRN ×4 (04:53→23:16)
[2022-04-06] MEDS: METOPROLOL TAR 25 MG TAB PO SCH ×2 (05:02→17:07)
--- NOTE | 2022-04-06 07:04 | TREADMILL ---
70% H.R.: 111 85% H.R.: 135 90% H.R.: 143 100% H.R.: 159 DX: UNSTABLE ANGINA Date of Study: 04/05/2022 Ht: 5' 2 " Wt: 170 lb 0 oz Consulting Physician: MANJU MEDICATIONS: HISTORY: ASTHMA PHYSICIAL EXAMINATION: RESTING B.P.: 122/84 RESTING H.R.: 66 RESTING EKG: WITHIN NORMAL LIMITS, T WAVE DEPRESSION IN ANTERIOR LEADS PROTOCOL: AdSparxVIEW EXERCISE TIME: 5:15 MAXIMUM HEART RATE: 136 87 % OF PREDICTED B.P. AT PEAK STRESS: 162/92 H.R. AT 1 MINUTE POST EXERCISE: 120 IMPRESSION: TREADMILL STRESS TEST STARTED, GOAL HEART RATE MET, CARDIOLITE INJECTED. NO VENTRICULAR TACHYCARDIA/ SUPRAVENTRICULAR TACHYCARDIA. NO ARRHYTHMIAS NOTED. COMPLAINTS OF SHORTNESS OF BREATH. NO ELECTROCARDIOGRAM CHANGES OF ISCHEMIA. POOR ELECTROCARDIOGRAM AT PEAK STRESS.
[2022-04-06] MEDS: ASPIRIN EC 81 MG TAB PO SCH (09:13)
[2022-04-06] MEDS: CLOPIDOGREL 75 MG TABLET PO SCH (09:13)
--- NOTE | 2022-04-06 19:54 | PN ---
Date of Progress Note: 04/06/2022 Subjective: Seen by bedside. No chest pain today, shortness of breath has improved. Review of Systems: No nausea, vomiting, diarrhea. No abdominal pain. No dysuria, polyuria, or urinary urgency. She holley s no chest pain. Has shortness of breath on exertion. All other systems reviewed are negative. Physical Examination: Vital Signs: Reviewed. Head and Neck: Pupils are equal, reactive to light. Intact eye movements. No JVD. No cervical lym phadenopathy. Neck is supple. Thyroid is not enlarged. Lungs: Clear to auscultation bilaterally with decreased breathing sounds. No accessory muscle use o r muscle retraction. Heart: Regular rate and rhythm. No extra sounds. Abdomen: Soft, nontender. Bowel sounds positive. No organomegaly. No masses or hernia. No rigidi ty or rebound. Extremities: No edema, clubbing, cyanosis. Intact pulses. Skin: No rash. Neurologic: Alert, awake, oriented x3. No acute focal deficits appreciated. Investigations: Stress test showed stress-induced ischemia in the LAD territory and ejection fractio n is normal. Assessment And Recommendations: Chest pain with abnormal stress test suggestive of unstable angina. Keep n.p.o. past midnight. Plan for coronary angiogram tomorrow. SR/MODL Voice ID: [id number] Report ID: [id number]
[2022-04-06] MEDS: ATORVASTATIN 40 MG TAB PO SCH (20:53)
[2022-04-07] MEDS: METOPROLOL TAR 25 MG TAB PO SCH ×2 (06:00→18:32)
[2022-04-07] MEDS: ASPIRIN EC 81 MG TAB PO SCH (06:22)
[2022-04-07] MEDS: CLOPIDOGREL 75 MG TABLET PO SCH (06:23)
[2022-04-07] MEDS: MORPHINE 2 MG/ML SYR IV PRN ×2 (06:24→17:42)
[2022-04-07] MEDS: ONDANSETRON 4 MG/2 ML VIAL IV PRN ×2 (06:24→17:43)
[2022-04-07 06:30] LABS: Absolute Lymphocytes (CBC) 4.2 K/uL (0.7-4.9); Hematocrit 42.6 % (36.0-45.0); Lymphocytes % 24.2 % (15.3-44.8); MCV 84.5 fL (80-100); MPV 8.5 fL (7.6-11.3); RBC Red Blood Cell Count 5.04 M/uL (3.86-4.86)
[2022-04-07 06:46] LABS: Potassium 4.2 mmol/L (3.5-5.1)
--- NOTE | 2022-04-07 13:56 | PN ---
Date of Progress Note: 04/07/2022 Subjective: Seen by bedside. Doing well. Review of Systems: No chest pain, shortness of breath or cough. No nausea, vomiting, diarrhea. All other systems revie wed and they were negative. Physical Examination: Vital Signs: Reviewed. Head and Neck: Pupils are equal, reactive to light. Intact eye movements. No JVD. No cervical lym phadenopathy. Neck is supple. Thyroid is not enlarged. Lungs: Clear to auscultation bilaterally. No rhonchi, wheezing, or crackles. No accessory muscle u se. Heart: Regular rate and rhythm. No extra sounds. Abdomen: Soft, nontender. Bowel sounds positive. No organomegaly. No masses or hernia. No rigidi ty or rebound. Extremities: No edema, clubbing, or cyanosis. Intact pulses. Skin: No rash. Neurologic: Alert, awake. No acute focal deficits appreciated. Investigations: Labs were reviewed. Assessment And Recommendations: Unstable angina, positive stress test. Plan for coronary angiogram today. Further recommendations to follow accordingly. /ANDRAE Voice ID: [id number] Report ID: [id number]
[2022-04-07] MEDS ORDERED: NA CHLORIDE 0.9% 500 ML ONE (15:05)
[2022-04-07] MEDS ORDERED: HEPARIN 5000 UNIT/ML 1 ML VIAL ONE (16:36)
[2022-04-07] MEDS ORDERED: MIDAZOLAM HCL 2 MG/2 ML INJ ONE (16:36)
[2022-04-07] MEDS ORDERED: VERAPAMIL HCL 10 MG/4 ML VIAL IV ONE (16:36)
[2022-04-07] MEDS ORDERED: HEPA 1000U/500MLS 0 UNIT/0 ML BAG IV ONE (16:36)
[2022-04-07] MEDS ORDERED: FENTANYL CITR 100 MCG/2 ML ONE (16:36)
[2022-04-07] MEDS ORDERED: ATROPINE SULF 1 MG/10 ML SYR IV ONE (16:37)
[2022-04-07] MEDS ORDERED: LIDOCAINE 1% MPF 30 ML VIAL ONE (16:37)
[2022-04-07] MEDS ORDERED: HEPARIN 10,000 UNIT/10 ML VIAL IV ONE (16:37)
[2022-04-07] MEDS ORDERED: ONDANSETRON 4 MG/2 ML VIAL ONE (17:32)
[2022-04-07] MEDS ORDERED: MORPHINE 4 MG/ML SYR ONE (17:33)
--- NOTE | 2022-04-07 17:54 | EKG ---
Test Date: 2022-04-03 Test Time: 16:01:24 Scalp Treatment Specialist: KASH MEASUREMENT RESULTS: Intervals: Rate: 128 CO: 142 QRSD: 114 QT: 364 QTc: 531 [place]: P: 27 CO: 142 QRS: -33 T: 64 INTERPRETIVE STATEMENTS: Sinus tachycardia Left axis deviation Inferior-posterior infarct, age undetermined Anterolateral infarct, age undetermined Abnormal ECG Compared to ECG 02/07/2021 21:09:18 Left-axis deviation now present Myocardial infarct finding now present Sinus rhythm no longer present Incomplete right bundle-branch block no longer present Electronically Signed On 04-07-22 17:47:50 DAMAGE INSIDE ADJUSTER by Tono Ponce
--- NOTE | 2022-04-07 17:54 | EKG ---
Test Date: 2022-04-03 Test Time: 16:13:17 Metal Bonding Helper: KASH MEASUREMENT RESULTS: Intervals: Rate: 116 RI: 164 QRSD: 106 QT: 340 QTc: 472 [place]: P: 41 RI: 164 QRS: -7 T: 47 INTERPRETIVE STATEMENTS: Sinus tachycardia with premature atrial complexes Incomplete right bundle branch block Inferior infarct, age undetermined Anterolateral infarct, age undetermined Abnormal ECG Compared to ECG 04/03/2022 16:01:24 Atrial premature complex(es) now present Incomplete right bundle-branch block now present Left-axis deviation no longer present Myocardial infarct finding still present Electronically Signed On 04-07-22 17:47:47 MARINE TECHNICIAN by Tono Ponce
[2022-04-07] MEDS: ATORVASTATIN 40 MG TAB PO SCH (20:04)
[2022-04-08] MEDS: MORPHINE 2 MG/ML SYR IV PRN ×2 (01:05→11:24)
[2022-04-08] MEDS: ONDANSETRON 4 MG/2 ML VIAL IV PRN ×2 (01:06→11:24)
[2022-04-08] MEDS: CLOPIDOGREL 75 MG TABLET PO SCH (05:45)
[2022-04-08] MEDS: METOPROLOL TAR 25 MG TAB PO SCH (05:45)
[2022-04-08] MEDS: ASPIRIN EC 81 MG TAB PO SCH (05:45)
[2022-04-08] MEDS ORDERED: FENTANYL CITR 100 MCG/2 ML ONE ×2 (06:36→09:33)
[2022-04-08] MEDS ORDERED: MIDAZOLAM HCL 2 MG/2 ML INJ ONE ×2 (06:36→07:44)
[2022-04-08] MEDS ORDERED: HEPA 1000U/500MLS 2,000 UNIT/1,000 ML BAG IV ONE (06:36)
[2022-04-08] MEDS ORDERED: HEPARIN 5000 UNIT/ML 1 ML VIAL ONE (06:36)
[2022-04-08] MEDS ORDERED: TICAGRELOR 90 MG TABLET PO ONE (06:37)
[2022-04-08] MEDS ORDERED: VERAPAMIL HCL 10 MG/4 ML VIAL IV ONE (06:37)
[2022-04-08] MEDS ORDERED: CLOPIDOGREL 75 MG TABLET ONE (06:37)
[2022-04-08] MEDS ORDERED: HEPARIN 10,000 UNIT/10 ML VIAL IV ONE (06:37)
[2022-04-08] MEDS ORDERED: ASPIRIN 325 MG TAB ONE (06:37)
[2022-04-08] MEDS ORDERED: ATROPINE SULF 1 MG/10 ML SYR IV ONE (06:38)
[2022-04-08] MEDS ORDERED: LIDOCAINE 1% MPF 30 ML VIAL ONE (06:38)
[2022-04-08] MEDS ORDERED: NA CHLORIDE 0.9% 500 ML ONE (06:55)
--- NOTE | 2022-04-08 07:41 | RAD REPORT ---
EXAM DESCRIPTION: RAD - Chest Single View - 04/08/2022 5:17 am CLINICAL HISTORY: pneumonia COMPARISON: Portable 04/03/2022 TECHNIQUE: AP portable chest image was obtained 04/08/2022 5:17 am . FINDINGS: No new or progressive lung parenchymal process seen. Interstitial pattern is mildly promin ent, believed to be baseline. Heart and vasculature are normal. No measurable pleural effusion and no pneumothorax. No acute bony abnormality seen. No acute aortic findings suspected. IMPRESSION: No new or progressive cardiopulmonary finding. No significant failure or volume overload findings identifiable.
--- NOTE | 2022-04-08 10:26 | P.PN ---
Date of Service: 04/06/22 Subjective Patient's stress test revealed some reversible ischemia in the anterior wall of the myocardium. Cardiology to see the patient later today. Plan to do cardiac catheterization in a.m. Review of Systems 10-point ROS is otherwise unremarkable Physical Examination - Vital Signs reviewed - Physical Exam General: Alert, In no apparent distress, Oriented x3 Respiratory: Clear to auscultation bilaterally, Normal air movement Cardiovascular: Regular rate/rhythm, Normal S1 S2, No murmurs Gastrointestinal: Normal bowel sounds, Soft and benign, Non-distended, No tenderness Musculoskeletal: No clubbing, No swelling, No tenderness Neurological: Sensation intact, Cranial nerves 3-12 intact - Studies Medications List Reviewed: Yes Assessment & Plan - Problems (Diagnosis) (1) Chest pain, rule out acute myocardial infarction Current Visit: Yes Status: Acute (2) History of UTI Current Visit: Yes Status: Acute (3) History of hypertension Current Visit: Yes Status: Acute (4) Adrenal insufficiency Current Visit: Yes Status: Acute - Plan -Stress test shows some mild reversible ischemia. Plan for cardiac catheterization in a.m. Will discuss with cardiology regarding further plan of care -High-sensitivity troponin elevated -Cardiology consultation appreciated -Echocardiogram and stress test today -Lipid profile reviewed -Ua was negative and thyroid WNL but cortisol levels were low; start hydrocortisone and outpt follow-up with Endocrinology - Advance Directives Does patient have a Living Will: Yes Does patient have a Durable POA for Healthcare: Yes
--- NOTE | 2022-04-08 10:28 | P.PN ---
Date of Service: 04/07/22 Subjective Patient's cardiac catheterization scheduled for tomorrow morning actually. Otherwise no symptoms. Continue with plan of care as mentioned. Review of Systems 10-point ROS is otherwise unremarkable Physical Examination - Vital Signs reviewed - Physical Exam General: Alert, In no apparent distress, Oriented x3 Respiratory: Clear to auscultation bilaterally, Normal air movement Cardiovascular: Regular rate/rhythm, Normal S1 S2, No murmurs Gastrointestinal: Normal bowel sounds, Soft and benign, Non-distended, No tenderness Musculoskeletal: No clubbing, No swelling, No tenderness Neurological: Sensation intact, Cranial nerves 3-12 intact - Studies Medications List Reviewed: Yes Assessment & Plan - Problems (Diagnosis) (1) Chest pain, rule out acute myocardial infarction Current Visit: Yes Status: Acute (2) History of UTI Current Visit: Yes Status: Acute (3) History of hypertension Current Visit: Yes Status: Acute (4) Adrenal insufficiency Current Visit: Yes Status: Acute - Plan -Stress test shows some mild reversible ischemia. Plan for cardiac cat heterization in a.m. Will discuss with cardiology regarding further plan of care -High-sensitivity troponin elevated -Cardiology consultation appreciated -Echocardiogram and stress test today -Lipid profile reviewed -Ua was negative and thyroid WNL but cortisol levels were low; start hydrocortisone and outpt follow-up with Endocrinology - Advance Directives Does patient have a Living Will: Yes Does patient have a Durable POA for Healthcare: Yes
[2022-04-08 11:17] LABS: Absolute Lymphocytes (CBC) 3.2 K/uL (0.7-4.9); Hematocrit 38.9 % (36.0-45.0); Lymphocytes % 27.6 % (15.3-44.8); MPV 8.4 fL (7.6-11.3); RBC Red Blood Cell Count 4.63 M/uL (3.86-4.86)
[2022-04-08 11:39] LABS: Albumin 3.1 g/dL (3.4-5.0); Bilirubin Total 0.6 mg/dL (0.2-1.0); Magnesium 2.3 mg/dL (1.6-2.4); Phosphorus 3.3 mg/dL (2.5-4.9); Potassium 3.9 mmol/L (3.5-5.1); Protein, Total 6.5 g/dL (6.4-8.2)
[2022-04-08 12:16] VITALS: BP 124/58; TEMP 96.8
[2022-04-08 13:17] VITALS: O2SAT 98
[2022-04-08] MEDS ORDERED: ACETAMINOPHEN 325 MG TABLET PO PRN (13:33)
[2022-04-08] MEDS ORDERED: NITROGLYCERIN 0.4 MG/TAB SL PRN (13:33)
[2022-04-08] MEDS ORDERED: NA CHLORIDE 0.9% 1,000 ML IV SCH (14:00)
--- NOTE | 2022-04-08 17:51 | OP ---
Date of Procedure: 04/08/2022 Surgeon: SEAN NUNES Procedures Performed: 1.Selective coronary angiogram. 2.Left heart catheterization. Indication: Chest pain with abnormal stress test. Access: Right radial artery 6-Jamaican closed with TR band. Complications: None. Bleeding: Less than 10 mL. Description Of Procedure: After risks, benefits, alternatives were explained, patient agreed to proc edure and signed informed consent. Patient was brought into the cardiac catheterization laboratory, prepped and draped in usual sterile fashion. Then, I accessed right radial artery using pediatric mi cropuncture kit, placed 6-Jamaican Slender sheath and took 5-Jamaican Capron 4.0 catheter into the aortic root, engaged left main and right coronary artery and then catheter was pushed over the wire into th e LV, measured the LVEDP and pullback did not record include any gradient. Then, removed the cathete r and the sheath, placed TR band with good hemostasis. Findings: 1.Left main: Normal. 2.LAD: Moderate-sized vessel. It is normal. Diagonal 1 branch is normal. Diagonal 2 branch is sm all vessel, less than 2 mm and has a proximal 70% to 80% stenosis. 3.Circumflex: Very small and nondominant, has mid 50% stenosis. 4.RCA: Large and dominant, has proximal 40% stenosis and mid 20% stenosis and then normal vessel. 5.LVEDP elevated at 20 mmHg. Conclusion: 1.Severe diagonal 2 branch stenosis, but it is a small vessel less than 2 mm. 2.Gzyk-eh-psldyysh coronary artery disease elsewhere. Plan: Aggressive cardiac risk factor modification, medical management. SR/MODL Voice ID: [id number] Report ID: [id number]
== END 2022-04-08 15:34 | disposition home or self-care (01) | DRG 287 ==
LOC: ER 15:55 → ERHOLD 19:24 → 2ND 20:08 → OBSVTOIN 04-04 09:24
PROVIDERS: ADMIT Hospitalist; ATTEND Hospitalist
PROC: 4A023N7 Measurement of Cardiac Sampling and Pressure, Left Heart, Percutaneous Approach (ICD-10-PCS; principal; 2022-04-08)
PROC: B2111ZZ Fluoroscopy of Multiple Coronary Arteries using Low Osmolar Contrast (ICD-10-PCS; 2022-04-08)
DX: I25.110 Atherosclerotic heart disease of native coronary artery with unstable angina pectoris (principal); E27.40 Unspecified adrenocortical insufficiency; E87.6 Hypokalemia; E78.5 Hyperlipidemia, unspecified; I10 Essential (primary) hypertension; J44.9 Chronic obstructive pulmonary disease, unspecified; D72.829 Elevated white blood cell count, unspecified; I25.2 Old myocardial infarction; F17.210 Nicotine dependence, cigarettes, uncomplicated; R73.9 Hyperglycemia, unspecified; Z88.8 Allergy status to other drugs, medicaments and biological substances; Z71.6 Tobacco abuse counseling; Z95.5 Presence of coronary angioplasty implant and graft; Z79.82 Long term (current) use of aspirin; Z79.02 Long term (current) use of antithrombotics/antiplatelets; Z79.899 Other long term (current) drug therapy; Z90.710 Acquired absence of both cervix and uterus; Z91.018 Allergy to other foods; Z20.822 Contact with and (suspected) exposure to COVID-19
CPT/HCPCS: 36415; 71045; 71275; 74175; 76937; 78452; 80048; 80053; 80061; 81003; 82533; 82607; 82746; 83036; 83540; 83690; 83735; 83880; 84100; 84145; 84439; 84443; 84484; 85025; 87086; 87088; 87811; 93005; 93017; 93306; 93458; 96372; 96374; 96375; 99285; A9500; C1893; J0461; J1200; J1644; J1650; J2001; J2250; J2270; J2405; J2930; J3010; J7030; J7040; J7120; J7614; J7644; Q9966; Q9967

== ENCOUNTER 2023-01-23 20:34 | Emergency (ER) | payer OTHER, SELFPAY ==
--- OUTSIDE RECORDS SUMMARY | 2023-01-23 20:37 | XMS REPORT | Continuity of Care Document ---
:1960 Author Organization [facility] t Address [address] [place] [address] Care Team Providers Name Role Phone Saúl Jacksondain Attending Clinician Unavailable KNOW, DOES_NOT Admitting Clinician Unavailable Payers Payer Name Policy Type Policy Number Effective Date Expiration Date S ource Problems This patient has no known problems. Allergies, Adverse Reactions, Alerts Allergy Allergy Status Severity Reaction(s) Onset Inactive Treating Comm ents Source Name Type Date Date Clinician meperidi DA Active CO 2020-0 [facility] ne 3-17 Clear 00:00: [address] meperidi DA Active CO RASH-RAISED 2019-0 [facility] ne 3-17 Clear 00:00: [address] Medications This patient has no known medications. Procedures Procedure Date / Time Performed Performing Clinician Osvaldo salinas [id number] 2019-06-25 00:00:00 [facility] [id number] 2019-06-25 00:00:00 [facility] [id number] 2019-06-25 00:00:00 [facility] [id number] 2019-06-25 00:00:00 [facility] Encounters Start End Encounter Admission Attending Care Care Encounter Source Date/Time Date/Time Type Type Clinicians Facility Department ID 2019-06-25 Inpatient HCAPM MCKENZIE [id number] [facility] 05:35:00 03 [facility] 2019-06-25 2019-06-25 Outpatient YANI Hays OUTD [id number] [facility] 09:11:00 09:11:00 [facility] Results Test Description Test Time Test Comments [...] ALKP) 71 Unit/L 45-117 N CBC W/AUTO [id number] 05:35:00 Test Item Value Reference Range Interpretation [...] = NO DIFF/SCN CRITERIA MDIFF) GLYCOSYLATED HEMOGLOBIN [id number] 06:58:00 Test Item Value Reference Range Interpretation Comments GLYCOSYLATED HEMOGLOBIN (HA1C) 5.1 % A1C 0.0-5.7 N (test code = GLYHGB) ESTIMATED AVERAGE GLUCOSE (test 100 MG/DLest code = EAG) COMPREHENSIVE METABOLIC [id number] 06:48:00 Test Item Value Reference Range Interpretation [...] = LDL/HDL) 4.66 Ratio 1.48-3.22 Avg H [id number] 06:48:00 Test Item Value Reference Range Interpretation Comments PHOSPHOROUS (test code = PHOS) 2.2 MG/DL 2.5-4.9 L [id number] 06:48:00 Test Item Value Reference Range Interpretation Comments MAGNESIUM (test code = MAG) 1.8 MG/DL 1.8-2.4 N CBC W/AUTO [id number] 06:35:00 Test Item Value Reference Range Interpretation [...] = NO DIFF/SCN CRITERIA MDIFF) COAGULATION TIME [id number] 14:53:00 Test Item Value Reference Range Interpretation Comments COAGULATION TIME ACTIVATED (test 142 SECistat 74-125 H code = ACT) - XR CHEST 1 [id number] 10:40:00 Name: [facility] [place] [facility] 1960 Age/S: 58 / F [id number] [address] [facility] Unit #: [id number] Loc: [place] [address] Phys: Ramses Horowitz MD Acct: [id number] Dis Date: Status: ADM IN PHONE #: [phone] Exam Date: 06/25/2019 1005 FAX #: Reason: STEMI EXAMS: CPT: [id number] XR CHEST 1 V [id number] Fluoro Time: DAP (Gy m2): Air Kerma (mGy): EXAM: - XR CHEST 1 V Location code:C3 HISTORY: Follow-up evaluation COMPARISON: 05/27/2019 FINDINGS: Frontal view of the chest is submitted. Heart sizewithin normal limits. Mild pulmonary congestive changes noted. The lungs are clear of focal consolidation. No effusion or evidence of pneumothorax.. No acute osseous pathology. IMPRESSION 1. Mild pulmonary congestive changes. No large effusion. at 1040 Reported and signed by: Ro Fuentes M.D. CC: Ramsse Lara; Alistair Hays MD PAGE 1 Signed Report Name: MARGIE COLLINS [facility] : 1960 Age/S: 58 / F [address] [place] [address] Unit #: [id number] Loc: [place] [address] Phys: Ramses Horowitz MD Acct: [id number] Dis Date: Status: ADM IN PHONE #: [phone] Exam Date: 06/25/2019 100 FAX #: Reason: STEMI EXAMS: CPT: [id number] XR CHEST 1 V [id number] Fluoro Time: DAP (Gy m2): Air Kerma (mGy): (Continued) Technologist: Una Ron, RT(R)(CT) Trnscb Date/Time: 06/25/2019 (0221) [email or web address] Orig Print D/T: S: 06/25/2019 (7019) PAGE 2 Signed ReportCOAGULATION TIME [id number] 07:17:00 Test Item Value Reference Range Interpretation Comments COAGULATION TIME ACTIVATED (test 384 SECistat 74-125 H code = ACT) TROPONIN I [id number] 07:12:00 Test Item Value Reference Range Interpretation [...] iagnosis of myocardial i nfraction. BASIC METABOLIC [id number] 06:22:00 Test Item Value Reference Range Interpretation [...] Unit/L 26-192 N CK) Completed by Nursing: [id number] 06:22:00 Test Item Value Reference Range Interpretation [...] yby method. Completed by Nursing: NOBASIC METABOLIC [id number] 06:03:00 Test Item Value Reference Range Interpretation [...] = CK) Unit/L 26-192 Completed by Nursing: [id number] 06:03:00 Test Item Value Reference Range Interpretation Comments TROPONIN-I (test code = TROPI) NG/ML 0.000-0.045 Completed by Nursing: NOCBC W/O [id number] 05:56:00 Test Item Value Reference Range Interpretation [...] 7.0-10.5 H MPV) - XR CHEST 1 [id number] 05:51:00 Name: MARGIE COLLINS [place] : 1960 Age/S: 58 / F [id number] [place] [address] Unit #: [id number] Loc: [place] [address] Phys: Ilir Bundy MD Acct: [id number] Dis Date: Status: ADM IN PHONE #: [phone] Exam Date: 06/25/2019 0545 FAX #: Reason: chest pain EXAMS: CPT: [id number] XR CHEST 1 V 82731 Fluoro Time: DAP (Gy m2): Air Kerma (mGy): EXAMINATION: - XR CHEST 1 V LOCATION: [facility] INDICATION/CLINICAL HISTORY: chest pain COMPARISON: None. TECHNIQUE: Frontal view of the chest. FINDINGS: Cardiomediastinal silhouette: Mild enlargement of the cardiac silhouette. Pulmonary vasculature: Not congested. Lungs/pleura: No consolidation, pneumothorax or pleural effusion. Upper abdomen: Unremarkable. Regional osseous structures: Intact. IMPRESSION: No acute cardiopulmonary findings. Electro nically Signed by Cat Small on 06/25/2019 at 0551 Reported and signed by: Mason Small M.D. CC: Ilir Bundy MD PAGE 1 Signed Report Name: MARGIE COLLINS [place] : 1960 Age/S: 58 / F [id number] [place] [address] Unit #: [id number] Loc: [place] [address] Phys: Ilir Bundy MD Acct: [id number] Dis Date: Status: ADM IN PHONE #: [phone] Exam Date: 06/25/2019 0520 FAX #: Reason: chest pain EXAMS: CPT: [id number] XR CHEST 1 V 55733 Fluoro Time: DAP (Gy m2): Air Kerma (mGy): (Continued) Technologist: Terry Alvarado RT(R) Trnscb Date/Time: 06/25/2019 (2973) [email or web address] Orig Print D/T: S: 06/25/2019 (1582) PAGE 2 Signed Report
--- NOTE | 2023-01-23 21:15 | RAD REPORT ---
EXAM DESCRIPTION: RAD - Chest Single View - 01/23/2023 9:08 pm CLINICAL HISTORY: COUGH Chest pain. COMPARISON: <Comparisons> FINDINGS: Portable technique limits examination quality. The lungs are emphysematous but grossly clear. The heart is normal in size. No displaced fractures. IMPRESSION: No acute intrathoracic process suspected.
[2023-01-23 21:43] LABS: Absolute Lymphocytes (CBC) 3.5 K/uL (0.7-4.9); Hematocrit 42.9 % (36.0-45.0); Lymphocytes % 22.6 % (15.3-44.8); MCV 83.3 fL (80-100); MPV 8.9 fL (7.6-11.3); Platelets 261 thou/uL (152-406); RBC Red Blood Cell Count 5.14 M/uL (3.86-4.86)
[2023-01-23 21:44] LABS: Protime INR 1.03
[2023-01-23 21:48] LABS: Specific Gravity < 1.005 (1.005-1.030); Urine Bilirubin NEGATIVE (Negative); Urine Blood Negative (Negative); Urine Clarity Clear (Clear); Urine Color Colorless (Yellow); Urine Glucose NEGATIVE (Negative); Urine Protein NEGATIVE (Negative); Urine Urobilinogen Normal (Normal); Urine pH 6.5 (5.0-7.0)
[2023-01-23] MEDS ORDERED: NA CHLORIDE 0.9% 1,000 ML ONE (21:53)
[2023-01-23] MEDS ORDERED: AMLODIPINE 10 MG TAB ONE (21:53)
[2023-01-23 22:04] LABS: ALT/SGPT 16 U/L (13-56); AST/SGOT 10 U/L (15-37); Albumin 3.3 g/dL (3.4-5.0); Alkaline Phosphatase 109 U/L (45-117); BUN Blood Urea Nitrogen 14 mg/dL (7-18); Bicarbonate 27 mEq/L (21-32); Bilirubin Total 0.4 mg/dL (0.2-1.0); Glomerular Filtration Rate 98 ml/min (=/>90); Glucose Level 105 mg/dL (74-106); Magnesium 2.1 mg/dL (1.6-2.4); NT PRO-BNP 321 pg/mL (<125); Potassium 3.2 mEq/L (3.5-5.1); Protein, Total 7.2 g/dL (6.4-8.2); Sodium Level 137 mEq/L (136-145); Troponin High Sensitivity 34.6 pg/mL (<58.9)
[2023-01-23 22:05] LABS: Bilirubin Direct < 0.1 mg/dL (0-0.2); Bilirubin Indirect, Calculated ND mg/dL (0.2-0.8)
--- NOTE | 2023-01-23 22:05 | RAD REPORT ---
EXAM DESCRIPTION: CT - Head Brain Wo Cont - 01/23/2023 9:58 pm CLINICAL HISTORY: HEADACHE Headache, drowsiness COMPARISON: HEAD BRAIN W O CONTRAST dated 08/27/2012; HEAD BRAIN W O CONTRAST dated 01/18/2004 TECHNIQUE: All CT scans are performed using dose optimization technique as appropriate and may inclu de automated exposure control or mA/KV adjustment according to patient size. FINDINGS: No intracranial hemorrhage, hydrocephalus or extra-axial fluid collection.No areas of brai n edema or evidence of midline shift. Mild polypoid mucosal thickening of the maxillary antra. The paranasal sinuses and mastoids are other cr clear. The calvarium is intact. IMPRESSION: No acute intracranial abnormality.
--- NOTE | 2023-01-23 22:43 | EDPHYS ---
Physician Documentation [facility] Name: Idalmis Charles Age: 62 yrs Sex: Female : 1960 Arrival Date: 01/23/2023 Time: 20:34 Bed 8 Private MD: MARILUZ Physician Antony Palacio HPI: 01/23 22:37 This 62 yrs old Female presents to ER via Ambulatory with complaints of High ju Blood Pressure. 22:37 The patient has elevated blood pressure and discovered this at home. Onset: The ju symptoms/episode began/occurred 2 day(s) ago. Modifying factors: The symptoms are aggravated by activity, The symptoms are alleviated by remaining still. Associated signs and symptoms: The patient has no apparent associated signs or symptoms. Severity of symptoms: At its worst the blood pressure was moderate, in the emergency department the blood pressure is improved, moderately. The patient has experienced similar episodes in the past, multiple times. Historical: - Allergies: 20:46 Demerol; nj1 20:46 meperidine HCl; nj1 - PMHx: 20:46 Hyperlipidemia; Hypertensive disorder; Myocardial infarction; nj1 - PSHx: 20:46 Heart Stents; nj1 20:48 Total hysterectomy; Appendectomy; Stented artery; Tonsillectomy; nj1 - Immunization history:: Client reports receiving the 2nd dose of the Covid vaccine. - Social history:: Smoking status: Patient reports the use of cigarette tobacco products, smokes one-half pack cigarettes per day. - Family history:: not pertinent. ROS: 22:37 Constitutional: Negative for fever, chills, and weight loss, Eyes: Negative for injury, ju pain, redness, and discharge, ENT: Negative for injury, pain, and discharge, Neck: Negative for injury, pain, and swelling, Cardiovascular: Negative for chest pain, palpitations, and edema, Respiratory: Negative for shortness of breath, cough, wheezing, and pleuritic chest pain, Abdomen/GI: Negative for abdominal pain, nausea, vomiting, diarrhea, and constipation, Back: Negative for injury and pain, : Negative for injury, bleeding, discharge, and swelling, MS/Extremity: Negative for injury and deformity, Skin: Negative for injury, rash, and discoloration, Psych: Negative for depression, anxiety, suicide ideation, homicidal ideation, and hallucinations, Allergy/Immunology: Negative for hives, rash, and allergies, Endocrine: Negative for neck swelling, polydipsia, polyuria, polyphagia, and marked weight changes, Hematologic/Lymphatic: Negative for swollen nodes, abnormal bleeding, and unusual bruising, 22:37 Neuro: Positive for headache, Exam: 22:37 Constitutional: This is a well developed, well nourished patient who is awake, alert, ju and in no acute distress. Head/Face: Normocephalic, atraumatic. Eyes: Pupils equal round and reactive to light, extra-ocular motions intact. Lids and lashes normal. Conjunctiva and sclera are non-icteric and not injected. Cornea within normal limits. Periorbital areas with no swelling, redness, or edema. ENT: Nares patent. No nasal discharge, no septal abnormalities noted. Tympanic membranes are normal and external auditory canals are clear. Oropharynx with no redness, swelling, or masses, exudates, or evidence of obstruction, uvula midline. Mucous membranes moist. Neck: Trachea midline, no thyromegaly or masses palpated, and no cervical lymphadenopathy. Supple, full range of motion without nuchal rigidity, or vertebral point tenderness. No Meningismus. Chest/axilla: Normal chest wall appearance and motion. Nontender with no deformity. No lesions are appreciated. Cardiovascular: Regular rate and rhythm with a normal S1 and S2. No gallops, murmurs, or rubs. Normal PMI, no JVD. No pulse deficits. Respiratory: Lungs have equal breath sounds bilaterally, clear to auscultation and percussion. No rales, rhonchi or wheezes noted. No increased work of breathing, no retractions or nasal flaring. Abdomen/GI: Soft, non-tender, with normal bowel sounds. No distension or tympany. No guarding or rebound. No evidence of tenderness throughout. Back: No spinal tenderness. No costovertebral tenderness. Full range of motion. Female : Normal external genitalia. Skin: Warm, dry with normal turgor. Normal color with no rashes, no lesions, and no evidence of cellulitis. MS/ Extremity: Pulses equal, no cyanosis. Neurovascular intact. Full, normal range of motion. Neuro: Awake and alert, GCS 15, oriented to person, place, time, and situation. Cranial nerves II-XII grossly intact. Motor strength 5/5 in all extremities. Sensory grossly intact. Cerebellar exam normal. Normal gait. Psych: Awake, alert, with orientation to person, place and time. Behavior, mood, and affect are within normal limits. 22:37 Neck: ROM/movement: is normal, is supple, without pain, no range of motions limitations, no meningismus, no nuchal rigidity, negative Brudzinski's sign, negative Kernig's sign, 22:42 ECG was reviewed by the Attending Physician. [facility] Vital Signs: 20:44 BP 182 / 111; Pulse 89; Resp 18; Temp 98.3(O); Pulse Ox 99% on R/A; Weight 77.11 kg; nj1 Height 5 ft. 2 in. ; 21:30 BP 166 / 99; Pulse 73; Resp 16; Pulse Ox 97% on R/A; jb4 22:30 BP 141 / 97; Pulse 71; Resp 16; Pulse Ox 97% on R/A; jb4 20:44 Body Mass Index 31.09 (77.11 kg, 157.48 cm) nj MDM: 20:57 Patient medically screened. ju 20:58 Patient medically screened. ju 22:39 Differential diagnosis: hypertensive crisis, Malignant HTN, CVA. Data reviewed: vital ju signs, nurses notes, lab test result(s), EKG, radiologic studies, CT scan, plain films. Consideration of Admission/Observation Escalation of care including admission/observation considered. I considered the following discharge prescriptions or medication management in the emergency department Medications were administered in the Emergency Department. See MAR. Independent interpretation of the following test(s) in the Emergency Department EKG: See my EKG interpretation above. Test considered but Not performed: Ultrasound no 2 echo. Care significantly affected by the following chronic conditions: Hypertension, cad, mi, hyperlipids. Counseling: I had a detailed discussion with the patient and/or guardian regarding the historical points, exam findings, and any diagnostic results supporting the discharge/admit diagnosis, the presence of at least one elevated blood pressure reading (>120/80) during this emergency department visit, lab results, radiology results, the need for outpatient follow up, for definitive care, a town administrator, a family practitioner. 01/23 20:59 Order name: Basic Metabolic Panel; Complete Time: 22:36 ju 01/23 20:59 Order name: CBC with Diff; Complete Time: 22:36 [facility] 01/23 20:59 Order name: LFT's; Complete Time: 22:36 [facility] 01/23 20:59 Order name: Magnesium; Complete Time: 22:36 [facility] 01/23 20:59 Order name: NT PRO-BNP; Complete Time: 22:36 [facility] 01/23 20:59 Order name: PT-INR; Complete Time: 22:36 [facility] 01/23 20:59 Order name: Troponin HS; Complete Time: 22:36 [facility] 01/23 21:09 Order name: Urinalysis w/ reflexes; Complete Time: 22:36 [facility] 01/23 20:59 Order name: XRAY Chest (1 view); Complete Time: 22:36 [facility] 01/23 21:08 Order name: CT Head Brain wo Cont; Complete Time: 22:36 [facility] 01/23 20:59 Order name: EKG; Complete Time: 21:00 [facility] 01/23 20:59 Order name: Cardiac monitoring; Complete Time: 21:48 [facility] 01/23 20:59 Order name: EKG - Nurse/Tech; Complete Time: 22:41 [facility] 01/23 20:59 Order name: IV Saline Lock; Complete Time: 21:23 [facility] 01/23 20:59 Order name: Labs collected and sent; Complete Time: 21:23 [facility] 01/23 20:59 Order name: O2 Per Protocol; Complete Time: 21:23 [facility] 01/23 20:59 Order name: O2 Sat Monitoring; Complete Time: 21:23 [facility] EC:42 Rate is 70 beats/min. Rhythm is regular. QRS [place] is Normal. RI interval is normal. QRS ju interval is normal. QT interval is prolonged at 490 msec. No Q waves. T waves are Normal. No ST changes noted. Clinical impression: NSR w/ Non-specific ST/T Changes and No evidence of ischemia. Interpreted by me. Reviewed by me. Administered Medications: 21:47 Drug: Norvasc PO 10 mg PO once Route: PO; jb4 21:48 Drug: NS 0.9% IV 1000 ml IV at 125 ml/hr continuous Route: IV; Rate: 125 ml/hr; Site: [facility] right antecubital; 23:02 Drug: Potassium PO Effervescent Tablet 50 mEq PO once; dissolve in 4 ounces of water or jb4 juice Route: PO; Disposition Summary: 01/23/23 22:41 Discharge Ordered Notes: Location: Home ju Problem: new ju Symptoms: have improved ju Condition: Stable ju Diagnosis - Essential (primary) hypertension ju - Hypokalemia ju - Headache ju - Tobacco abuse counseling ju - Tobacco use ju Followup: ju - With: Private Physician - When: 2 - 3 days - Reason: Recheck today's complaints, Continuance of care, Re-evaluation by your physician Followup: ju - With: Tono Ponce MD - When: 2 - 3 days - Reason: Recheck today's complaints, Re-evaluation by your physician Discharge Instructions: - Discharge Summary Sheet ju - Potassium Content of Foods ju - General Headache Without Cause ju - Hypertension, Adult ju - Steps to Quit Smoking ju - Health Risks of Smoking ju - Hypertension, Adult, [id number] ju - Steps to Quit Smoking, [id number] ju - How to Take Your Blood Pressure, [id number] ju - Aspirin and Your Heart ju - General Headache Without Cause, [id number] ju - Hypokalemia ju - Managing Your Hypertension ju Forms: - Medication Reconciliation Form ju - Thank You Letter ju - Antibiotic Education ju - Prescription Opioid Use ju - Patient Portal Instructions ju - Leadership Thank You Letter ju Prescriptions: - Norvasc 5 mg Oral Tablet - take 1 tablet ORAL route once daily; 20 tablet; Refills: 0, Product Selection ju Permitted Signatures: Dispatcher [employer] Antony Jennings MD MD cha Bryson, James, RN RN jb4 Peggy Mariano RN RN nj1
--- NOTE | 2023-01-23 22:43 | ER ---
Nurse's Notes [facility] Name: Idalmis Charles Age: 62 yrs Sex: Female : 1960 Arrival Date: 01/23/2023 Time: 20:34 Bed 8 Private MD: Diagnosis: Essential (primary) hypertension;Hypokalemia;Headache;Tobacco abuse counseling;Tobacco use Presentation: 01/23 20:44 Chief complaint: Patient states: High blood pressure. Denies chest pain and/or nj1 shortness of breath. Coronavirus screen: Vaccine status: Patient reports receiving the 2nd dose of the covid vaccine. Ebola Screen: Patient denies travel to an Ebola-affected area in the 21 days before illness onset. Initial Sepsis Screen: Does the patient meet any 2 criteria? No. Patient's initial sepsis screen is negative. Does the patient have a suspected source of infection? No. Patient's initial sepsis screen is negative. Risk Assessment: Do you want to hurt yourself or someone else? Patient reports no desire to harm self or others. Onset of symptoms was January 23, 2023. 20:44 Method Of Arrival: Ambulatory nj1 20:44 Acuity: BAR 3 nj1 Historical: - Allergies: 20:46 Demerol; nj1 20:46 meperidine HCl; nj1 - PMHx: 20:46 Hyperlipidemia; Hypertensive disorder; Myocardial infarction; nj1 - PSHx: 20:46 Heart Stents; nj1 20:48 Total hysterectomy; Appendectomy; Stented artery; Tonsillectomy; nj1 - Immunization history:: Client reports receiving the 2nd dose of the Covid vaccine. - Social history:: Smoking status: Patient reports the use of cigarette tobacco products, smokes one-half pack cigarettes per day. - Family history:: not pertinent. Screenin:02 [facility] ED Fall Risk Assessment (Adult) History of falling in the last 3 months, jb4 including since admission No falls in past 3 months (0 pts) Confusion or Disorientation No (0 pts) Score/Fall Risk Level 0 - 2 = Low Risk Oriented to surroundings, Maintained a safe environment. Abuse screen: Denies threats or abuse. Nutritional screening: No deficits noted. Tuberculosis screening: No symptoms or risk factors identified. Assessment: 21:00 General: Appears in no apparent distress. comfortable, Behavior is calm, cooperative, jb4 appropriate for age. Pain: Denies pain. Neuro: Level of Consciousness is awake, alert, obeys commands, Oriented to person, place, time, situation. Cardiovascular: Patient's skin is warm and dry. Respiratory: Airway is patent Respiratory effort is even, unlabored, Respiratory pattern is regular, symmetrical. GI: No signs and/or symptoms were reported involving the gastrointestinal system. : No signs and/or symptoms were reported regarding the genitourinary system. EENT: No signs and/or symptoms were reported regarding the EENT system. Derm: Skin is intact, Skin is pink, warm \T\ dry. Musculoskeletal: Circulation, motion, and sensation intact. Range of motion: intact in all extremities. 22:42 Reassessment: Patient appears in no apparent distress at this time. Patient and/or jb4 family updated on plan of care and expected duration. Pain level reassessed. Patient is alert, oriented x 3, equal unlabored respirations, skin warm/dry/pink. Vital Signs: 20:44 BP 182 / 111; Pulse 89; Resp 18; Temp 98.3(O); Pulse Ox 99% on R/A; Weight 77.11 kg; nj1 Height 5 ft. 2 in. ; 21:30 BP 166 / 99; Pulse 73; Resp 16; Pulse Ox 97% on R/A; jb4 22:30 BP 141 / 97; Pulse 71; Resp 16; Pulse Ox 97% on R/A; jb4 20:44 Body Mass Index 31.09 (77.11 kg, 157.48 cm) [facility] ED Course: 20:38 Patient arrived in ED. 2 20:46 Triage completed. nj1 20:49 Arm band placed on left wrist. nj1 20:57 Antony Palacio MD is Attending Physician. ju 21:10 XRAY Chest (1 view) In Process Unspecified. EDMS 21:37 Terry Mendoza RN is Primary Nurse. 4 22:00 CT Head Brain wo Cont In Process Unspecified. EDMS 22:04 Initial lab(s) drawn, by la, sent to lab. Inserted saline lock: 18 gauge in right jb4 antecubital area, using aseptic technique. Blood collected. 22:41 Tono Ponce MD is Referral Physician. ju 23:02 Patient has correct armband on for positive identification. Bed in low position. Call jb4 light in reach. Side rails up X 1. Client placed on continuous cardiac and pulse oximetry monitoring. NIBP monitoring applied. 23:02 No provider procedures requiring assistance completed. IV discontinued, intact, jb4 bleeding controlled, No redness/swelling at site. Pressure dressing applied. Administered Medications: 21:47 Drug: Norvasc PO 10 mg PO once Route: PO; jb4 21:48 Drug: NS 0.9% IV 1000 ml IV at 125 ml/hr continuous Route: IV; Rate: 125 ml/hr; Site: jb4 right antecubital; 23:02 Drug: Potassium PO Effervescent Tablet 50 mEq PO once; dissolve in 4 ounces of water or jb juice Route: PO; Outcome: 22:41 Discharge ordered by . ju 23:02 Discharged to home ambulatory, with family, [place] 23:02 Condition: stable 23:02 Discharge instructions given to patient, Instructed on discharge instructions, follow up and referral plans. medication usage, Demonstrated understanding of instructions, follow-up care, medications, Prescriptions given X 1, 23:03 Patient left the ED. 4 Signatures: Dispatcher [employer] EDMS Antony Palacio MD MD cha Bryson, James, RN RN jb4 Peggy Mariano, VIKASH RN nj1 Mckenzie Lyons gm2
[2023-01-23] MEDS ORDERED: POTASSIUM 25 MEQ EFFERV TAB ONE (23:01)
[2023-01-23 23:21] VITALS: TEMP 98.3
[2023-01-23 23:22] VITALS: O2SAT 97
[2023-01-23 23:23] VITALS: BP 141/97
--- NOTE | 2023-01-24 11:19 | EKG ---
Test Date: 2023-01-23 Test Time: 22:38:17 Manufacturers Agent: BECKY MEASUREMENT RESULTS: Intervals: Rate: 70 GA: 160 QRSD: 110 QT: 454 QTc: 490 [place]: P: 30 GA: 160 QRS: 60 T: 45 INTERPRETIVE STATEMENTS: Normal sinus rhythm Incomplete right bundle branch block Prolonged QT Abnormal ECG Compared to ECG 04/04/2022 06:15:41 Prolonged QT interval now present Electronically Signed On 01-24-23 11:17:37 CDT by Tono Ponce
== END 2023-01-23 23:03 | disposition home or self-care (01) ==
LOC: ER 20:34
DX: I10 Essential (primary) hypertension (principal); E87.6 Hypokalemia; R51.9 Headache, unspecified; Z72.0 Tobacco use; Z71.6 Tobacco abuse counseling; Z95.818 Presence of other cardiac implants and grafts; Z88.5 Allergy status to narcotic agent; Z88.8 Allergy status to other drugs, medicaments and biological substances
CPT/HCPCS: 36415; 70450; 71045; 80048; 80076; 81003; 83735; 83880; 84484; 85025; 85610; 93005; 99284; J7030